=== PATIENT | female | born 1955 | race Caucasian/White ===

== ENCOUNTER 2020-04-20 10:29 | Outpatient (REF) | payer BC, SELFPAY ==
[2020-04-20 11:36] LABS: Hematocrit 26.1 % (37-47); Hemoglobin 7.9 g/dl (12.0-16.0); Mean Corpuscular HGB Conc 30.3 g/dl (31.0-35.0); Mean Corpuscular Hemoglobin 28.2 pg (27.0-33.0); Mean Corpuscular Volume 93.2 fL (80-98); Mean Platelet Volume 9.8 fL (9.4-12.3); Platelet Count 723 X10*3/uL (160-400); Red Cell Distribution Width 14.8 % (11.0-16.0); White Blood Count 6.9 X10*3/uL (4.8-10.8)
== END 2020-04-20 10:30 | disposition home or self-care (01) ==
LOC: HO.WFDLDS 10:29
PROVIDERS: Visit Provider Hospitalist
DX: Z71.1 Person with feared health complaint in whom no diagnosis is made (principal)
CPT/HCPCS: 36415; 85027

== ENCOUNTER 2020-04-28 07:31 | Outpatient (REF) | payer BC, SELFPAY ==
[2020-04-28 10:56] LABS: Hematocrit 28.2 % (37-47); Hemoglobin 8.5 g/dl (12.0-16.0); Mean Corpuscular HGB Conc 30.1 g/dl (31.0-35.0); Mean Corpuscular Hemoglobin 27.4 pg (27.0-33.0); Mean Platelet Volume 9.8 fL (9.4-12.3); Platelet Count 573 X10*3/uL (160-400); Red Cell Distribution Width 15.7 % (11.0-16.0); White Blood Count 7.9 X10*3/uL (4.8-10.8)
[2020-04-28 11:25] LABS: Iron 25 mcg/dL (30-160); Percent Iron Saturation 6 % (15-50); Total Iron Binding Capacity 389 mcg/dL (228-428); Unsaturated Iron Binding 364 ug/dL
== END 2020-04-28 07:32 | disposition home or self-care (01) ==
LOC: HO.WFDLDS 07:31
PROVIDERS: Visit Provider Hospitalist
DX: D64.9 Anemia, unspecified (principal)
CPT/HCPCS: 36415; 83540; 85027

== ENCOUNTER 2020-06-18 06:58 | Outpatient (REF) | payer BC, SELFPAY ==
[2020-06-18 07:50] LABS: MANUAL DIFF FLAG NO
[2020-06-18 07:55] LABS: Basophils Absolute Auto 0.1 X10*3/uL (0.0-0.2); Eosinophils Absolute Auto 0.5 X10*3/uL (0.0-0.4); Eosinophils Percent Auto 6.1 % (0-4); Hematocrit 32.3 % (37-47); Hemoglobin 9.5 g/dl (12.0-16.0); Imm Gran Abs Auto 0.04 X10*3/uL (0.00-0.03); Imm Gran Pct Auto 0.5 % (0.0-0.4); Lymphocytes Absolute Auto 2.2 X10*3/uL (1.2-4.9); Lymphocytes Percent Auto 26.2 % (20-40); Mean Corpuscular HGB Conc 29.4 g/dl (31.0-35.0); Mean Corpuscular Hemoglobin 23.5 pg (27.0-33.0); Mean Platelet Volume 9.6 fL (9.4-12.3); Monocytes Absolute Auto 0.6 X10*3/uL (0.1-1.2); Monocytes Percent Auto 6.7 % (2-11); Neutrophils Percent Auto 59.5 % (45-73); Platelet Count 441 X10*3/uL (160-400); Red Blood Count 4.04 X10*6/uL (4.20-5.50); Red Cell Distribution Width 18.3 % (11.0-16.0); White Blood Count 8.4 X10*3/uL (4.8-10.8)
[2020-06-18 08:19] LABS: Iron 23 mcg/dL (30-160); Percent Iron Saturation 5 % (15-50); Total Iron Binding Capacity 435 mcg/dL (228-428); Unsaturated Iron Binding 412 ug/dL
== END 2020-06-18 06:59 | disposition home or self-care (01) ==
LOC: HO.LAB 06:58
PROVIDERS: Visit Provider Family Medicine
DX: D64.9 Anemia, unspecified (principal)
CPT/HCPCS: 36415; 83540; 85025

== ENCOUNTER 2020-08-13 07:55 | Outpatient (REF) | payer BC, SELFPAY ==
[2020-08-13 08:18] LABS: MANUAL DIFF FLAG NO
[2020-08-13 08:24] LABS: Basophils Absolute Auto 0.1 X10*3/uL (0.0-0.2); Basophils Percent Auto 0.9 % (0-2); Eosinophils Absolute Auto 0.2 X10*3/uL (0.0-0.4); Eosinophils Percent Auto 4.2 % (0-4); Hematocrit 39.9 % (37-47); Hemoglobin 12.6 g/dl (12.0-16.0); Imm Gran Abs Auto 0.02 X10*3/uL (0.00-0.03); Imm Gran Pct Auto 0.4 % (0.0-0.4); Lymphocytes Absolute Auto 1.5 X10*3/uL (1.2-4.9); Lymphocytes Percent Auto 25.6 % (20-40); Mean Corpuscular HGB Conc 31.6 g/dl (31.0-35.0); Mean Corpuscular Hemoglobin 28.4 pg (27.0-33.0); Mean Corpuscular Volume 89.9 fL (80-98); Mean Platelet Volume 9.2 fL (9.4-12.3); Monocytes Absolute Auto 0.4 X10*3/uL (0.1-1.2); Monocytes Percent Auto 7.8 % (2-11); Neutrophils Absolute Auto 3.5 X10*3/uL (2.0-8.3); Neutrophils Percent Auto 61.1 % (45-73); Platelet Count 283 X10*3/uL (160-400); Red Blood Count 4.44 X10*6/uL (4.20-5.50); Red Cell Distribution Width 23.2 % (11.0-16.0); White Blood Count 5.7 X10*3/uL (4.8-10.8)
[2020-08-13 09:02] LABS: Iron 345 mcg/dL (30-160); Total Iron Binding Capacity < 362 mcg/dL (228-428); Unsaturated Iron Binding < 17 ug/dL
== END 2020-08-13 07:56 | disposition home or self-care (01) ==
LOC: HO.LAB 07:55
PROVIDERS: PCP Hospitalist; Visit Provider Family Medicine
DX: D64.9 Anemia, unspecified (principal); E61.1 Iron deficiency
CPT/HCPCS: 36415; 83540; 85025

== ENCOUNTER 2021-03-09 08:26 | Outpatient (REF) | payer BC, SELFPAY ==
[2021-03-09 10:33] LABS: Hematocrit 39.7 % (37.0-47.0); Mean Corpuscular HGB Conc 32.7 g/dl (31.0-35.0); Mean Corpuscular Hemoglobin 34.9 pg (27.0-33.0); Mean Corpuscular Volume 106.7 fL (80.0-98.0); Mean Platelet Volume 10.4 fL (9.4-12.3); Platelet Count 262 X10*3/uL (160-400); Red Blood Count 3.72 X10*6/uL (4.20-5.50); Red Cell Distribution Width 12.4 % (11.0-16.0); White Blood Count 6.3 X10*3/uL (4.8-10.8)
[2021-03-09 11:23] LABS: Alanine Aminotransferase 24 U/L (0-31); Albumin Level 3.6 g/dL (3.5-5.0); Alkaline Phosphatase 82 U/L (39-117); Anion Gap 14 (12-20); Aspartate Amino Transferase 30 U/L (5-31); Bilirubin Total 0.7 mg/dL (0.0-1.0); Blood Urea Nitrogen 9 mg/dL (9-16); Calcium 9.4 mg/dL (8.4-10.2); Carbon Dioxide 25 mmol/L (22-29); Chloride 108 mmol/L (96-108); Cholesterol 189 mg/dL; Estimated Glomerular Filt Rate > 60; Glucose Fasting 117 mg/dL (60-99); HDL Cholesterol 68 mg/dL; LDL Cholesterol Calculated 103 mg/dl; Potassium 4.1 mmol/L (3.3-5.1); Sodium 143 mmol/L (135-145); Triglycerides 94 mg/dL
== END 2021-03-09 08:27 | disposition home or self-care (01) ==
LOC: HO.WFDLDS 08:26
PROVIDERS: Visit Provider Hospitalist
DX: Z00.01 Encounter for general adult medical examination with abnormal findings (principal); E61.1 Iron deficiency; F10.20 Alcohol dependence, uncomplicated; R56.9 Unspecified convulsions; F17.200 Nicotine dependence, unspecified, uncomplicated
CPT/HCPCS: 36415; 80053; 80061; 84443; 85027

== ENCOUNTER 2021-10-02 07:56 | Outpatient (REF) | payer MEDICARE, SELFPAY ==
[2021-10-02 08:19] LABS: MANUAL DIFF FLAG NO
[2021-10-02 08:41] LABS: Basophils Percent Auto 0.5 % (0-2); Eosinophils Absolute Auto 0.3 X10*3/uL (0.0-0.4); Eosinophils Percent Auto 5.5 % (0-4); Hematocrit 39.4 % (37.0-47.0); Hemoglobin 13.4 g/dl (12.0-16.0); Imm Gran Abs Auto 0.02 X10*3/uL (0.00-0.03); Imm Gran Pct Auto 0.4 % (0.0-0.4); Lymphocytes Absolute Auto 1.3 X10*3/uL (1.2-4.9); Lymphocytes Percent Auto 23.2 % (20-40); Mean Corpuscular Hemoglobin 35.7 pg (27.0-33.0); Mean Corpuscular Volume 105.1 fL (80.0-98.0); Mean Platelet Volume 9.9 fL (9.4-12.3); Monocytes Absolute Auto 0.5 X10*3/uL (0.1-1.2); Monocytes Percent Auto 8.6 % (2-11); Neutrophils Absolute Auto 3.5 x10*3/uL (2.0-8.3); Neutrophils Percent Auto 61.8 % (45-73); Platelet Count 240 X10*3/uL (160-400); Red Blood Count 3.75 X10*6/uL (4.20-5.50); Red Cell Distribution Width 13.2 % (11.0-16.0); White Blood Count 5.7 X10*3/uL (4.8-10.8)
[2021-10-02 09:14] LABS: Alanine Aminotransferase 41 U/L (0-31); Albumin Level 4.1 g/dL (3.5-5.0); Alkaline Phosphatase 117 U/L (39-117); Anion Gap 15 (12-20); Aspartate Amino Transferase 63 U/L (5-31); Bilirubin Total 0.7 mg/dL (0.0-1.0); Blood Urea Nitrogen 6 mg/dL (9-16); Calcium 9.4 mg/dL (8.4-10.2); Carbon Dioxide 26 mmol/L (22-29); Chloride 105 mmol/L (96-108); Estimated Glomerular Filt Rate > 60; Glucose Fasting 117 mg/dL (60-99); Lipase 38 U/L (8-78); Potassium 4.2 mmol/L (3.3-5.1); Sodium 142 mmol/L (135-145); Total Protein 6.5 g/dL (6.5-8.0)
[2021-10-02 09:26] LABS: TSH reflex Free T4 4.64 uIU/mL (0.32-4.0)
[2021-10-02 09:49] LABS: Appearance Urine CLEAR; Color Urine YELLOW; Glucose Urine UA NEG (NEG); Leukocyte Esterase Urine 1+ (NEG); Nitrite Urine NEG (NEG); Urine Blood NEG (NEG); Urine Ketones 5 MG/DL (NEG); Urine Protein TRACE MG/DL (NEG-TRACE)
[2021-10-02 10:06] LABS: Free T4 (Free Thyroxine) 0.83 ng/dL (0.71-1.85)
[2021-10-02 10:12] LABS: Amorphous Sediment Urine 3+ /LPF
[2021-10-02 10:13] LABS: Bacteria Urine 1+ /LPF; Squamous Epithelial Cell Urine 2+ /LPF; WBC Urine 0-2 /HPF (0-4)
[2021-10-02 10:14] LABS: RBC Urine 0 /HPF (0)
== END 2021-10-02 07:57 | disposition home or self-care (01) ==
LOC: HO.LAB 07:56
PROVIDERS: PCP Family Medicine; Visit Provider Family Medicine
DX: Z00.00 Encounter for general adult medical examination without abnormal findings (principal); R63.6 Underweight
CPT/HCPCS: 36415; 80053; 81001; 83690; 84439; 84443; 85025

== ENCOUNTER 2022-05-11 08:18 | Outpatient (REF) | payer MEDICARE, SELFPAY ==
[2022-05-11 12:05] LABS: Cholesterol 236 mg/dL; HDL Cholesterol 67 mg/dL; LDL Cholesterol Calculated 152 mg/dl; Triglycerides 88 mg/dL
== END 2022-05-11 08:19 | disposition home or self-care (01) ==
LOC: HO.WFDLDS 08:18
PROVIDERS: Visit Provider Hospitalist
DX: Z13.220 Encounter for screening for lipoid disorders (principal); Z79.899 Other long term (current) drug therapy
CPT/HCPCS: 36415; 80061

== ENCOUNTER 2022-06-20 09:38 | Outpatient (REF) | payer MEDICARE, SELFPAY ==
--- NOTE | ~2022-06-20 | MM_ITS ---
EXAMINATION: MM SCREENING DIGITAL BREAST TOMOSYNTHESIS, BILATERAL CLINICAL INFORMATION: Screening. Asymptomatic. Family history breast cancer, sister. The lifetime risk of breast cancer based on the Tyrer-Cuzick Model is 7%. COMPARISON: Outside mammography: 07/26/2011, 06/23/2009, 01/13/2008 ([facility]). TECHNIQUE: Digital breast tomosynthesis is performed in both the craniocaudal and mediolateral oblique views along with computer-aided detection (CAD). Synthesized 2D images are generated from the tomosynthesis. FINDINGS: There are scattered areas of fibroglandular density (ACR BI-RADS breast composition Category b). There are no significant masses, abnormal calcifications, or other abnormalities. Parenchymal pattern is similar to prior outside exams. There is no developing density or architectural abnormality. The axilla and skin contours are unremarkable. No significant changes. MM/MM tomosynthesis screening BI IMPRESSION: No mammographic evidence of malignancy. ASSESSMENT: BI-RADS 1: Negative RECOMMENDATION: Routine annual mammography screening. This patient's information was entered into a reminder system with a target due date for their next mammogram.
== END 2022-06-20 09:39 | disposition home or self-care (01) ==
LOC: HO.MAMMO 09:38
PROVIDERS: PCP Hospitalist; Visit Provider Hospitalist
DX: Z12.31 Encounter for screening mammogram for malignant neoplasm of breast (principal)
CPT/HCPCS: 77063; 77067

== ENCOUNTER 2023-01-07 12:33 | Outpatient (AMB) | payer MEDICARE, SELFPAY ==
--- NOTE | 2023-01-07 12:37 | A.OFFPC_ITS ---
Vital Signs 01/07/23 12:39 01/07/23 13:41 Height 5 ft 6 in Weight 145 lb 4 oz BMI 23.4 BP 152/92 H 150/90 H Blood Pressure Location Lt brachial Rt brachial Position Sitting Sitting Respiration 13 Pulse 100 Pulse Source Pulse Oximeter Pulse Oximetry (%) 96 Oxygen Delivery Method Room Air Intake Visit Reasons: Extended exam Intake Note: Patient is here for a physical. Patient is accompanied by her spouse- Kurt. Patient reports she feels like her ears need to be cleaned due to narrow ear canals causing hearing decrease. Acid Splicer Required: No Accompanied by: Spouse Allergies No Known Allergies Allergy (Verified 01/07/23 12:54) Medication List - Last Reconciled 01/07/23 by Jimmy Tinsley CNP acetaminophen 500 mg PO Q6H PRN atorvastatin 20 mg PO BEDTIME duloxetine 120 mg PO QAM food supplemt, lactose-reduced (Ensure oral liquid) 1 ea PO DAILY 30 days ibuprofen 800 mg PO Q8H PRN levetiracetam 1,000 mg PO BID lorazepam 1 mg PO TID PRN ondansetron 8 mg PO Q8H PRN 14 days pantoprazole 20 mg PO DAILY 30 days sucralfate 1 g PO BID 14 days Tobacco use date assessed: 01/07/23 Fall risk assessment: No Falls in past year Last assessed Fall Risk: 01/07/23 Dental Screening Dental Screen Date: 01/07/23 Did you have a dental visit in the last 12 months?: Yes Did you have a dental problem in the last 6 months where you did not have access to dental care?: No Was dental information given to patient?: Patient has dentist HPI HPI Comments History of Present Illness Details 67-year-old female, accompanied by her s teja, presents for a complete physical exam. Her former PCP is PER, who is no longer with our practice. She has past medical history significant for seizure, arthritis of both hips, tobacco dependence, alcohol dependence, fatty liver, hypercholesterolemia, anxiety, and depression. She admits to taking her medications as prescribed. She is followed by psychiatry who manages her psychotropic medications. She has not had routine blood work done in over a year. Her last mammogram was in July 2022: Normal Her notes that her [place] [facility] [place]: normal She notes that her last pap smear test was 4 years ago: normal She does not recall if she has had a bone scan She states that she had lung cancer screening several years ago: normal She notes that she had the PNA vaccines a year ago She states that she had the shingrix vaccines several years ago She smokes 3-4 cigarettes daily. She has been smoking for the past 40 years. She smoked 10 cigarettes daily until 2 years ago when she cuts done to 3-4 cigarettes daily. She notes she drinks 2-3 beers every other day. She denies recreational drug use. [facility] Surgical History History of tonsillectomy History of tubal ligation Family History Father Alzheimers disease Mother Heart disease COPD (chronic obstructive pulmonary disease) CHF (congestive heart failure) Sister Brain tumor Social History (Updated 01/07/23 @ 12:47 by Anya Weller CMA) Household Members: Spouse Housing: House Alcohol intake: current Alcohol intake frequency: a few times a week Alcohol type: beer Patient Tobacco Use Status: Current everyday Tobacco user Tobacco use type: Cigarette Cigarettes Per Day: 3 Years Smoked: 45 e-Cigarette/Vaping Use: Never Used Second Hand Smoke Exposure: No service: No Current occupational status: retired Current occupational exposures/hazards: No Sexual orientation: Unable to collect Gender identity: Unable to collect Cognitive needs: No Hearing needs: No Vision needs: No Questionnaire PHQ-9 Over the last 2 weeks, how often have you been bothered by any of the following problems? 1. Little interest or pleasure in doing things: not at all 2. Feeling down, depressed, or hopeless: several days 3. Trouble falling or staying asleep, or sleeping too much: several days 4. Feeling tired or having little energy: several days 5. Poor appetite or overeating: several days 6. Feeling bad about yourself - or that you are a failure or have let yourself or your family down: not at all 7. Trouble concentrating on things, such as reading the newspaper or watching television: not at all 8. Moving or speaking so slowly that other people could have noticed. Or the opposite - being so fidgety or restless that you have been moving around a lot more than usual: not at all 9. Thoughts that you would be better off or of hurting yourself in some way: not at all Total score: 4 Depression Screening Interpretation: Negative Depression Screening Done: Yes 59125 - PHQ-9 Billing: Yes Source: Developed by Drs. Ronal Webb, Elizabeth Davis, Ryan Calvillo and colleagues, with an educational jomar from [employer]. Thrive Questionnaire Date Thrive assessed: 01/07/23 I am a: Patient What is your living situation today?: I have a steady place to live Within the past 12 months, did the food you bought not last and you didn't have the money to get more?: Never true Within the past 12 months, did you worry whether your food would run out before you got money to buy more?: Never true Do you have trouble paying for medicines?: No Do you have trouble getting transportation to medical appointments?: No Do you have trouble paying your heating and electricity bill?: No Do you have trouble taking care of your child, family member or friend?: No Do you have trouble with day-to-day activities such as bathing, preparing meals, shopping, managing finances, etc.?: No Are you currently unemployed and looking for a job?: No Are you interested in more education?: No Please select the resources that you would like help with: None Currently or been in a relationship where the following occur: no concerns repor kathryn AUDIT C Alcohol Use Questionnaire (AUDIT-C) 1. How often do you have a drink containing alcohol?: 2-3 times a week 2. How many drinks containing alcohol do you have on a typical day when you are drinking?: 1 or 2 3. How often do you have six or more drinks on one occasion?: Never Total Score: 3 ABDIAS-7 AMB Questionnaire ABDIAS-7 Date ABDIAS - 7 assessed: 01/07/23 Feeling nervous, anxious, or on edge: 2 = More than half the days Not being able to stop or control worryin = Several days Worrying too much about different things: 1 = Several days Trouble relaxin = More than half the days Being so restless that it is hard to sit still: 0 = Not at all Becoming easily annoyed or irritable: 1 = Several days Feeling afraid as if something awful might happen: 0 = Not at all Total ABDIAS-7 score (0-4 normal; 5-9 mild; 10-14 moderate; 15-21 severe): 7 Source: Developed by Drs. Ronal Webb, Elizabeth Davis, Ryan Calvillo and colleagues, with an educational jomar from [employer]. ABDIAS-7 Assessment Billing ABDIAS-7 Assessment Tool: ABDIAS-7 Assessment 97639 Review of Systems Const Details: Denies chills, Denies fatigue, Denies fever(s), Denies headache(s) and Denies weakness HEENT Denies change in vision, Denies dizziness, Denies headache(s), Denies hearing loss, Denies nasal congestion, Denies sinus pain, Denies sinus pressure and Denies sore throat Card Denies chest pain, Denies lightheadedness, Denies dyspnea and Denies other (palpitations) Resp Denies cough, Denies dyspnea and Denies wheezing GI Denies abdominal pain, Denies melena, Denies hematochezia, Denies change in bowel habits, Denies dyspepsia and Denies nausea Denies hematuria and Denies dysuria Musc Denies abnormal gait, Denies myalgias, Denies arthralgias, Denies numbness and Denies tingling Skin/Breast Denies rash, Denies unusual bruising and Denies wounds Neuro Denies abnormal gait, Denies dizziness, Denies headache(s), Denies memory loss, Denies numbness, Denies Sensory deficit (Neuro), Denies tingling and Denies weakness Psych Denies anxiety, Denies depression and Denies memory loss Endo Denies cold intolerance, Denies fatigue, Denies heat intolerance, Denies polydipsia and Denies polyuria Andrade/Lymph Denies easy bleeding and Denies easy bruising Aller/Immun Denies wheezing Physical exam (Primary Care) Vital Signs: Last Vital Signs Pulse 100 01/07/23 12:39 Resp 13 01/07/23 12:39 BP 150/90 H 01/07/23 13:41 Pulse Ox 96 01/07/23 12:39 Oxygen Delivery Method Room Air 01/07/23 12:39 BMI result Body Mass Index 23.4 Tobacco/Smoking Status: Tobacco use Status Tobacco use date assessed 01/07/23 01/07/23 12:48 Patient Tobacco Use Status Current everyday Tobacco 01/07/23 12:48 Tobacco use type Cigarette 01/07/23 12:48 e-Cigarette/Vaping Use Never Used 01/07/23 12:48 PHQ-9: PHQ-9 Score PHQ-9: Total score 4 01/07/23 15:25 Depression Screening Interpretation: Negative Thrive Assessment: Date of Thrive Assessment Date Thrive assessed 01/07/23 01/07/23 12:54 Currently or been in a relationship where the following occur: no concerns reported Const Other: General: no acute distress, well developed, alert and awake Nutritional Appearance: well nourished Orientation/consciousness: patient oriented x3 HENMT Head: Yes normocephalic and Yes atraumatic Ears: hearing grossly normal bilaterally and TM's normal bilaterally. Significant cerumen in the left ear canal General nose exam: Normal external nose present and Normal nares present Mouth: Normal oral and palatal mucosa present and moist mucous membranes Teeth and gingiva: dentition normal Throat: Yes oropharynx normal Eyes Pupils: Equal, round and reactive pupils present and Pupil accommodation reflex normal EOM: EOMs intact bilaterally Neck Neck: Yes normal visual inspection, Yes no lymphadenopathy and Yes trachea midline Thyroid: Thyroid normal Carotids: no bruits Lymphatic: no lymphadenopathy noted Chest Chest palpation & inspection: normal inspection of the chest Resp Effort & Inspection: normal respiratory effort Auscultation: clear to auscultation bilaterally Cardio Rate: regular rate Rhythm: regular rhythm Heart sounds: S1 normal heart sound present, S2 normal heart sound present, no gallops, no murmurs and no rubs Bruits: no abdominal aortic bruits and no carotid bruits GI Palpation (GI): No Abdominal aortic bruit present, Soft to palpation, nontender, No hepatosplenomegaly present and No Rebound tenderness present Auscultation: normal bowel sounds General: Yes no CVA tenderness Back/Spine/Pelvis Back: no CVA tenderness Cervical Spine: cervical ROM normal and No Cervical spine tenderness Thoracic/Lumbar Spine: thoraco-lumbar ROM normal, No pain with thoraco-lumbar ROM, No thoracic spinal tenderness and No lumbar spinal tenderness Skin General: warm and dry. Normal skin color. Normal skin turgor Lesions: no lesions Rashes: no rashes Trauma: no lacerations or abrasions Wounds: no wounds Nails: normal Neuro General: patient oriented x3, gait normal and CN's II-XI intact bilaterally Cranial nerves: Yes Equal, round and reactive pupils present Cognition (Neuro): normal cognition Gait exam (Neuro): Normal gait present Motor exam (neuro): 5/5 motor strength present throughout Sensory Exam: No Sensory deficit (Neuro) Deep tendon reflexes (DTR's): Right patellar reflex intensity grade: 2+ and Left patellar reflex intensity grade: 2+ Extrem General: Yes normal to inspection, No edema and No calf tenderness Psych Appearance: grossly normal Affect: normal affect Attitude: cooperative Thought process: Normal thought process present Assessment and Plan Assessment & Plan (1) Normal physical examination, routine: Code(s): Z00.00 - Encounter for general adult medical examination without abnormal findings Plan: No significant physical restrictions or limitations noted Encouraged to get routine fasting blood work done in follow-up in 1 month for lab reviews and chronic disease management Could not retrieve colonoscopy record. The [place] inform to request old medical records for review Return sooner with symptoms or concerns Verbalized understanding and agreed with the plan. (2) Anxiety and depression: Code(s): F41.9 - Anxiety disorder, unspecified; F32.A - Depression, unspecified Plan: PHQ-9 is normal. ABDIAS-7 score reveals mild anxiety Continue with current treatment regimen Routine exercise encouraged Continue follow-up with psychiatrist as planned Verbalized understanding and agreed with the treatment plan. (3) Hypercholesterolemia: Code(s): E78.00 - Pure hypercholesterolemia, unspecified Plan: Recent lipid labs was in April 2022. Triglyceride 88, total cholesterol 236, LDL 152, and HDL 67 Will recheck lipid panel Continue to take atorvastatin as prescribed Advised to limit foods high in saturated fat and avoid foods high trans fat Routine exercise encouraged Verbalized understanding and agreed with the treatment plan. (4) Impacted cerumen, left ear: Code(s): H61.22 - Impacted cerumen, left ear Plan: Significant cerumen in the left ear canal; TM is normal Debrox ordered. Use as prescribed May follow-up for ear irrigation Verbalized understanding and agreed with the treatment plan. (5) Tobacco dependence: Code(s): F17.200 - Nicotine dependence, unspecified, uncomplicated Plan: She smokes 3-4 cigarettes daily. She has been smoking for the past 40 years. She smoked 10 cigarettes daily until 2 years ago when she cut done to 3-4 cigarettes daily. She states that she had lung cancer screening several years ago: normal Instructed on the health risks and complications of cigarette smoking Smoking cessation encouraged Declines medication treatment for smoking cessation LDCT ordered for lung cancer screening (6) Screening for lung cancer: Code(s): Z12.2 - Encounter for screening for malignant neoplasm of respiratory organs Plan: As above (7) Alcohol dependence in controlled environment: Code(s): F10.20 - Alcohol dependence, uncomplicated Plan: She notes she drinks 2-3 beers every other day Instructed on the health risks and complications of excessive alcohol intake Advised to limit or avoid alcohol intake Declines referral to addiction medicine (8) Age-related osteoporosis without current pathological fracture: Code(s): M81.0 - Age-related osteoporosis without current pathological fracture Plan: She does not recall if she has had a bone scan DEXA scan ordered (9) Elevated blood pressure reading in office without diagnosis of hypertension: Code(s): R03.0 - Elevated blood-pressure reading, without diagnosis of hypertension Plan: Resting blood pressure is 150/90, above goal of less than 140/90 She reports history of low blood pressure readings She admits to consuming significant amount of salt at times Denies family history of hypertension Low-sodium diet encouraged Advised to continue to monitor blood pressure at home daily and to report readings persistently above 140/90 with or without symptoms Follow-up for nurse visit for blood pressure check in 2 weeks Return sooner with symptoms or concerns Verbalized understanding and agreed with treatment plan. Orders: Orders XR DEXA axial skeleton Today M81.0 - Age-related osteoporosis without current pathological fracture Medications: New carbamide peroxide 6.5% (Debrox) 5 drps otic (ear) left DAILY 4 days 15 mL 0RF Coding Level of Care Code Est Pt Prev Care >65y(83800) Diagnoses Normal physical examination, routine Z00.00 Anxiety and depression F41.9; F32.A Hypercholesterolemia E78.00 Impacted cerumen, left ear H61.22 Tobacco dependence F17.200 Screening for lung cancer Z12.2 Alcohol dependence in controlled environment F10.20 Age-related osteoporosis without current pathological fracture M81.0 Elevated blood pressure reading in office without diagnosis of hypertension R03.0 Additional Codes ABDIAS-7 Assessment Billing - ABDIAS-7 Assessment Tool: ABDIAS-7 Assessment 98165 ([id number])
[2023-01-07 12:39] VITALS: BP 152/92; PULSE 100; RESP 13; O2SAT 96; BMI 23.4
[2023-01-07 13:41] VITALS: BP 150/90
== END 2023-01-07 13:42 | disposition home or self-care (01) ==
PROVIDERS: PCP Nurse Practitioner Family; Visit Provider Nurse Practitioner Family
DX: Z00.00 Encounter for general adult medical examination without abnormal findings (principal); F41.9 Anxiety disorder, unspecified; F32.A Depression, unspecified; F10.20 Alcohol dependence, uncomplicated; E78.00 Pure hypercholesterolemia, unspecified; H61.22 Impacted cerumen, left ear; F17.210 Nicotine dependence, cigarettes, uncomplicated; Z12.2 Encounter for screening for malignant neoplasm of respiratory organs; M81.0 Age-related osteoporosis without current pathological fracture; R03.0 Elevated blood-pressure reading, without diagnosis of hypertension
CPT/HCPCS: 99397

== ENCOUNTER 2023-02-08 08:24 | Outpatient (REF) | payer MEDICARE, SELFPAY ==
[2023-02-08 11:30] LABS: Hematocrit 46.6 % (37.0-47.0); Hemoglobin 15.4 g/dl (12.0-16.0); Mean Corpuscular Hemoglobin 33.9 pg (27.0-33.0); Mean Corpuscular Volume 102.6 fL (80.0-98.0); Mean Platelet Volume 9.8 fL (9.4-12.3); Platelet Count 277 X10*3/uL (160-400); Red Blood Count 4.54 X10*6/uL (4.20-5.50); Red Cell Distribution Width 12.9 % (11.0-16.0); White Blood Count 8.8 X10*3/uL (4.8-10.8)
[2023-02-08 12:02] LABS: Alanine Aminotransferase 14 U/L (0-31); Albumin Level 4.3 g/dL (3.5-5.0); Alkaline Phosphatase 89 U/L (39-117); Anion Gap 17 (12-20); Aspartate Amino Transferase 25 U/L (5-31); Bilirubin Total 0.7 mg/dL (0.0-1.0); Blood Urea Nitrogen 13 mg/dL (9-16); Calcium 9.4 mg/dL (8.4-10.2); Carbon Dioxide 27 mmol/L (22-29); Chloride 104 mmol/L (96-108); Cholesterol 238 mg/dL (<200); Estimated Glomerular Filt Rate > 60; Glucose Fasting 94 mg/dL (60-99); HDL Cholesterol 83 mg/dL (>40); LDL Cholesterol Calculated 133 mg/dL (<100); Potassium 4.2 mmol/L (3.3-5.1); Sodium 144 mmol/L (135-145); Total Protein 7.2 g/dL (6.5-8.0); Triglycerides 112 mg/dL (<150)
[2023-02-08 12:23] LABS: TSH reflex Free T4 1.31 uIU/mL (0.32-4.0)
== END 2023-02-08 08:25 | disposition home or self-care (01) ==
LOC: HO.WFDLDS 08:24
PROVIDERS: Visit Provider Nurse Practitioner Family
DX: Z00.00 Encounter for general adult medical examination without abnormal findings (principal); E78.00 Pure hypercholesterolemia, unspecified
CPT/HCPCS: 36415; 80053; 80061; 84443; 85027

== ENCOUNTER 2023-02-12 07:56 | Outpatient (REF) | payer MEDICARE, SELFPAY ==
--- NOTE | ~2023-02-12 | MM_ITS ---
EXAMINATION: BONE DENSITOMETRY CLINICAL INDICATION: Age-related osteoporosis without current pathological fracture. COMPARISON: This is the patient's baseline examination. TECHNIQUE: Using a [employer] DXA System (software version: 13.1) manufactured by [employer], dual-energy x-ray absorptiometry was performed of the lumbar spine and left forearm radius 33%. Patient had bilateral hip replacements. The images are of good technical quality. Summary results are attached. FINDINGS: AP SPINE L1-L4: BMD 0.940 g/cm2, Z-score -0.3, T-score -2.0, osteopenia. LEFT FOREARM RADIUS 33%: BMD 0.770 g/cm2, Z-score 0.4, T-score -1.2, osteopenia. IDENTIFIED RISK FACTORS: Menopause, current smoker. HISTORY OF FRACTURE: None listed. MEDICATIONS: Calcium supplements or multivitamin, vitamin D. MM/XR DEXA axial skeleton IMPRESSION: 1. DIAGNOSIS: Osteopenia based on the lowest T-score value of -2.0 in the lumbar spine applying World Health Organization criteria. 2. 10-YEAR FRACTURE RISK PREDICTION, FRAX: Not performed in this patient without a femoral neck BMD measurement. 3. Treatment Recommendations: NOF guidelines recommend consideration for treatment in postmenopausal women and men age 50 and older presenting with the following: -A hip or vertebral (clinical or morphometric) fracture. -T-score less than or equal to -2.5 at the femoral neck or spine after appropriate evaluation to exclude secondary causes. -Low bone mass at the hip or spine and a 10-year fracture probability by FRAX of greater than or equal to 3% for hip fracture or greater than or equal to 20% for major osteoporotic fracture based on the [place] adapted WHO algorithm. 4. Other Recommendations: All treatment decisions require clinical judgment and consideration of individual patient factors, including patient preferences, comorbidities, previous drug use, risk factors not captured in the FRAX model (e.g. frailty, falls, vitamin D deficiency, increased bone turnover, interval significant decline in bone density) and possible under or overestimation of fracture risk by FRAX. Additional medical evaluation for secondary cause of low bone mineral density may be appropriate. FUTURE SCAN RECOMMENDATION: People with diagnosed cases of osteoporosis or at high risk for fracture should have regular bone mineral density tests. For patients eligible for Medicare, routine testing is allowed once every 2 years. The testing frequency can be increased to one year for patients who have rapidly progressing disease, those who are receiving or discontinuing medical therapy to restore bone mass, or have additional risk factors.
== END 2023-02-12 07:57 | disposition home or self-care (01) ==
LOC: HO.MAMMO 07:56
PROVIDERS: PCP Nurse Practitioner Family; Visit Provider Nurse Practitioner Family
DX: Z13.820 Encounter for screening for osteoporosis (principal); Z78.0 Asymptomatic menopausal state; M81.0 Age-related osteoporosis without current pathological fracture
CPT/HCPCS: 77080

== ENCOUNTER 2023-02-14 12:34 | Outpatient (AMB) | payer MEDICARE, SELFPAY ==
[2023-02-14 12:36] VITALS: BP 132/76; PULSE 103; RESP 13; TEMP 36.4; O2SAT 99; BMI 23.2
--- NOTE | 2023-02-14 12:36 | MHC.PC.OV ---
Vital Signs 02/14/23 12:36 Height 5 ft 6 in Weight 144 lb BMI 23.2 BP 132/76 Blood Pressure Location Rt brachial Position Sitting Respiration 13 Pulse 103 H Pulse Source Pulse Oximeter Temp 97.5 F Temp Source Temporal Artery Scan Pulse Oximetry (%) 99 Oxygen Delivery Method Room Air Intake Visit Reasons: abs review, chronic disease management Intake Note: Patient would like refill on ibuprofen. 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 Accompanied by: Spouse Allergies No Known Allergies Allergy (Verified 02/14/23 12:50) Medication List - Last Reconciled 02/14/23 by Jimmy Tinsley CNP atorvastatin 20 mg PO BEDTIME duloxetine 120 mg PO QAM food supplemt, lactose-reduced (Ensure oral liquid) 1 ea PO DAILY 30 days ibuprofen 800 mg PO Q8H PRN levetiracetam 1,000 mg PO BID lorazepam 1 mg PO TID PRN Tobacco use date assessed: 01/07/23 Fall risk assessment: No Falls in past year Last assessed Fall Risk: 02/14/23 Dental Screening Dental Screen Date: 02/14/23 Did you have a dental visit in the last 12 months?: Yes Did you have a dental problem in the last 6 months where you did not have access to dental care?: No Was dental information given to patient?: Patient has dentist HPI HPI Comments History of Present Illness Details 67-year-old female, accompanied by her , presents for chronic disease management follow-up and review of recent blood work She brought a BP log for the past 7 days. Her BP readings average between 117-143/62-81 She notes that she has never taking atorvastatin that was initially prescribed in April 2022. She notes that she was never informed the medication was prescribed and never picked it up from the pharmacy She reports diminished hearing of the left ear which she attributes to possible cerumen impaction. She reports history of cerumen impaction She denies acute symptoms at this time [facility] Medical History (Updated 02/14/23 @ 12:57 by Jimmy Tinsley CNP) No pertinent past medical history Surgical History History of tonsillectomy History of tubal ligation Family History Father Alzheimers disease Mother Heart disease COPD (chronic obstructive pulmonary disease) CHF (congestive heart failure) Sister Brain tumor Social History Household Members: Spouse Housing: House Alcohol intake: current Alcohol intake frequency: a few times a week Alcohol type: beer Patient Tobacco Use Status: Current everyday Tobacco user Tobacco use type: Cigarette Cigarettes Per Day: 3 Years Smoked: 45 e-Cigarette/Vaping Use: Never Used Second Hand Smoke Exposure: No service: No Current occupational status: retired Current occupational exposures/hazards: No Sexual orientation: Unable to collect Gender identity: Unable to collect Cognitive needs: No Hearing needs: Yes Vision needs: No Questionnaire Thrive Questionnaire Date Thrive assessed: 01/07/23 ABDIAS-7 AMB Questionnaire ABDIAS-7 Date ABDIAS - 7 assessed: 01/07/23 Source: Developed by Drs. Ronal Webb, Elizabeth Davis, Ryan Calvillo and colleagues, with an educational jomar from [employer]. Review of Systems Const Details: Const Denies chills, Denies fatigue, Denies fever(s), Denies headache(s) and Denies weakness ENT Denies dizziness and Denies headache(s) Card Denies chest pain, Denies lightheadedness, Denies dyspnea and Denies other (Palpitations) Resp Denies cough, Denies dyspnea, Denies wheezing and Denies other ( shortness of breath) GI Denies abdominal pain, Denies melena, Denies hematochezia, Denies change in bowel habits, Denies dyspepsia and Denies nausea Denies hematuria and Denies dysuria Musc Denies abnormal gait, Denies myalgias, Denies arthralgias, Denies numbness and Denies tingling Skin/Breast Denies rash, Denies unusual bruising and Denies wounds Neuro Denies abnormal gait, Denies dizziness, Denies headache(s), Denies memory loss, Denies numbness, Denies Sensory deficit (Neuro), Denies tingling and Denies weakness Psych Denies anxiety, Denies depression, Denies memory loss Endo Denies cold intolerance, Denies fatigue, Denies heat intolerance, Denies polydipsia and Denies polyuria Aller/Immun Denies wheezing Physical exam (Primary Care) Vital Signs: Last Vital Signs Temp 97.5 F 02/14/23 12:36 Pulse 103 H 02/14/23 12:36 Resp 13 02/14/23 12:36 BP 132/76 02/14/23 12:36 Pulse Ox 99 02/14/23 12:36 Oxygen Delivery Method Room Air 02/14/23 12:36 BMI result Body Mass Index 23.2 Tobacco/Smoking Status: Tobacco use Status Tobacco use date assessed 01/07/23 02/14/23 12:49 Patient Tobacco Use Status Current everyday Tobacco 02/14/23 12:49 Tobacco use type Cigarette 02/14/23 12:49 e-Cigarette/Vaping Use Never Used 02/14/23 12:49 Thrive Assessment: Date of Thrive Assessment Date Thrive assessed 01/07/23 02/14/23 12:49 Const Other: General: no acute distress and well developed Nutritional Appearance: well nourished Orientation/consciousness: patient oriented x3 HENMT Head is normocephalic Cerumen impaction in the left ear occluding the TM. No overt infection. Right ear canal and TM is normal Nasal turbinates and oropharynx are pink and moist Sinuses are nontender with palpation No auricular or cervical lymphadenopathy Eyes General: appearance normal, both eyes and all related structures Pupils: Equal, round and reactive pupils present EOM: EOMs intact bilaterally Resp Effort & Inspection: normal respiratory effort Auscultation: clear to auscultation bilaterally Cardio Rate: regular rate Rhythm: regular rhythm Heart sounds: S1 normal heart sound present, S2 normal heart sound present, no gallops, no murmurs and no rubs GI Palpation (GI): No Abdominal aortic bruit present, Soft to palpation, nontender, No hepatosplenomegaly present and No Rebound tenderness present Auscultation: normal bowel sounds General: Yes no CVA tenderness Back/Spine/Pelvis Back: no CVA tenderness Cervical Spine: cervical ROM normal and No Cervical spine tenderness Thoracic/Lumbar Spine: thoraco-lumbar ROM normal, No pain with thoraco-lumbar ROM, No thoracic spinal tenderness and No lumbar spinal tenderness Extrem General: Yes normal to inspection, No edema and No calf tenderness Skin General: warm and dry. Normal skin color. Normal skin turgor Neuro General: patient oriented x3, gait normal and no focal neuro deficit Cranial nerves: Yes Equal, round and reactive pupils present Cognition (Neuro): normal cognition Gait exam (Neuro): Normal gait present Sensory Exam: No Sensory deficit (Neuro) Psych Appearance: grossly normal Affect: normal affect Attitude: cooperative Thought process: Normal thought process present Assessment and Plan Assessment & Plan (1) Anxiety and depression: Code(s): F41.9 - Anxiety disorder, unspecified; F32.A - Depression, unspecified Plan: No acute symptoms Continue current treatment regimen Continue follow Psychiatry as planned Return with symptoms or concerns Verbalized understanding and agreed with the treatment plan (2) Hypercholesterolemia: Code(s): E78.00 - Pure hypercholesterolemia, unspecified Plan: Recent lab results reviewed with the patient. Unremarkable lab results except for elevated cholesterol and LDL, 238 and 133 respectively She has not taken atorvastatin since prescribed in April Atorvastatin 10 mg ordered. Take as prescribed Advised to limit foods high in saturated fat and avoid foods high trans fat Routine exercise encouraged Will recheck lipid panel in 6 weeks. Advised to fast for 10-12 hours, may drink water only, and get blood work done before her next visit Follow-up in 6 weeks Verbalized understanding and agreed with treatment plan (3) Osteopenia: Code(s): M85.80 - Other specified disorders of bone density and structure, unspecified site Plan: Recent DEXA scan revealed Osteopenia based on the lowest T-score value of -2.0 in the lumbar spine Vitamin D3 ordered. Take as prescribed Will repeat DEXA scan in 2 years Verbalized understanding and agreed with the treatment plan (4) Impacted cerumen, left ear: Code(s): H61.22 - Impacted cerumen, left ear Plan: Reports diminished hearing in the left ear which she attributes to possible cerumen impaction Cerumen impaction in the left ear occluding the TM. No overt infection. Right ear canal and TM is normal Debrox ordered. Use as prescribed Follow-up in 6 weeks for irrigation Return sooner with worsening or new symptoms Verbalized understanding and agreed with treatment plan Orders: Orders Lipid Panel 6 Weeks E78.00 - Pure hypercholesterolemia, unspecified Medications: New atorvastatin 10 mg PO BEDTIME 30 tabs 3RF 30 days carbamide peroxide 6.5% (Debrox) 5 drps otic (ear) left DAILY 15 mL 0RF 4 days cholecalciferol (vitamin D3) 50 mcg PO DAILY 90 tabs 3RF 90 days Refilled ibuprofen 800 mg PO Q8H PRN 30 tabs 2RF pain M16.0 - Bilateral primary osteoarthritis of hip Coding Level of Care Code Est Pt Level 3 (81733) Diagnoses Anxiety and depression F41.9; F32.A Hypercholesterolemia E78.00 Osteopenia M85.80 Impacted cerumen, left ear H61.22
== END 2023-02-14 13:16 | disposition home or self-care (01) ==
PROVIDERS: PCP Nurse Practitioner Family; Visit Provider Nurse Practitioner Family
DX: E78.00 Pure hypercholesterolemia, unspecified (principal); F41.9 Anxiety disorder, unspecified; F32.A Depression, unspecified; M85.80 Other specified disorders of bone density and structure, unspecified site; H61.22 Impacted cerumen, left ear
CPT/HCPCS: 99213

== ENCOUNTER 2023-03-21 09:11 | Outpatient (REF) | payer MEDICARE, SELFPAY ==
[2023-03-21 12:20] LABS: Cholesterol 181 mg/dL (<200); HDL Cholesterol 57 mg/dL (>40); LDL Cholesterol Calculated 108 mg/dL (<100); Triglycerides 83 mg/dL (<150)
== END 2023-03-21 09:12 | disposition home or self-care (01) ==
LOC: HO.WFDLDS 09:11
PROVIDERS: Visit Provider Nurse Practitioner Family
DX: E78.00 Pure hypercholesterolemia, unspecified (principal)
CPT/HCPCS: 36415; 80061

== ENCOUNTER 2023-03-25 11:30 | Outpatient (AMB) | payer MEDICARE, SELFPAY ==
--- NOTE | 2023-03-25 11:32 | MHC.PC.OV ---
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 Accompanied by: Spouse Allergies No Known Allergies Allergy (Verified 03/25/23 11:49) Medication List - Last Reconciled 03/25/23 by Jimmy Tinsley CNP atorvastatin 10 mg PO BEDTIME 30 days carbamide peroxide 6.5% (Debrox) 5 drps otic (ear) left DAILY 4 days cholecalciferol (vitamin D3) 50 mcg PO DAILY 90 days duloxetine 120 mg PO QAM food supplemt, lactose-reduced (Ensure oral liquid) 1 ea PO DAILY 30 days ibuprofen 800 mg PO Q8H PRN levetiracetam 1,000 mg PO BID lorazepam 1 mg PO TID PRN Tobacco use date assessed: 01/07/23 Fall risk assessment: No Falls in past year Last assessed Fall Risk: 03/25/23 Dental Screening Dental Screen Date: 03/25/23 Did you have a dental visit in the last 12 months?: Yes Did you have a dental problem in the last 6 months where you did not have access to dental care?: No Was dental information given to patient?: Patient has dentist HPI HPI Comments History of Present Illness Details 67-year-old female, accompanied by her , presents for hypercholesterolemia and left ear irrigation follow-up She admits to taking her medications as prescribed without adverse reactions She reports chronic bilat hip pain especially with movements and ambulation. She describes the pain as achy and sore, and 7/10 on the pain scale. The pain occasionally radiates to her right thigh. No tingling or numbness. She had both hip replaced by [facility] about 3 years ago. She is not currently on any pain regimen. She was instructed by GI to stop taking Ibuprofen due to GI issues [facility] Medical History No pertinent past medical history Surgical History History of tonsillectomy History of tubal ligation Family History Father Alzheimers disease Mother Heart disease COPD (chronic obstructive pulmonary disease) CHF (congestive heart failure) Sister Brain tumor Social History Household Members: Spouse Housing: House Alcohol intake: current Alcohol intake frequency: a few times a week Alcohol type: beer Patient Tobacco Use Status: Current everyday Tobacco user Tobacco use type: Cigarette Cigarettes Per Day: 3 Years Smoked: 45 e-Cigarette/Vaping Use: Never Used Second Hand Smoke Exposure: No service: No Current occupational status: retired Current occupational exposures/hazards: No Sexual orientation: Unable to collect Gender identity: Unable to collect Cognitive needs: No Hearing needs: No Vision needs: No Questionnaire Thrive Questionnaire Date Thrive assessed: 01/07/23 ABDIAS-7 AMB Questionnaire ABDIAS-7 Date ABDIAS - 7 assessed: 01/07/23 Source: Developed by Drs. Ronal Webb, Elizabeth Davis, Ryan Calvillo and colleagues, with an educational jomar from [employer]. Review of Systems Const Details: Const Denies chills, Denies fatigue, Denies fever(s), Denies headache(s) and Denies weakness ENT Denies dizziness and Denies headache(s) Card Denies chest pain, Denies lightheadedness, Denies dyspnea and Denies other (Palpitations) Resp Denies cough, Denies dyspnea, Denies wheezing and Denies other ( shortness of breath) GI Denies abdominal pain, Denies melena, Denies hematochezia, Denies change in bowel habits, Denies dyspepsia and Denies nausea Denies hematuria and Denies dysuria Musc Reports as per HPI Skin/Breast Denies rash, Denies unusual bruising and Denies wounds Neuro Denies abnormal gait, Denies dizziness, Denies headache(s), Denies memory loss, Denies numbness, Denies Sensory deficit (Neuro), Denies tingling and Denies weakness Psych Denies anxiety, Denies depression, Denies memory loss Endo Denies cold intolerance, Denies fatigue, Denies heat intolerance, Denies polydipsia and Denies polyuria Aller/Immun Denies wheezing Physical exam (Primary Care) Vital Signs: Last Vital Signs Temp 97.7 F 03/25/23 11:33 Pulse 87 03/25/23 11:33 Resp 13 03/25/23 11:33 BP 112/66 03/25/23 11:33 Pulse Ox 99 03/25/23 11:33 Oxygen Delivery Method Room Air 03/25/23 11:33 BMI result Body Mass Index 23.6 Tobacco/Smoking Status: Tobacco use Status Tobacco use date assessed 01/07/23 03/25/23 11:41 Patient Tobacco Use Status Current everyday Tobacco 03/25/23 11:41 Tobacco use type Cigarette 03/25/23 11:41 e-Cigarette/Vaping Use Never Used 03/25/23 11:41 Thrive Assessment: Date of Thrive Assessment Date Thrive assessed 01/07/23 03/25/23 11:41 Const Other: General: no acute distress and well developed Nutritional Appearance: well nourished Orientation/consciousness: patient oriented x3 HENMT Head: Yes normocephalic and Yes atraumatic Impacted cerumen of the left ear occluding the TM Eyes General: appearance normal, both eyes and all related structures Pupils: Equal, round and reactive pupils present EOM: EOMs intact bilaterally Resp Effort & Inspection: normal respiratory effort Auscultation: clear to auscultation bilaterally Cardio Rate: regular rate Rhythm: regular rhythm Heart sounds: S1 normal heart sound present, S2 normal heart sound present, no gallops, no murmurs and no rubs GI Palpation (GI): No Abdominal aortic bruit present, Soft to palpation, nontender, No hepatosplenomegaly present and No Rebound tenderness present Auscultation: normal bowel sounds General: Yes no CVA tenderness Back/Spine/Pelvis Back: no CVA tenderness Cervical Spine: cervical ROM normal and No Cervical spine tenderness Thoracic/Lumbar Spine: thoraco-lumbar ROM normal, No pain with thoraco-lumbar ROM, No thoracic spinal tenderness and No lumbar spinal tenderness Extrem General: Yes normal to inspection, No edema and No calf tenderness Negative straight leg raise bilaterally. No overt trauma or injury Skin General: warm and dry. Normal skin color. Normal skin turgor Neuro General: patient oriented x3, gait normal and no focal neuro deficit Cranial nerves: Yes Equal, round and reactive pupils present Cognition (Neuro): normal cognition Gait exam (Neuro): Normal gait present Sensory Exam: No Sensory deficit (Neuro) Psych Appearance: grossly normal Affect: normal affect Attitude: cooperative Thought process: Normal thought process present Assessment and Plan Assessment & Plan (1) Hypercholesterolemia: Code(s): E78.00 - Pure hypercholesterolemia, unspecified Plan: Recent lab results reviewed with the patient Total cholesterol and LDL are normal, 181 and 108 respectively Continue to take atorvastatin as prescribed Advised to limit foods high in saturated fat and avoid foods high in trans fat Routine exercise encouraged Will recheck lipid panel levels in 3 months. Advised to fast for 12 hours, may drink water only, and get blood work done before her next visit Follow-up in 3 months Verbalized understanding and agreed with treatment plan (2) Impacted cerumen, left ear: Code(s): H61.22 - Impacted cerumen, left ear Plan: Reports diminished left ear in She admits to using Debrox as prescribed Impacted cerumen of the left ear occluding the TM Some amount of cerumen removed with irrigation; significant amount remained and TM is still occluding She notes no left hearing improvement Will referred to ENT Follow-up with worsening or new symptoms Verbalized understanding and agreed with treatment plan (3) Chronic bilateral 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: Code(s): M25.551 - Pain in right hip; M25.552 - Pain in left hip; G89.28 - Other chronic postprocedural pain; Z96.643 - Presence of artificial hip joint, bilateral Plan: Chronic bilateral hip pain mostly with movement and ambulation for the past 1 year Tylenol and Voltaren gel as prescribed Warm/cold compresses encouraged Follow-up with [facility] or return with worsening or new symptoms Verbalized understanding and agreed with treatment plan Orders: Orders Lipid Panel 3 Months E78.00 - Pure hypercholesterolemia, unspecified Referrals Ear/Nose/Throat Referral H61.22 - Impacted cerumen, left ear Medications: New acetaminophen ER (Tylenol 8 Hour) 650 mg PO Q8H PRN 60 tabs 3RF pain diclofenac sodium 1% (Voltaren Arthritis Pain) apply to bilat hip 2 grams topical QID 100 grams 0RF 30 days G89.28 - Other chronic postprocedural pain, M25.551 - Pain in right hip, M25.552 - Pain in left hip, Z96.643 - Presence of artificial hip joint, bilateral Discontinued ibuprofen Discontinued Reason: Doctor's Order 800 mg PO Q8H PRN 30 tabs 2RF pain M16.0 - Bilateral primary osteoarthritis of hip Coding Level of Care Code Est Pt Level 4 (21433) Diagnoses Hypercholesterolemia E78.00 Impacted cerumen, left ear H61.22 Chronic bilateral 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
[2023-03-25 11:33] VITALS: BP 112/66; PULSE 87; RESP 13; TEMP 36.5; O2SAT 99; BMI 23.6
== END 2023-03-25 12:36 | disposition home or self-care (01) ==
LOC: HO.HMGFM 11:30
PROVIDERS: PCP Nurse Practitioner Family; Visit Provider Nurse Practitioner Family
DX: E78.00 Pure hypercholesterolemia, unspecified (principal); H61.22 Impacted cerumen, left ear; M25.551 Pain in right hip; M25.552 Pain in left hip; G89.28 Other chronic postprocedural pain; Z96.643 Presence of artificial hip joint, bilateral
CPT/HCPCS: 99214

== ENCOUNTER 2023-03-29 | Outpatient (REF) | payer MEDICARE, SELFPAY | END 2023-03-29 00:01 | disposition home or self-care (01) | LOC: CF | PROVIDERS: PCP Nurse Practitioner Family; Visit Provider Nurse Practitioner Family | DX: F17.210 Nicotine dependence, cigarettes, uncomplicated (principal) | CPT/HCPCS: G0296 ==

== ENCOUNTER 2023-03-29 09:09 | Outpatient (AMB) | payer MEDICARE, SELFPAY ==
--- NOTE | 2023-03-29 09:18 | A.OFFVIS_ITS ---
Intake Intake Visit Reasons: LDCT SD Allergies No Known Allergies Allergy (Verified 03/25/23 11:49) HPI HPI Comments History of Present Illness Details Anne Marie is a pleasant 67 year old female, current minimal smoker 3/day (for the past year) with a 25 PYH. Patient has been smoking since age 16 for 51 years at 1/2 ppd. Denies marijuana use. Denies exposure to chemicals or substances like asbestos. Denies second hand smoke exposure. Denies known family history of lung cancer. Denies personal history of cancers. Denies chest CT in last year. Denies recent travel outside the [place]. Denies testing positive for COVID. Admits receiving COVID Vaccine. Denies fever, chills, chest pain, new cough, hemoptysis or unintentional weight loss. Lung Cancer Screening Questionnaire reviewed with patient by provider. Shared Decision Making Completed. Discussed in detail with patient, the risk versus benefit of LDCT screening. Patient in agreement of proceeding with scan. [facility] Medical History No pertinent past medical history Surgical History History of tonsillectomy History of tubal ligation Family History Father Alzheimers disease Mother Heart disease COPD (chronic obstructive pulmonary disease) CHF (congestive heart failure) Sister Brain tumor Social History Household Members: Spouse Housing: House Alcohol intake: current Alcohol intake frequency: a few times a week Alcohol type: beer Patient Tobacco Use Status: Current everyday Tobacco user Tobacco use type: Cigarette Cigarettes Per Day: 3 Years Smoked: 45 e-Cigarette/Vaping Use: Never Used Second Hand Smoke Exposure: No service: No Current occupational status: retired Current occupational exposures/hazards: No Sexual orientation: Unable to collect Gender identity: Unable to collect Cognitive needs: No Hearing needs: No Vision needs: No Assessment & Plan Assessment & Plan (1) Nicotine dependence, cigarettes, uncomplicated: Code(s): F17.210 - Nicotine dependence, cigarettes, uncomplicated Plan Shared decision-making visit completed today in office. This patient meets criteria for LDCT for lung cancer screening purposes and is asymptomatic. Offered smoking cessation. Patient has been scheduled for a low dose chest CT for screening purposes at [facility]. We discussed how the results will be obtained depending on CT findings. RADS 1 and RADS 2 will receive a letter with results and will follow up for annual LDCT. Patient informed they will be contacted at later date to schedule upcoming LDCT scan. RADS 3 and RADS 4 will receive a telephone call, or an office visit after reviewing case at our Lung Cancer Conference to determine when the next LDCT will be scheduled or further interventions that may be needed. Discussed importance of screening program and compliance with yearly LDCT scan as scheduled. Risks, benefits, and alternatives were discussed in detail and patient agrees to proceed. Risks discussed include but are not limited to: radiation exposure and possibility of additional intervention for benign disease. Benefits include detection of lung cancer at an early stage. A copy of today's visit and LDCT results will be sent to patient's PCP. Incidental findings on LDCT are PCP's responsibility. If there are incidental findings, our office will ensure that PCP office is aware of these findings. All questions were answered and patient is in agreement of plan. Coding Level of Care Code Lung Cancer Screening G0296 Diagnoses Nicotine dependence, cigarettes, uncomplicated F17.210
== END 2023-03-29 10:42 | disposition home or self-care (01) ==
PROVIDERS: PCP Nurse Practitioner Family; Visit Provider Nurse Practitioner Family
DX: F17.210 Nicotine dependence, cigarettes, uncomplicated (principal)
CPT/HCPCS: G0296

== ENCOUNTER 2023-03-29 09:30 | Outpatient (REF) | payer MEDICARE, SELFPAY ==
--- NOTE | ~2023-03-29 | CT_ITS ---
EXAMINATION: CT CHEST SCREENING CLINICAL INFORMATION: Current smoker with 50 pack year history. COMPARISON: 08/01/2018 and 02/03/2016 TECHNIQUE: Multidetector volumetric CT imaging of the chest is performed without contrast using low dose technique. Additional 2D coronal and sagittal reformatted images and axial 3D maximum intensity projection (MIP) images are generated on the CT workstation. This CT examination was performed using dose optimization techniques as appropriate, variously including the following: *Automated exposure control *Adjustment of mA and/or kV according to patient size (this includes techniques or standardized protocols for targeted exams where dose is matched to indication/reason for exam; i.e. extremities or head) *Use of iterative reconstruction technique DLP: 48 mGy-cm FINDINGS: DIRECTOR PAYMENT: Hyperinflation with flattening of the hemidiaphragms. LUNGS: Minimal biapical pleural-parenchymal thickening. Trachea and bronchi are patent. Lungs are hyper aerated with mild centrilobular emphysema. Bilateral lower lobe atelectasis. MEDIASTINUM: Unremarkable thyroid. Nonspecific mediastinal lymph nodes. No pathologic lymphadenopathy. Nonenlarged heart. No pericardial effusion. Unchanged 4.1 cm maximum diameter ascending aorta with mild atherosclerotic calcifications. Nonenlarged pulmonary arteries. CORONARY ARTERY CALCIFICATION: Mild. PLEURA: There is no pleural effusion. No pleural mass or thickening. AXILLA: No lymphadenopathy. UPPER ABDOMEN: On final CT acquisition, potential ill-defined hypodensity in the pancreatic tail questioned, 3:68, incomplete visualization of potential lesion not excluded. OSSEOUS STRUCTURES: Multilevel mild compression deformities and degenerative changes. No suspicious osseous lesions. CT/CT lung screening IMPRESSION: No suspicious pulmonary nodules. Partial visualization pancreatic tail hypodensity, possibly artifactual, lesion not excluded. Pancreatic protocol CT recommended. ASSESSMENT: Lung-RADS category 1S: Negative RECOMMENDATION: Routine annual low-dose CT screening in [address] recommended for pancreatic tail hypodensity.
== END 2023-03-29 09:31 | disposition home or self-care (01) ==
LOC: HO.CT 09:30
PROVIDERS: PCP Nurse Practitioner Family; Visit Provider Nurse Practitioner Family
DX: F17.210 Nicotine dependence, cigarettes, uncomplicated (principal)
CPT/HCPCS: 71271

== ENCOUNTER 2023-05-27 08:24 | Outpatient (REF) | payer MEDICARE, SELFPAY ==
--- NOTE | ~2023-05-27 | CT_ITS ---
EXAMINATION: CT ABDOMEN AND PELVIS WITHOUT AND WITH CONTRAST CLINICAL INFORMATION: Disease of the pancreas. COMPARISON: CT abdomen and pelvis 05/21/2018. TECHNIQUE: Multidetector volumetric imaging was performed of the abdomen and pelvis before and after the IV administration of 85 mL of Omnipaque 350 intravenous contrast. Sagittal and coronal reformatted images were obtained on the technologist's workstation. This CT examination was performed using dose optimization techniques as appropriate, variously including the following: *Automated exposure control *Adjustment of mA and/or kV according to patient size (this includes techniques or standardized protocols for targeted exams where dose is matched to indication/reason for exam; i.e. extremities or head) *Use of iterative reconstruction technique DLP: 793 mGy-cm. FINDINGS: LUNG BASES: The visualized lung bases are unremarkable. Right basilar scarring is present. LIVER, GALLBLADDER, AND BILIARY TREE: The liver is normal in size, shape, and attenuation. A few scattered benign hepatic cysts are unchanged. No focal hepatic lesion or biliary ductal dilatation is present. The gallbladder has some layering subtle high density, which could represent gallstones. Ultrasound would be more sensitive for detection. The gallbladder is otherwise unremarkable with no evidence of calcified gallstones, gallbladder wall thickening, or obvious pericholecystic inflammatory changes. PANCREAS: Unremarkable. No pancreatic masses, calcifications or ductal dilatation is seen. SPLEEN: Unremarkable. ADRENAL GLANDS: Unremarkable. KIDNEYS AND URETERS: The kidneys are normal in size, shape, and attenuation. No hydronephrosis, hydroureter, or calculi seen. No perinephric stranding. BLADDER: Unremarkable. GASTROINTESTINAL TRACT: There are extensive sigmoid diverticula without evidence of diverticulitis. The small and large bowel are otherwise unremarkable. The appendix is unremarkable. ABDOMINAL WALL: No significant hernia is appreciated. There is a tiny periumbilical hernia seen containing only fat. LYMPH NODES: No retroperitoneal lymphadenopathy. VASCULAR: Calcific atherosclerotic changes are present in the aorta and iliofemoral vessels. There is no evidence of an abdominal aortic aneurysm. 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 There is a new area of dilatation of the proximal celiac measuring 1.3 cm, which could be secondary to dissection or possibly poststenotic dilatation. These findings are not well demonstrated as the exam is not a CT angiogram. PELVIC VISCERA: The uterus is tilted to the right and there is a large area of popcorn calcification consistent with exophytic subserosal fibroid, unchanged from 05/21/2018. OSSEOUS STRUCTURES: New bilateral hip prostheses are present since the prior study. Mild degenerative changes are present throughout the spine, most marked at L5-S1. Mild compression superior endplate of L4 is unchanged. CT/CT abdomen pelvis wo/w IV con IMPRESSION: 1. The pancreas is unremarkable. 2. 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 3. New area of dilatation of the proximal celiac measuring 1.3 cm, which could be secondary to dissection or possibly poststenotic dilatation. If clinically indicated, a CT angiogram would be better for further evaluation. 4. Other incidental findings as described above. Fleischner guidelines were followed.
[2023-05-27] MEDS: iohexoL 350 MG/ML 100 ML INFUS..BTL 85 ML IV (11:03)
[2023-05-27] MEDS: Barium Sulfate Oral (Berry) 450 ML ORAL.SUSP 900 ML PO (11:20)
[2023-05-28 06:36] LABS: Creatinine POC 0.7 mg/dL (0.5-1.4); GFR POC > 60
== END 2023-05-27 08:25 | disposition home or self-care (01) ==
LOC: HO.CT 08:24
PROVIDERS: PCP Nurse Practitioner Family; Visit Provider Nurse Practitioner Family
DX: K86.9 Disease of pancreas, unspecified (principal)
CPT/HCPCS: 74178; 82565; Q9967

== ENCOUNTER 2023-06-18 08:38 | Outpatient (REF) | payer MEDICARE, SELFPAY ==
[2023-06-18 12:45] LABS: Cholesterol 177 mg/dL (<200); HDL Cholesterol 78 mg/dL (>40); LDL Cholesterol Calculated 83 mg/dL (<100); Triglycerides 81 mg/dL (<150)
== END 2023-06-18 08:39 | disposition home or self-care (01) ==
LOC: HO.WFDLDS 08:38
PROVIDERS: Visit Provider Nurse Practitioner Family
DX: E78.00 Pure hypercholesterolemia, unspecified (principal)
CPT/HCPCS: 36415; 80061

== ENCOUNTER 2023-06-24 09:59 | Outpatient (AMB) | payer MEDICARE, SELFPAY ==
--- NOTE | 2023-06-24 10:00 | MHC.PC.OV ---
Vital Signs 06/24/23 10:01 06/24/23 10:33 Height 5 ft 6 in Weight 147 lb 8 oz BMI 23.8 BP 140/80 H 120/84 Blood Pressure Location Lt brachial Lt brachial Position Sitting Standing Respiration 14 Pulse 82 Pulse Source Pulse Oximeter Temp 97.6 F Temp Source Temporal Artery Scan Pulse Oximetry (%) 99 Oxygen Delivery Method Room Air Intake Visit Reasons: f/u hyperlipidemia and left ear irrigation Reports Developer Required: No Accompanied by: Spouse Allergies No Known Allergies Allergy (Verified 06/24/23 10:07) Tobacco use date assessed: 06/24/23 Fall risk assessment: No Falls in past year Last assessed Fall Risk: 06/24/23 Dental Screening Dental Screen Date: 03/25/23 HPI HPI Comments History of Present Illness Details 68-year-old female, accompanied by her spouse, presents for hypercholesterolemia follow-up She admits to taking her medications as prescribed without adverse reactions Reports controlled anxiety and depression symptoms She offers no complaints and denies acute symptoms at this time She notes that she was evaluated by ENT about 3 weeks, cerumen removed, and referred to audiology who deemed she did not need hearing aids [facility] Medical History No pertinent past medical history Surgical History History of tonsillectomy History of tubal ligation Family History Father Alzheimers disease Mother Heart disease COPD (chronic obstructive pulmonary disease) CHF (congestive heart failure) Sister Brain tumor Social History Household Members: Spouse Housing: House Alcohol intake: current Alcohol intake frequency: a few times a week Alcohol type: beer Patient Tobacco Use Status: Current everyday Tobacco user Tobacco use type: Cigarette Cigarettes Per Day: 3 Years Smoked: 45 e-Cigarette/Vaping Use: Never Used Second Hand Smoke Exposure: No service: No Current occupational status: retired Current occupational exposures/hazards: No Sexual orientation: Unable to collect Gender identity: Unable to collect Cognitive needs: No Hearing needs: No Vision needs: No Questionnaire Thrive Questionnaire Date Thrive assessed: 11/13/23 ABDIAS-7 AMB Questionnaire ABDIAS-7 Date ABDIAS - 7 assessed: 01/07/23 Source: Developed by Drs. Ronal Webb, Elizabeth Davis, Ryan Calvillo and colleagues, with an educational jomar from [employer]. Review of Systems Const Details: Const Denies chills, Denies fatigue, Denies fever(s), Denies headache(s) and Denies weakness ENT Denies dizziness and Denies headache(s) Card Denies chest pain, Denies lightheadedness, Denies dyspnea and Denies other (Palpitations) Resp Denies cough, Denies dyspnea, Denies wheezing and Denies other ( shortness of breath) GI Denies abdominal pain, Denies melena, Denies hematochezia, Denies change in bowel habits, Denies dyspepsia and Denies nausea Denies hematuria and Denies dysuria Musc Denies abnormal gait, Denies myalgias, Denies arthralgias, Denies numbness and Denies tingling Skin/Breast Denies rash, Denies unusual bruising and Denies wounds Neuro Denies abnormal gait, Denies dizziness, Denies headache(s), Denies memory loss, Denies numbness, Denies Sensory deficit (Neuro), Denies tingling and Denies weakness Psych Denies anxiety, Denies depression, Denies memory loss Endo Denies cold intolerance, Denies fatigue, Denies heat intolerance, Denies polydipsia and Denies polyuria Aller/Immun Denies wheezing Physical exam (Primary Care) Vital Signs: Last Vital Signs Temp 97.6 F 06/24/23 10:01 Pulse 82 06/24/23 10:01 Resp 14 06/24/23 10:01 BP 140/80 H 06/24/23 10:01 Pulse Ox 99 06/24/23 10:01 Oxygen Delivery Method Room Air 06/24/23 10:01 BMI result Body Mass Index 23.8 Tobacco/Smoking Status: Tobacco use Status Tobacco use date assessed 06/24/23 06/24/23 10:09 Patient Tobacco Use Status Current everyday Tobacco 06/24/23 10:06 Tobacco use type Cigarette 06/24/23 10:06 e-Cigarette/Vaping Use Never Used 06/24/23 10:06 Thrive Assessment: Date of Thrive Assessment Date Thrive assessed 01/07/23 06/24/23 10:06 Const Other: General: no acute distress and well developed Nutritional Appearance: well nourished Orientation/consciousness: patient oriented x3 HENMT Head is normocephalic Bilateral ear canal and TM are normal Nasal turbinates and oropharynx are pink and moist Sinuses are nontender with palpation No auricular or cervical lymphadenopathy Eyes General: appearance normal, both eyes and all related structures Pupils: Equal, round and reactive pupils present EOM: EOMs intact bilaterally Resp Effort & Inspection: normal respiratory effort Auscultation: clear to auscultation bilaterally Cardio Rate: regular rate Rhythm: regular rhythm Heart sounds: S1 normal heart sound present, S2 normal heart sound present, no gallops, no murmurs and no rubs GI Palpation (GI): No Abdominal aortic bruit present, Soft to palpation, nontender, No hepatosplenomegaly present and No Rebound tenderness present Auscultation: normal bowel sounds General: Yes no CVA tenderness Back/Spine/Pelvis Back: no CVA tenderness Cervical Spine: cervical ROM normal and No Cervical spine tenderness Thoracic/Lumbar Spine: thoraco-lumbar ROM normal, No pain with thoraco-lumbar ROM, No thoracic spinal tenderness and No lumbar spinal tenderness Extrem General: Yes normal to inspection, No edema and No calf tenderness Skin General: warm and dry. Normal skin color. Normal skin turgor Neuro General: patient oriented x3, gait normal and no focal neuro deficit Cranial nerves: Yes Equal, round and reactive pupils present Cognition (Neuro): normal cognition Gait exam (Neuro): Normal gait present Sensory Exam: No Sensory deficit (Neuro) Psych Appearance: grossly normal Affect: normal affect Attitude: cooperative Thought process: Normal thought process present Assessment and Plan Assessment & Plan (1) Hypercholesterolemia: Code(s): E78.00 - Pure hypercholesterolemia, unspecified Plan: Recent triglyceride, total cholesterol, LDL, and HDL levels are normal, 81, 177, 83, and 78 respectively Continue to take atorvastatin 10 mg daily Healthy diet and routine exercise encouraged Advised to fast for 10-12 hours, may drink water only, and get blood work done before her next visit Follow-up in 6 months Return sooner with symptoms or concerns Verbalized understanding and agreed with the plan Recent abdominal CT scan results reviewed with the patient (2) Anxiety and depression: Code(s): F41.9 - Anxiety disorder, unspecified; F32.A - Depression, unspecified Plan: Reports controlled anxiety and depression symptoms Advised to continue current treatment regimen Continue follow-up psychiatrist as planned Routine exercise encouraged Return with symptoms or concerns Verbalized understanding and agreed with treatment plan Orders: Orders Lipid Panel 6 Months E78.00 - Pure hypercholesterolemia, unspecified Coding Level of Care Code Est Pt Level 4 (33088) Complex EM visit Add On G2211 Diagnoses Hypercholesterolemia E78.00 Anxiety and depression F41.9; F32.A
[2023-06-24 10:01] VITALS: BP 140/80; PULSE 82; RESP 14; TEMP 36.4; O2SAT 99; BMI 23.8
[2023-06-24 10:33] VITALS: BP 120/84
== END 2023-06-24 10:44 | disposition home or self-care (01) ==
PROVIDERS: PCP Nurse Practitioner Family; Visit Provider Nurse Practitioner Family
DX: E78.00 Pure hypercholesterolemia, unspecified (principal); F41.9 Anxiety disorder, unspecified; F32.A Depression, unspecified
CPT/HCPCS: 99214; G2211

== ENCOUNTER 2023-11-06 09:05 | Day surgery (SDC) | payer MEDICARE, SELFPAY ==
[2023-11-04 14:03] VITALS: BMI 21.9
[2023-11-06 09:21] VITALS: BMI 21.9
[2023-11-06 09:33] VITALS: BP 140/86; PULSE 90; RESP 16; TEMP 36.7; O2SAT 98
[2023-11-06] MEDS: Lactated Ringers 1,000 ML 80 ML IVCONT (09:35)
--- NOTE | 2023-11-06 09:45 | P.CONAN_ITS ---
PMF Active Problems Active Problems: All Active Problems Pancreatic lesion (Acute) Nicotine dependence, cigarettes, uncomplicated (Acute) Chronic bilateral 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 (Acute) Osteopenia (Acute) Elevated blood pressure reading in office without diagnosis of hypertension (Acute) Screening for lung cancer (Acute) Age-related osteoporosis without current pathological fracture (Acute) Normal physical examination, routine (Acute) Laboratory tests ordered as part of a complete physical exam (CPE) (Acute) Hypercholesterolemia (Acute) Anxiety and depression (Acute) Screening mammogram for breast cancer (Acute) Screening for cholesterol level (Acute) Impacted cerumen, left ear (Acute) Abnormal laboratory test (Acute) Impacted cerumen of both ears (Acute) Bilateral otitis media (Acute) Chronic pancreatitis due to chronic alcoholism (Acute) Transaminitis (Acute) Fatty liver (Acute) Gall bladder inflammation (Acute) Nausea (Acute) Abdominal pain (Acute) Weight loss of more than 10% body weight (Acute) Underweight due to inadequate caloric intake (Acute) Abnormal physical evaluation (Acute) Tobacco dependence (Acute)- last cigarette this morning Alcohol dependence in controlled environment (Acute) Low iron (Acute) Anemia (Acute) Concerned about anemia without diagnosis (Acute) Seizure (Acute) Arthritis of both hips (Acute) Past Medical History Medical History Hx of fracture of wrist Subdural hematoma Alcohol abuse Mesenteric artery thrombosis Elevated liver enzymes Hx of fracture of rib GERD (gastroesophageal reflux disease) Diabetes Arthritis Depression Anxiety Family History Family History Father Alzheimers disease Mother Heart disease COPD (chronic obstructive pulmonary disease) CHF (congestive heart failure) Sister Brain tumor Family history of problems with anesthesia: No Surgical History Surgical History Hx of bilateral hip replacements History of esophagogastroduodenoscopy (EGD) H/O colonoscopy History of tonsillectomy History of tubal ligation History of Problems with Anesthesia: No Social History Social History Household Members: Spouse Housing: House Alcohol intake: current Alcohol intake frequency: a few times a week Alcohol type: beer Patient Tobacco Use Status: Current everyday Tobacco user Tobacco use type: Cigarette Cigarettes Per Day: 4 Years Smoked: 45 e-Cigarette/Vaping Use: Never Used Second Hand Smoke Exposure: No Use of substances other than those prescribed or required for medical reasons: No Have you been hit, kicked, punched, or otherwise hurt by someone within the past year? If so, by whom?: No Are you DNR?: No Advance Directives: No Advance Directives Information Provided: Yes Recently lost weight without trying: No Nutrition Risks: No Nutritional Risk service: No Current occupational status: retired Current occupational exposures/hazards: No Sexual orientation: Unable to collect Gender identity: Unable to collect Cognitive needs: No Hearing needs: No Vision needs: No Meds Allergies Allergy/AdvReac Type Severity Reaction Status Date / Time No Known Allergies Allergy Verified 11/06/23 09:32 Active Medications: Current Medications Lactated Ringer's (Lr) 1,000 mls @ 80 mls/hr IVCONT .[id number] ALAYNA Last Admin: 11/06/23 09:35 Dose: 80 mls/hr Sodium Biphosphate/Sodium Phosphate (Sodium Phosphate,Crosby-Dibasic 133 Ml Enema) 133 ml SC ONCE PRN PRN Reason: Poor Colonoscopy Prep Results Home Medications ?Medication ?Instructions ?Recorded ?Confirmed ?Last Taken ?Type duloxetine 60 mg capsule,delayed 120 mg PO QAM 01/12/20 11/04/23 Unknown History release lorazepam 1 mg tablet 1 mg PO TID PRN Anxiety 01/12/20 11/04/23 Unknown History budesonide 3 mg 3 mg PO DAILY PRN Abdominal 11/04/23 Unknown History capsule,delayed,extended release Discomfort Exam Height,Weight and Vital Signs: Height 5 ft 9 in Weight 67.132 kg Last Vital Signs Temp 98.0 F 11/06/23 09:33 Pulse 90 11/06/23 09:33 Resp 16 11/06/23 09:33 BP 140/86 H 11/06/23 09:33 Pulse Ox 98 11/06/23 09:33 O2 Del Method Room Air 11/06/23 09:33 Airway Mallampati Class: III (Overbite) TM Dist: >3cm Neck ROM: Full Loose/Missing/Broken Teeth: Yes (Caps front. Missing teeth back) Heart: RRR Lungs: CTAB Assessment and Plan Assessment Anesthesia Assessment: Anesthesia Plan Discussed and Chart Reviewed Final Anesthetic Review Family History of Problems with Anesthesia: No History of Problems with Anesthesia: No NPO: Yes ASA Class: III Final Preanesthetic Review: No Changes in Pt Med Stat, Meds/Allgs Chart Reviewed, Consent Obtained/Reviewed and Anes Risks/Benef Reviewed Patient Risk: Intermediate Procedure Risk: Low Assessment/Block/Sedation in SS: Assess/Block/Sedation-SS Anesthetic Plan Anesthetic Plan: TIVA Disposition: Standard PACU
--- NOTE | 2023-11-06 10:37 | PM.OP ---
Brief Operative Note Date of Service: 11/06/23 Pre-op diagnosis: Screening, history of polyps Post-op diagnosis: other (Diverticulosis) Procedure: Colonoscopy to the cecum Surgeon: Ronal Abraham MD Anesthesia: MAC Was an Beauty Operator used for this Procedure?: No Estimated blood loss (mL): 0 Pathology: none sent Condition: stable Disposition: PACU
[2023-11-06 10:41] VITALS: BP 87/53; PULSE 79; RESP 16; TEMP 36.1; O2SAT 97
--- NOTE | 2023-11-06 10:48 | OP_ITS ---
DATE OF SERVICE: 11/06/2023 SURGEON: Ronal Abraham MD INDICATIONS: The patient presents for followup of personal history of tubular adenoma of the colon and colorectal cancer screening. Full consent has been obtained from her for this, including risks of bleeding and perforation. PREOPERATIVE DIAGNOSIS: POSTOPERATIVE DIAGNOSIS: PROCEDURE PERFORMED: Colonoscopy to the cecum. ESTIMATED BLOOD LOSS: COMPLICATIONS: ANESTHESIA: Monitored anesthesia care. ASSISTANTS: SPECIMENS: PREOPERATIVE DIAGNOSES: Colorectal cancer screening and personal history of tubular adenoma of the colon. POSTOPERATIVE DIAGNOSES: Colorectal cancer screening, personal history of tubular adenoma of the colon, diverticulosis, and internal hemorrhoids. DESCRIPTION OF PROCEDURE: The patient was placed in left lateral decubitus position. The digital rectal exam revealed no abnormalities. The Olympus video pediatric colonoscope was then entered into the rectum and advanced easily to the cecum. Once in the cecum, I did identify normal-appearing cecal pouch with appendiceal orifice and a normal-appearing ileocecal valve. The entire cecum was well visualized and appeared normal other than a single diverticulum. There was transillumination of light deep in the right lower quadrant. The scope was slowly withdrawn assessing all mucosal surfaces carefully. Preparation was excellent. I did not visualize any sign of polyps, colitis, nor angiodysplasias. There was a mild amount of diverticulosis in the ascending colon. There was a moderate amount of diverticulosis in the descending and sigmoid colon. In the rectum, scope was retroflexed, visualizing internal hemorrhoids, but no other pathology. The rectal mucosa appeared normal. The scope was straightened and withdrawn from the patient. She tolerated the procedure well and was returned to the recovery area in stable condition. IMPRESSION: 1. Diverticulosis. 2. Internal hemorrhoids. PLAN: I would recommend a repeat colonoscopy in 5 years for further screening given her previous history of tubular adenomas. She will, otherwise, see me on a p.r.n. basis. That has been discussed with her . MD JENNIFER Reyes/PENNY / [id number]
[2023-11-06 10:58] VITALS: BP 108/54; PULSE 80; RESP 17; TEMP 36.2; O2SAT 99
== END 2023-11-06 11:30 | disposition home or self-care (01) ==
PROVIDERS: PCP Nurse Practitioner Family; Visit Provider Internal Medicine
PROC: 0DJD8ZZ Inspection of Lower Intestinal Tract, Via Natural or Artificial Opening Endoscopic (ICD-10-PCS; CPT 45378; principal; 2023-11-06 09:30)
DX: Z12.11 Encounter for screening for malignant neoplasm of colon (principal); Z86.010 Personal history of colon polyps; K57.30 Diverticulosis of large intestine without perforation or abscess without bleeding; K64.8 Other hemorrhoids; K21.9 Gastro-esophageal reflux disease without esophagitis; E11.9 Type 2 diabetes mellitus without complications; M16.12 Unilateral primary osteoarthritis, left hip; F10.188 Alcohol abuse with other alcohol-induced disorder; F32.A Depression, unspecified; F41.1 Generalized anxiety disorder; Z79.899 Other long term (current) drug therapy; Z56.0 Unemployment, unspecified
CPT/HCPCS: G0105; J1596; J2250; J2704

== ENCOUNTER 2023-12-02 10:01 | Outpatient (AMB) | payer MEDICARE, SELFPAY ==
--- NOTE | 2023-12-02 10:04 | A.OFFPC_ITS ---
Vital Signs 12/02/23 10:11 Height 5 ft 9 in Weight 146 lb 6 oz BMI 21.6 BP 124/78 Blood Pressure Location Lt brachial Position Sitting Respiration 16 Pulse 88 Pulse Source Pulse Oximeter Temp 97.8 F Temp Source Oral Pulse Oximetry (%) 97 Oxygen Delivery Method Room Air Intake Visit Reasons: HLD Intake Note: patient here for Dj First Sampler Required: No Is last menstrual period known: No Post menopausal: No Patient : No Allergies No Known Allergies Allergy (Verified 12/02/23 10:30) Medication List - Last Reconciled 12/02/23 by Jimmy Tinsley CNP budesonide DR-ER 3 mg PO DAILY PRN duloxetine 120 mg PO QAM lorazepam 1 mg PO TID PRN Tobacco use date assessed: 12/02/23 Fall risk assessment: No Falls in past year Last assessed Fall Risk: 12/02/23 Dental Screening Dental Screen Date: 12/02/23 Did you have a dental visit in the last 12 months?: Yes Did you have a dental problem in the last 6 months where you did not have access to dental care?: No Was dental information given to patient?: Patient has dentist HPI HPI Comments History of Present Illness Details 68-year-old female, accompanied by her h band, presents for hyperlipidemia follow-up She admits to taking her medications as prescribed without adverse reactions. She was on atorvastatin 10 mg at bedtime; she stopped taking the medication a few months ago She offers no complaints and denies acute symptoms at this time She forgot to get lipid panel blood work done for this visit as planned [facility] Medical History Hx of fracture of wrist Subdural hematoma Alcohol abuse Mesenteric artery thrombosis Elevated liver enzymes Hx of fracture of rib GERD (gastroesophageal reflux disease) Diabetes Arthritis Depression Anxiety Surgical History Hx of bilateral hip replacements History of esophagogastroduodenoscopy (EGD) H/O colonoscopy History of tonsillectomy History of tubal ligation Family History Father Alzheimers disease Mother Heart disease COPD (chronic obstructive pulmonary disease) CHF (congestive heart failure) Sister Brain tumor Social History Household Members: Spouse Housing: House Alcohol intake: current Alcohol intake frequency: a few times a week Alcohol type: beer Patient Tobacco Use Status: Current everyday Tobacco user Tobacco use type: Cigarette Cigarettes Per Day: 4 Years Smoked: 45 e-Cigarette/Vaping Use: Never Used Second Hand Smoke Exposure: No service: No Current occupational status: retired Current occupational exposures/hazards: No Sexual orientation: Unable to collect Gender identity: Unable to collect Cognitive needs: No Hearing needs: No Vision needs: No Questionnaire Thrive Questionnaire Date Thrive assessed: 01/07/23 AUDIT C Alcohol Use Questionnaire (AUDIT-C) 1. How often do you have a drink containing alcohol?: 4 or more times a week 2. How many drinks containing alcohol do you have on a typical day when you are drinking?: 1 or 2 3. How often do you have six or more drinks on one occasion?: Never Total Score: 4 ABDIAS-7 AMB Questionnaire ABDIAS-7 Date ABDIAS - 7 assessed: 01/07/23 Source: Developed by Drs. Ronal Webb, Elizabeth Davis, Ryan Calvillo and colleagues, with an educational jomar from [employer] by [employer]. Review of Systems Const Details: Const Denies chills, Denies fatigue, Denies fever(s), Denies headache(s) and Denies weakness ENT Denies dizziness and Denies headache(s) Card Denies chest pain, Denies lightheadedness, Denies dyspnea and Denies other (Palpitations) Resp Denies cough, Denies dyspnea, Denies wheezing and Denies other ( shortness of breath) GI Denies abdominal pain, Denies melena, Denies hematochezia, Denies change in bowel habits, Denies dyspepsia and Denies nausea Denies hematuria and Denies dysuria Musc Denies abnormal gait, Denies myalgias, Denies arthralgias, Denies numbness and Denies tingling Skin/Breast Denies rash, Denies unusual bruising and Denies wounds Psych Denies anxiety, Denies depression Neuro Denies abnormal gait, Denies dizziness, Denies headache(s), Denies memory loss, Denies numbness, Denies Sensory deficit (Neuro), Denies tingling and Denies weakness Endo Denies cold intolerance, Denies fatigue, Denies heat intolerance, Denies polydipsia and Denies polyuria Aller/Immun Denies wheezing Physical exam (Primary Care) Vital Signs: Last Vital Signs Temp 97.8 F 12/02/23 10:11 Pulse 88 12/02/23 10:11 Resp 16 12/02/23 10:11 BP 124/78 12/02/23 10:11 Pulse Ox 97 12/02/23 10:11 Oxygen Delivery Method Room Air 12/02/23 10:11 BMI result Body Mass Index 21.6 Tobacco/Smoking Status: Tobacco use Status Tobacco use date assessed 12/02/23 12/02/23 10:15 Patient Tobacco Use Status Current everyday Tobacco 12/02/23 10:06 Tobacco use type Cigarette 12/02/23 10:06 e-Cigarette/Vaping Use Never Used 12/02/23 10:06 Thrive Assessment: Date of Thrive Assessment Date Thrive assessed 01/07/23 12/02/23 10:06 Const Other: General: no acute distress and well developed Nutritional Appearance: well nourished Orientation/consciousness: patient oriented x3 HENMT Head: Yes normocephalic and Yes atraumatic Eyes General: appearance normal, both eyes and all related structures Pupils: Equal, round and reactive pupils present EOM: EOMs intact bilaterally Resp Effort & Inspection: normal respiratory effort Auscultation: clear to auscultation bilaterally Cardio Rate: regular rate Rhythm: regular rhythm Heart sounds: S1 normal heart sound present, S2 normal heart sound present, no gallops, no murmurs and no rubs GI Palpation (GI): No Abdominal aortic bruit present, Soft to palpation, nontender, No hepatosplenomegaly present and No Rebound tenderness present Auscultation: normal bowel sounds General: Yes no CVA tenderness Back/Spine/Pelvis Back: no CVA tenderness Extrem General: Yes normal to inspection, No edema and No calf tenderness Skin General: warm and dry. Normal skin color. Normal skin turgor Neuro General: patient oriented x3, gait normal and no focal neuro deficit Cranial nerves: Yes Equal, round and reactive pupils present Cognition (Neuro): normal cognition Gait exam (Neuro): Normal gait present Sensory Exam: No Sensory deficit (Neuro) Psych Appearance: grossly normal Affect: normal affect Attitude: cooperative Thought process: Normal thought process present Coding Level of Care Code Est Pt Level 3 (26076) Diagnoses Hypercholesterolemia E78.00 Laboratory tests ordered as part of a complete physical exam (CPE) Z00.00 Assessment & Plan Assessment & Plan (1) Hypercholesterolemia: Code(s): E78.00 - Pure hypercholesterolemia, unspecified Category: Medical Plan: She forgot to get lipid panel blood work done She has not been taking atorvastatin for few months Will reorder atorvastatin 10 mg every night. Advised to take as prescribed Advised to limit foods high in saturated fat and avoid foods high in trans fat Routine exercise encouraged Encouraged to get lipid panel blood work done a few days before her next visit Follow-up in 2 months for an extended physical exam or sooner with symptoms or concerns Verbalized understanding and agreed with the plan (2) Laboratory tests ordered as part of a complete physical exam (CPE): Code(s): Z00.00 - Encounter for general adult medical examination without abnormal findings Category: Medical Plan: Fasting labs ordered in preparation of a complete physical exam. Advised to fast for at least 10 hours before getting labs drawn. May drink water Verbalized understanding and agreed with treatment plan. Orders: Orders Comprehensive [place]. Panel Fast Today Z00.00 - Encounter for general adult medical examination without abnormal findings Complete Blood Count Auto Diff Today Z00.00 - Encounter for general adult medical examination without abnormal findings TSH reflex Free T4 Today Z00.00 - Encounter for general adult medical examination without abnormal findings UA CC w/rflx Micro + Cult Today Z00.00 - Encounter for general adult medical examination without abnormal findings Microalbumin, Random (w Creat) Today Z00.00 - Encounter for general adult medical examination without abnormal findings Medications: Refilled atorvastatin 10 mg PO BEDTIME 30 days 30 tabs 3RF
[2023-12-02 10:11] VITALS: BP 124/78; PULSE 88; RESP 16; TEMP 36.6; O2SAT 97; BMI 21.6
== END 2023-12-02 10:45 | disposition home or self-care (01) ==
PROVIDERS: PCP Nurse Practitioner Family; Visit Provider Nurse Practitioner Family
DX: E78.00 Pure hypercholesterolemia, unspecified (principal); Z00.00 Encounter for general adult medical examination without abnormal findings

== ENCOUNTER → 2023-12-02 10:01 | Outpatient (BNVA) | payer MEDICARE, SELFPAY | PROVIDERS: PCP Nurse Practitioner Family; Visit Provider Nurse Practitioner Family | DX: E78.00 Pure hypercholesterolemia, unspecified (principal) | CPT/HCPCS: 99212 ==

== ENCOUNTER 2024-01-29 09:01 | Outpatient (REF) | payer MEDICARE, SELFPAY ==
[2024-01-29 11:17] LABS: Appearance Urine Clear; Color Urine Yellow; Glucose Urine UA Negative (Negative); Leukocyte Esterase Urine Negative (Negative); Nitrite Urine Negative (Negative); PH 7.5 (5.0-9.0); Specific Gravity - Urine 1.015 (1.005-1.025); Urine Blood Negative (Negative); Urine Ketones Negative (Negative); Urine Protein Negative (Neg-Trace)
[2024-01-29 11:17] LABS: MANUAL DIFF FLAG NO
[2024-01-29 11:24] LABS: Basophils Absolute Auto 0.1 X10*3/uL (0.0-0.2); Basophils Percent Auto 1.1 % (0-2); Eosinophils Absolute Auto 0.3 X10*3/uL (0.0-0.4); Eosinophils Percent Auto 4.5 % (0-4); Hematocrit 45.3 % (37.0-47.0); Hemoglobin 15.2 g/dl (12.0-16.0); Imm Gran Abs Auto 0.02 X10*3/uL (0.00-0.03); Imm Gran Pct Auto 0.3 % (0.0-0.4); Lymphocytes Absolute Auto 1.9 X10*3/uL (1.2-4.9); Lymphocytes Percent Auto 28.4 % (20-40); Mean Corpuscular HGB Conc 33.6 g/dl (31.0-35.0); Mean Corpuscular Hemoglobin 34.4 pg (27.0-33.0); Mean Corpuscular Volume 102.5 fL (80.0-98.0); Mean Platelet Volume 9.5 fL (9.4-12.3); Monocytes Absolute Auto 0.5 X10*3/uL (0.1-1.2); Monocytes Percent Auto 6.9 % (2-11); Neutrophils Absolute Auto 3.9 x10*3/uL (2.0-8.3); Neutrophils Percent Auto 58.8 % (45-73); Platelet Count 270 X10*3/uL (160-400); Red Blood Count 4.42 X10*6/uL (4.20-5.50); Red Cell Distribution Width 12.7 % (11.0-16.0); White Blood Count 6.6 X10*3/uL (4.8-10.8)
[2024-01-29 12:03] LABS: Creatinine Urine 106.09 mg/dL; Microalbum/Creatinine Ratio Ur 21.6 ug/mg cr (<30)
[2024-01-29 12:20] LABS: Alanine Aminotransferase 16 U/L (0-31); Alkaline Phosphatase 87 U/L (39-117); Anion Gap 11 (12-20); Aspartate Amino Transferase 29 U/L (5-31); Bilirubin Total 0.6 mg/dL (0.0-1.0); Blood Urea Nitrogen 8 mg/dL (9-16); Calcium 9.6 mg/dL (8.4-10.2); Carbon Dioxide 30 mmol/L (22-29); Chloride 108 mmol/L (96-108); Cholesterol 180 mg/dL (<200); Estimated Glomerular Filt Rate > 60; Glucose Fasting 96 mg/dL (60-99); HDL Cholesterol 80 mg/dL (>40); LDL Cholesterol Calculated 88 mg/dL (<100); Potassium 4.5 mmol/L (3.3-5.1); Sodium 144 mmol/L (135-145); Total Protein 6.8 g/dL (6.5-8.0); Triglycerides 62 mg/dL (<150)
[2024-01-29 12:21] LABS: TSH reflex Free T4 1.19 uIU/mL (0.32-4.0)
== END 2024-01-29 09:02 | disposition home or self-care (01) ==
LOC: HO.WFDLDS 09:01
PROVIDERS: Visit Provider Nurse Practitioner Family
DX: Z00.00 Encounter for general adult medical examination without abnormal findings (principal); E78.00 Pure hypercholesterolemia, unspecified
CPT/HCPCS: 36415; 80053; 80061; 81003; 82043; 82570; 84443; 85025

== ENCOUNTER 2024-02-04 10:15 | Outpatient (AMB) | payer MEDICARE, SELFPAY ==
--- NOTE | 2024-02-04 10:25 | A.OFFPC_ITS ---
Vital Signs 02/04/24 10:34 02/04/24 12:05 Height 5 ft 9 in Weight 150 lb 6 oz BMI 22.2 BP 157/75 H 130/90 H Blood Pressure Location Rt brachial Lt brachial Position Sitting Sitting Respiration 16 Pulse 88 Pulse Source Pulse Oximeter Temp 97.5 F Temp Source Temporal Artery Scan Pulse Oximetry (%) 96 Oxygen Delivery Method Room Air Intake Visit Reasons: CPE Intake Note: patient here for CPE Supervisor Finishing Required: No Is last menstrual period known: No Post menopausal: No Patient : No Allergies No Known Allergies Allergy (Verified 02/04/24 10:44) Medication List - Last Reconciled 02/04/24 by Jimmy Tinsley CNP atorvastatin 10 mg PO BEDTIME [address]-ER 3 mg PO DAILY PRN duloxetine 120 mg PO QAM lorazepam 1 mg PO TID PRN Tobacco use date assessed: 02/04/24 Fall risk assessment: No Falls in past year Last assessed Fall Risk: 02/04/24 Dental Screening Dental Screen Date: 02/04/24 Did you have a dental visit in the last 12 months?: Yes Did you have a dental problem in the last 6 months where you did not have access to dental care?: No Was dental information given to patient?: Patient has dentist HPI HPI Comments History of Present Illness Details 68-year-old female, accompanied by her s pouse, presents for an extended physical exam. She has past medical history significant for seizure, arthritis of both hips, tobacco dependence, alcohol dependence, fatty liver, hypercholesterolemia, anxiety, and depression. She admits to taking her medications as prescribed without adverse reactions. Health Maintenance - Last eye exam was 2 years ago with [facility]. Encouraged to schedule an appointment to update her exam - Last mammogram was in May 2022: Jose Maria richter Will order a new mammogram - Last colonoscopy was done at [facility] on 12/2023: Diverticulosis, internal hemorrhoids. Repeat colonoscopy due 5 years from last - Last pap smear test was 5 years ago: [facility] peterson. She no longer performs Pap smear test - Last dexa scan was on 02/12/23: osteop enia. Will order vitamin D3 2000 units daily - Last LDCT was on 03/29/2023 - She is up-to-date on the pneumonia and shingles vaccines - Last tetanus vaccine was on 05/06/17 - She has not been vaccinated for flu but plans to get the vaccine at her pharmacy. - She smokes 4 cigarettes daily and has been smoking for several years. She drinks three shots of whiskey Saturday through Saturday and 1 beer and a shot of whiskey on Saturdays or Sundays. She denies recreational drug use Specialists - She is followed by psychiatry every 2- 3 months. Her psychiatrist manages her psychotropic medications. [facility] Medical History Hx of fracture of wrist Subdural hematoma Alcohol abuse Mesenteric artery thrombosis Elevated liver enzymes Hx of fracture of rib GERD (gastroesophageal reflux disease) Diabetes Arthritis Depression Anxiety Surgical History Hx of bilateral hip replacements History of esophagogastroduodenoscopy (EGD) H/O colonoscopy History of tonsillectomy History of tubal ligation Family History Father Alzheimers disease Mother Heart disease COPD (chronic obstructive pulmonary disease) CHF (congestive heart failure) Sister Brain tumor Social History Household Members: Spouse Housing: House Alcohol intake: current Alcohol intake frequency: a few times a week Alcohol type: beer Patient Tobacco Use Status: Current everyday Tobacco user Tobacco use type: Cigarette Cigarettes Per Day: 4 Years Smoked: 45 e-Cigarette/Vaping Use: Never Used Second Hand Smoke Exposure: No service: No Current occupational status: retired Current occupational exposures/hazards: No Sexual orientation: Unable to collect Gender identity: Unable to collect Cognitive needs: No Hearing needs: No Vision needs: No Questionnaire PHQ-9 Over the last 2 weeks, how often have you been bothered by any of the following problems? 1. Little interest or pleasure in doing things: several days 2. Feeling down, depressed, or hopeless: more than half the days 3. Trouble falling or staying asleep, or sleeping too much: nearly every day 4. Feeling tired or having little energy: more than half the days 5. Poor appetite or overeating: several days 6. Feeling bad about yourself - or that you are a failure or have let yourself or your family down: several days 7. Trouble concentrating on things, such as reading the newspaper or watching television: several days 8. Moving or speaking so slowly that other people could have noticed. Or the opposite - being so fidgety or restless that you have been moving around a lot more than usual: several days 9. Thoughts that you would be better off or of hurting yourself in some way: not at all Total score: 12 Depression Screening Interpretation: Positive Depression Screening Follow-up: Existing condition and In treatment Depression Screening Done: Yes 05679 - PHQ-9 Billing: Yes Source: Developed by Drs. Ronal Webb, Elizabeth Davis, Ryan Calvillo and colleagues, with an educational jomar from [employer] Thrive Questionnaire Date Thrive assessed: 02/04/24 I am a: Patient What is your living situation today?: I have a steady place to live Within the past 12 months, did the food you bought not last and you didn't have the money to get more?: Never true Within the past 12 months, did you worry whether your food would run out before you got money to buy more?: Never true Do you have trouble paying for medicines?: No Do you have trouble getting transportation to medical appointments?: No Do you have trouble paying your heating and electricity bill?: No Do you have trouble taking care of your child, family member or friend?: No Do you have trouble with day-to-day activities such as bathing, preparing meals, shopping, managing finances, etc.?: No Are you currently unemployed and looking for a job?: No Are you interested in more education?: No Please select the resources that you would like help with: None Currently or been in a relationship where the following occur: No concerns reported THRIVE Score: 0 AUDIT C Alcohol Use Questionnaire (AUDIT-C) 1. How often do you have a drink containing alcohol?: 4 or more times a week 2. How many drinks containing alcohol do you have on a typical day when you are drinking?: 3 or 4 3. How often do you have six or more drinks on one occasion?: Never Total Score: 5 Score Reviewed/Action Taken: Yes ABDIAS-7 AMB Questionnaire ABDIAS-7 Date ABDIAS - 7 assessed: 02/04/24 Feeling nervous, anxious, or on edge: 3 = Nearly every day Not being able to stop or control worryin = More than half the days Worrying too much about different things: 2 = More than half the days Trouble relaxin = More than half the days Being so restless that it is hard to sit still: 2 = More than half the days Becoming easily annoyed or irritable: 2 = More than half the days Feeling afraid as if something awful might happen: 1 = Several days Total ABDIAS-7 score (0-4 normal; 5-9 mild; 10-14 moderate; 15-21 severe): 14 Source: Developed by Drs. Ronal Webb, Elizabeth Davis, Ryan Calvillo and colleagues, with an educational jomar from [employer] ABDIAS-7 Assessment Billing ABDIAS-7 Assessment Tool: ABDIAS-7 Assessment 65618 Review of Systems Const Details: Denies chills, Denies fatigue, Denies fever(s), Denies headache(s) and Denies weakness HEENT Denies change in vision, Denies dizziness, Denies headache(s), Denies hearing loss, Denies nasal congestion, Denies sinus pain, Denies sinus pressure and Denies sore throat Card Denies chest pain, Denies lightheadedness, Denies dyspnea and Denies other (palpitations) Resp Denies cough, Denies dyspnea and Denies wheezing GI Denies abdominal pain, Denies melena, Denies hematochezia, Denies change in bowel habits, Denies dyspepsia and Denies nausea Denies hematuria and Denies dysuria Musc Denies abnormal gait, Denies myalgias, Denies arthralgias, Denies numbness and Denies tingling Skin/Breast Denies rash, Denies unusual bruising and Denies wounds Neuro Denies abnormal gait, Denies dizziness, Denies headache(s), Denies memory loss, Denies numbness, Denies Sensory deficit (Neuro), Denies tingling and Denies weakness Psych Denies anxiety, Denies depression and Denies memory loss Endo Denies cold intolerance, Denies fatigue, Denies heat intolerance, Denies polydipsia and Denies polyuria Andrade/Lymph Denies easy bleeding and Denies easy bruising Aller/Immun Denies wheezing Physical exam (Primary Care) Vital Signs: Last Vital Signs Temp 97.5 F 02/04/24 10:34 Pulse 88 02/04/24 10:34 Resp 16 02/04/24 10:34 BP 130/90 H 02/04/24 12:05 Pulse Ox 96 02/04/24 10:34 Oxygen Delivery Method Room Air 02/04/24 10:34 BMI result Body Mass Index 22.2 Tobacco/Smoking Status: Tobacco use Status Tobacco use date assessed 02/04/24 02/04/24 10:35 Patient Tobacco Use Status Current everyday Tobacco 02/04/24 10:27 Tobacco use type Cigarette 02/04/24 10:27 e-Cigarette/Vaping Use Never Used 02/04/24 10:27 PHQ-9: PHQ-9 Score PHQ-9: Total score 12 02/04/24 12:19 Depression Screening Interpretation: Positive Depression Screening Follow-up: Existing condition and In treatment Thrive Assessment: Date of Thrive Assessment Date Thrive assessed 02/04/24 02/04/24 10:39 Currently or been in a relationship where the following occur: No concerns reported Const Other: General: no acute distress, well developed, alert and awake Nutritional Appearance: well nourished Orientation/consciousness: patient oriented x3 HENMT Head: Yes normocephalic and Yes atraumatic Ears: hearing grossly normal bilaterally and TM's normal bilaterally General nose exam: Normal external nose present and Normal nares present Mouth: Normal oral and palatal mucosa present and moist mucous membranes Teeth and gingiva: dentition normal Throat: Yes oropharynx normal Eyes Pupils: Equal, round and reactive pupils present and Pupil accommodation reflex normal EOM: EOMs intact bilaterally Neck Neck: Yes normal visual inspection, Yes no lymphadenopathy and Yes trachea midline Thyroid: Thyroid normal Carotids: no bruits Lymphatic: no lymphadenopathy noted Chest Chest palpation & inspection: normal inspection of the chest Resp Effort & Inspection: normal respiratory effort Auscultation: clear to auscultation bilaterally Cardio Rate: regular rate Rhythm: regular rhythm Heart sounds: S1 normal heart sound present, S2 normal heart sound present, no gallops, no murmurs and no rubs Bruits: no abdominal aortic bruits and no carotid bruits GI Palpation (GI): No Abdominal aortic bruit present, Soft to palpation, nontender, No hepatosplenomegaly present and No Rebound tenderness present Auscultation: normal bowel sounds General: Yes no CVA tenderness Back/Spine/Pelvis Back: no CVA tenderness Cervical Spine: cervical ROM normal and No Cervical spine tenderness Thoracic/Lumbar Spine: thoraco-lumbar ROM normal, No pain with thoraco-lumbar ROM, No thoracic spinal tenderness and No lumbar spinal tenderness Skin General: warm and dry. Normal skin color. Normal skin turgor Lesions: no lesions Rashes: no rashes Trauma: no lacerations or abrasions Wounds: no wounds Nails: normal Neuro General: patient oriented x3, gait normal and CN's II-XI intact bilaterally Cranial nerves: Yes Equal, round and reactive pupils present Cognition (Neuro): normal cognition Gait exam (Neuro): Normal gait present Motor exam (neuro): 5/5 motor strength present throughout Sensory Exam: No Sensory deficit (Neuro) Deep tendon reflexes (DTR's): Right patellar reflex intensity grade: 2+ and Left patellar reflex intensity grade: 2+ Extrem General: Yes normal to inspection, No edema and No calf tenderness Psych Appearance: grossly normal Affect: normal affect Attitude: cooperative Thought process: Normal thought process present Coding Level of Care Code Est Pt Level 3 (49934) Est Pt Prev Care >65y(03260) Diagnoses Normal physical examination, routine Z00.00 Hypercholesterolemia E78.00 Anxiety and depression F41.9; F32.A Osteopenia M85.80 Nicotine dependence, cigarettes, uncomplicated F17.210 Alcohol dependence F10.20 Screening mammogram for breast cancer Z12.31 Additional Codes ABDIAS-7 Assessment Billing - ABDIAS-7 Assessment Tool: ABDIAS-7 Assessment 26843 ([id number]) PHQ-9 - 99384 - PHQ-9 Billing: Yes ([id number]) Assessment & Plan Assessment & Plan (1) Normal physical examination, routine: Code(s): Z00.00 - Encounter for general adult medical examination without abnormal findings Category: Medical Plan: No significant physical limitations noted. (2) Hypercholesterolemia: Code(s): E78.00 - Pure hypercholesterolemia, unspecified Category: Medical Plan: Continue current treatment regimen. ADA diet and routine exercise encouraged. Advised to fast for 10-12 hours, may drink water only, and get lipid panel blood work done 2-3 days before her next visit. Follow-up in 4 months for hypercholesterolemia or sooner with symptoms or concerns. Verbalized understanding and agreed with the plan. (3) Anxiety and depression: Code(s): F41.9 - Anxiety disorder, unspecified; F32.A - Depression, unspecified Category: Medical Plan: Continue current treatment regimen. Follow-up with psychiatrist as planned. (4) Osteopenia: Code(s): M85.80 - Other specified disorders of bone density and structure, unspecified site Category: Medical Plan: Vitamin D3 3000 units daily ordered. Advised to take as prescribed. Instructed on the risks, benefits, and potential adverse reactions of the medication. Verbalized understanding and agreed with plan. (5) Nicotine dependence, cigarettes, uncomplicated: Code(s): F17.210 - Nicotine dependence, cigarettes, uncomplicated Category: Medical Plan: Instructed on the health risks and complications of cigarette smoking and cessation encouraged. She is not ready to stop smoking and does not want medication treatment for smoking cessation at this time. Encouraged to contact her PCP if she changes her mind on medication regimen for smoking cessation. Verbalized understanding and agreed with the plan. (6) Alcohol dependence: Code(s): F10.20 - Alcohol dependence, uncomplicated Category: Medical Plan: Instructed on the health risks and complications of excessive alcohol consumption and encouraged to limit or stop drinking alcohol. She admits that she needs to limit her alcohol intake. She does not want to be referred to addiction medicine at this time. Encouraged to contact her PCP if she changes her mind on referral to addiction medicine. Verbalized understanding and agreed with the plan. (7) Screening mammogram for breast cancer: Code(s): Z12.31 - Encounter for screening mammogram for malignant neoplasm of breast Category: Medical Plan: Mammogram ordered. Orders: Orders MM screening mammo BI 02/04/24 Z12.31 - Encounter for screening mammogram for malignant neoplasm of breast Lipid Panel 4 Months E78.00 - Pure hypercholesterolemia, unspecified Medications: New cholecalciferol (vitamin D3) 75 mcg PO DAILY 90 days 90 tabs 3RF
[2024-02-04 10:34] VITALS: BP 157/75; PULSE 88; RESP 16; TEMP 36.4; O2SAT 96; BMI 22.2
[2024-02-04 12:05] VITALS: BP 130/90
== END 2024-02-04 11:12 | disposition home or self-care (01) ==
PROVIDERS: PCP Nurse Practitioner Family; Visit Provider Nurse Practitioner Family
DX: Z00.00 Encounter for general adult medical examination without abnormal findings (principal); M85.80 Other specified disorders of bone density and structure, unspecified site; F10.20 Alcohol dependence, uncomplicated; E78.00 Pure hypercholesterolemia, unspecified; F41.9 Anxiety disorder, unspecified; F32.A Depression, unspecified; F17.210 Nicotine dependence, cigarettes, uncomplicated; Z12.31 Encounter for screening mammogram for malignant neoplasm of breast

== ENCOUNTER → 2024-02-04 10:15 | Outpatient (BNVA) | payer MEDICARE, SELFPAY | PROVIDERS: PCP Nurse Practitioner Family; Visit Provider Nurse Practitioner Family | DX: Z00.00 Encounter for general adult medical examination without abnormal findings (principal); E78.00 Pure hypercholesterolemia, unspecified; F41.9 Anxiety disorder, unspecified; F32.A Depression, unspecified; M85.80 Other specified disorders of bone density and structure, unspecified site; F10.20 Alcohol dependence, uncomplicated; F17.210 Nicotine dependence, cigarettes, uncomplicated; Z71.6 Tobacco abuse counseling | CPT/HCPCS: 96127; 99212; 99397 ==

== ENCOUNTER 2024-04-23 10:32 | Outpatient (REF) | payer MEDICARE, SELFPAY ==
--- NOTE | ~2024-04-23 | CT_ITS ---
CLINICAL HISTORY: F17.210 - Nicotine dependence, cigarettes, uncomplicated CT lung cancer screening (LDCT) Comparison: 03/29/2023 Technique: Axial CT images of the chest using low-dose technique. Referring provider counseled the patient on shared decision-making for LDCT screening. Additional counseling was provided on smoking cessation. Effective radiation dose total: DLP 32.3 mGycm, CTDIvol 0.9 mGy. Findings: Lung: There are no new solid or semi solid lesions. There are chronic changes in the right lower lobe. Coronary artery calcifications: Mild Limited upper abdomen: Unremarkable Other: None Impression: Category 2: Benign appearance or behavior, continue annual screening Category 1: Normal; continue annual screening Category 2: Benign appearance or behavior, continue annual screening Category 3: Probably benign, [address] recommended Category 4A: Suspicious, [address] recommended; may consider PET/CT Category 4B: Suspicious, Additional diagnostics and/or tissue sampling recommended Category 4X: Suspicious, Additional diagnostics and/or tissue sampling recommended Category 0: Recalls (incomplete screen due to Incomplete coverage, Noise, Respiratory motion, Expiration, Obscured by acute abnormality) This document has been electronically signed by: Jonnie Macedo MD on 04/23/2024 18:21:55
--- OUTSIDE RECORDS SUMMARY | 2024-04-23 12:20 | XMS_ITS | Patient Health Record ---
Author Organization [facility] Address [address] [place] [address] Care Team Providers Care Aerodynamics Engineer Name Role Phone Jimmy Tinsley N.P. Primary Care Provider Ronal Durant [phone] ALLERGIES No Known Allergies REASON FOR REFERRAL No Information MEDICATIONS Medication SIG (Take, Route, Frequency, Duration) Notes Start Date End Date Status Entocort EC 3 MG 3 pills QD for 2mont hs, then 2 pills QD Orally QD 05/02/2018 Not-Ta soraida DULoxetine HCl 60 MG 2 capsule Orally Once a day Active LORazepam 1 MG 1 tablet Orally 3 ti mes a day/prn Active IMMUNIZATIONS Vaccine Route Administration Date Status Comme nts Influenza Unknown 11/25/2017 Administered Influenza Unknown 11/05/2018 Administered Influenza Unknown 11/25/2021 Administered SOCIAL HISTORY Tobacco Use: Social History Observation Description Date Details (start date - stop date) Current Smoker NA - NA Sex Assigned At : Social History Observation Description Sex Assigned At Unknown Tobacco Use/Smoking Question Answer Notes Patient is a current smoker How often do you smoke cigarettes? every day How many cigarettes a day do you smoke? 5 or les s How soon after you wake up d o you smoke your first cigarette? 31-60 minutes Are you interested in quitting? Thinking about q uitting Alcohol Screen Question Answer Notes Did you have a drink contain ing alcohol in the past year? Yes How often did you have a dri nk containing alcohol in the past year? 2 to 3 times a week (3 points) How many drinks did you have on a typical day when you were drinking in the past year? 1 or 2 drinks (0 point) How often did you have 6 or more drinks on one occasion in the past year? Never (0 point) Points 3 Interpretation Positive PROBLEMS Problem Type ICD Code Onset Dates Problem Status W/U Status Risk SNOMED Code Notes Problem Colon cancer screening (Z12.11) Active confirmed Colon can cer screening (914934821) Problem History of adenomatous polyp of colon (Z86.010) Active confirmed History o f adenomatous polyp of colon (209806727) Problem Personal history of colonic polyps (Z86.010) Active confirmed History of polyp of colon (situation) (769136443) Problem Encounter for other preprocedural examination (Z01.818) Active confirmed Pre-procedure evaluation check (500992035) Problem Weight loss (R63.4) Active confirmed 89 858525 Problem 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) Active confirmed Disorder due to alcohol abuse (66992500520613 7) Problem Diverticulosis of large intestine without perforation or abscess without bleeding (K57.30) Active confirmed Diverticul ar disease of colon (059402635) Problem Nausea (R11.0) Active confirmed 2599886 07 Problem Gastroesophageal reflux disease without esophagitis (K21.9) Active confirmed 492123807 Problem Elevated liver enzymes (R74.8) Active confirmed 576519322 Problem Alcoholic liver disease (K70.9) Active confirmed 18281484 Problem Diarrhea, unspecified type (R19.7) Active confirmed 33069198 Problem Collagenous colitis (K52.831) Active confirmed 35577597 Problem Abdominal pain, acute, generalized (R10.84) Active confirmed Generalized abdominal pain (991469311) Problem Alcoholism (F10.20) Active confirmed 72 14251 VITAL SIGNS Blood pressure diastolic 00 mm Hg 08/06/2023 Height 69 in 08/06/2023 Blood pressure systolic 00 mm Hg 08/06/2023 Weight 148 lbs 08/06/2023 BMI 21.85 kg/m2 08/06/2023 Encounters Encounter Location Date Provider Diagnosis [facility] [address] [place] [id number] 11/06/2023 Ronal Abraham Colon cancer screeni ng Z12.11 ; Personal history of colonic polyps Z86.010 ; Diverticulosis of large intestine without perforation or abscess without bleeding K57.30 and Other hemorrhoids K64.8 [facility] [address] [place] [address] 08/06/2023 Ronal Abraham History of adenomato us polyp of colon Z86.010 ; Alcohol abuse with other alcohol-induced disorder F10.188 ; Colon cancer screening Z12.11 ; Encounter for other preprocedural examination Z01.818 and Abdominal pain, acute, generalized R10.84 ASSESSMENTS Encounter Date Diagnosis Assessment Notes Treatment Notes Treatment Clinical Notes 11/06/2023 Colon cancer screening (ICD-10 - Z12.11) 11/06/2023 Personal history of colonic polyps (ICD-10 - Z86.010) 08/06/2023 History of adenomatous polyp of colon (ICD-10 - Z86.010) 08/06/2023 Alcohol abuse with other alcohol-induced disorder (ICD-10 - F10.188) 11/06/2023 Diverticulosis of large intestine without perforation or abscess without bleeding (ICD-10 - K57.30) 08/06/2023 Colon cancer screening (ICD-10 - Z12.11) 11/06/2023 Other hemorrhoids (ICD-10 - K64.8) 08/06/2023 Encounter for other preprocedural examination (ICD-10 - Z01.818) 08/06/2023 Abdominal pain, acute, generalized (ICD-10 - R10.84) PLAN OF TREATMENT Pending Test Test Name Order Date LIVER PROFILE 05/01/2018 IRON + IBC (FE) 05/01/2018 FERRITIN 05/01/2018 VITAMIN B12 AND FOLATE 05/01/2018 HEPATITIS B, C PROFILE 05/01/2018 [id number] (A1A) 05/01/2018 MITOCHONDRIAL AB 05/01/2018 SMOOTH MUSCLE ANTIBODIES 05/01/2018 GIARDIA AG, STOOL EIA 2018 OVA & PARASITES (O&P) 2018 CT ABD & PELVIS WITH CONTRAST 2018 FLUOR. ANTINUCLEAR AB SCREEN (ELOINA) 08/2018 HEPATITIS A ANTIBODY-IGG 05/01/2018 Future Test Test Name Order Date COLONOSCOPY 11/27/2012 UPPER GI ENDOSCOPY 2018 COLONOSCOPY 2018 COLONOSCOPY 08/06/2023 Insurance Providers Payer Name Payer Address Payer Phone Subscriber Number Group Number Insured Name Patient Relationship to Insured Coverage Start Date Coverage End Date MEDICARE OF [place] [address] [place] [address] [phone] [id number] JOANNE HADDAD Self - patient is the insured [facility] SUPPLEMENTAL PLAN [address] [place] [address] [phone] [id number] JOANNE HADDAD Self - patient is the insured MEDICAL (GENERAL) HISTORY Medical History History ICD Code Anxiety Depression Denies [place],DM,CVA,Lung disease,renal dise ase Colonoscopy in 03/2006 with r emoval of 3 small tubular adenomas; colonoscopy in 01/2013 neg except for a hyperplastic polyp Arthritis-farzad. left hip NIDDM-diet controlled EGD 04/2018-gastritis with bi opsies negative for H. pylori, normal duodenal biopsies, and endoscopic changes of GERD. 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 Cabello from vascular surgery who did not think any further treatment nor workup was needed given what appeared to be asymptomatic and chronic changes Alcohol abuse Subdural hematoma in relation to a fall in 2019 as below Fractured hand/wrist in relation to a fa ll in 2018 Surgical History Surgery Date(Month/Year) Tubal ligation Tonsillectomy Subdural hematoma after a fall in summer 2018--in ICU and then rehab Bilateral hip replacements
--- OUTSIDE RECORDS SUMMARY | 2024-04-23 12:20 | XMS_ITS ---
Author Organization [facility] Address [address] [place] [address] Care Team Providers Care Executive Sales Manager Name Role Phone Jimmy Tinsley N.P. Primary Care Provider Ronal Durant [phone] ALLERGIES No Known Allergies REASON FOR VISIT Patient presents today for a screening colonoscopy MEDICATIONS Medication SIG (Take, Route, Frequency, Duration) Notes Start Date End Date Status Entocort EC 3 MG 3 pills QD for 2mont hs, then 2 pills QD Orally QD 05/02/2018 Not-Ta soraida DULoxetine HCl 60 MG 2 capsule Orally Once a day Active LORazepam 1 MG 1 tablet Orally 3 ti mes a day/prn Active SOCIAL HISTORY Tobacco Use: Social History Observation [...] W/U Status Risk SNOMED Code Notes Problem History of adenomatous polyp of colon (Z86.010) Active confirmed History of adenomatous polyp of colon (471859226) Problem Colon cancer screening (Z12.11) Active confirmed Colon cancer screening (825410909) Problem Encounter for other preprocedural examination (Z01.818) Active confirmed Pre-procedure evaluation check (392554523) Problem 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) Active confirmed Disorder due to alcohol abuse (74628992409084 7) Problem Abdominal pain, acute, generalized (R10.84) Active confirmed Generalized abdominal pain (702312598) VITAL SIGNS Blood pressure systolic 00 mm Hg 08/06/19 24 Blood pressure diastolic 00 mm Hg 024 Height 69 in 08/06/2023 Weight 148 lbs 08/06/2023 BMI 21.85 kg/m2 08/06/2023 Encounters Encounter Location Date Provider Diagnosis [facility] [address] [place] [address] 08/06/2023 Ronal Abraham History of adenomato us polyp of colon Z86.010 ; Alcohol abuse with other alcohol-induced disorder F10.188 ; Colon cancer screening Z12.11 ; Encounter for other preprocedural examination Z01.818 and Abdominal pain, acute, generalized R10.84 ASSESSMENTS Encounter Date Diagnosis Assessment Notes Treatment Notes Treatment Clinical Notes 08/06/2023 History of adenomatous polyp of colon (ICD-10 - Z86.010) 08/06/2023 Alcohol abuse with other alcohol-induced disorder (ICD-10 - F10.188) 08/06/2023 Colon cancer screening (ICD-10 - Z12.11) 08/06/2023 Encounter for other preprocedural examination (ICD-10 - Z01.818) 08/06/2023 Abdominal pain, acute, generalized (ICD-10 - R10.84) PLAN OF TREATMENT Future Test Test Name Order Date COLONOSCOPY 08/06/2023 Next Appt Details Follow Up: prn, Reason: Progress Notes * Examination Category Sub-Category Detail Notes General Examination GENERAL APPEARANCE: pleasant , alert female in NAD EYES: sclera non-icteric NECK/THYROID: no cervical lymphade nopathy, neck supple HEART: S1, S2 normal LUNGS: clear to auscultatio n bilaterally ABDOMEN: normal bowel sounds, no guarding or rigidity, no hepatosplenomegaly, no masses palpable, soft, nontender, nondistended. NEUROLOGIC: alert and oriented SKIN: nonjaundiced, no spi nisreen angiomata. ORAL CAVITY: mucosa moist
--- OUTSIDE RECORDS SUMMARY | 2024-04-23 12:20 | XMS_ITS ---
Author Organization [facility] Address [address] [place] [address] Care Team Providers Care Anchorman Name Role Phone Jimmy Tinsley N.P. Primary Care Provider Ronal Durant [phone] REASON FOR VISIT screening,hx polyps PROBLEMS Problem Type ICD Code Onset Dates Problem Status W/U Status Risk SNOMED Code Notes Problem Personal history of colonic polyps (Z86.010) Active confirmed History of polyp of colon (situation) (693408299) Problem Diverticulosis of large intestine without perforation or abscess without bleeding (K57.30) Active confirmed Diverticul ar disease of colon (757837075) Encounters Encounter Location Date Provider Diagnosis [facility] [address] [place], [place] [id number] 11/06/2023 Ronal Abraham Colon cancer scree rhina Z12.11 ; Personal history of colonic polyps Z86.010 ; Diverticulosis of large intestine without perforation or abscess without bleeding K57.30 and Other hemorrhoids K64.8 ASSESSMENTS Encounter Date Diagnosis Assessment Notes Treatment Notes Treatment Clinical Notes 11/06/2023 Colon cancer screening (ICD-10 - Z12.11) 11/06/2023 Personal history of colonic polyps (ICD-10 - Z86.010) 11/06/2023 Diverticulosis of large intestine without perforation or abscess without bleeding (ICD-10 - K57.30) 11/06/2023 Other hemorrhoids (ICD-10 - K64.8) PLAN OF TREATMENT No Information
== END 2024-04-23 10:33 | disposition home or self-care (01) ==
LOC: HO.CT 10:32
PROVIDERS: PCP Nurse Practitioner Family; Visit Provider Physician Assistant Medical
DX: Z12.2 Encounter for screening for malignant neoplasm of respiratory organs (principal); F17.210 Nicotine dependence, cigarettes, uncomplicated
CPT/HCPCS: 71271

== ENCOUNTER → 2024-04-23 10:33 | Outpatient (BNV) | payer MEDICARE, SELFPAY | PROVIDERS: PCP Nurse Practitioner Family; Visit Provider Specialist | DX: F17.210 Nicotine dependence, cigarettes, uncomplicated (principal) | CPT/HCPCS: 71271 ==

== ENCOUNTER 2024-04-29 09:22 | Outpatient (REF) | payer MEDICARE, SELFPAY ==
--- OUTSIDE RECORDS SUMMARY | 2024-04-29 10:27 | XMS_ITS | Patient Health Record ---
Author Organization [facility] Address [address] [place] [address] Care Team Providers Care Looping Machine Operator Name Role Phone Jimmy Tinsley N.P. Primary Care Provider Ronal Durant [phone] Allergies No Known Allergies Reason For Referral No Information Medications Medication SIG (Take, Route, Frequency, Duration) Notes Start Date End Date Status Entocort EC 3 MG 3 pills QD for 2mont hs, then 2 pills QD Orally QD 05/02/2018 Not-Ta soraida DULoxetine HCl 60 MG 2 capsule Orally Once a day Active LORazepam 1 MG 1 tablet Orally 3 ti mes a day/prn Active Immunizations Vaccine Route Administration Date Status Comme nts Influenza Unknown 11/25/2017 Administered Influenza Unknown 11/05/2018 Administered Influenza Unknown 11/25/2021 Administered Social History Tobacco Use: Social History Observation Description Date Details (start date - stop date) Current Smoker NA - NA Tobacco Use/Smoking Question Answer Notes Patient is [...] Never (0 point) Points 3 Interpretation Positive Section Notes: Smoker; 2 drinks about 3 anabel es/week Smoker; At least 2 drinks da eugenia, and sometimes more during the weekends Smoker; At least 2 drinks da eugenia, and sometimes more during the weekends Smoker; Alcohol abuse Smoker; Alcohol abuse Smoker; Alcohol abuse in the past but having three drinks or nips per day as of the 07/2023 OV Problems Problem Type SNOMED Code ICD Code Onset Dates Problem Status W/U Status Risk Notes Problem Colon cancer screening (920828112) Colon cancer screening (Z12.11) Active confirmed Problem History of adenomatous polyp of colon (790907530) History of adenomatous polyp of colon (Z86.010) Active confirmed Problem History of polyp of colon (situation) (676713034) Personal history of colonic polyps (Z86.010) Active confirmed Problem Pre-procedure evaluation check (225324690) Encounter for other preprocedural examination (Z01.818) Active confirmed Problem 52426989 Weight loss (R63.4) Active confirmed Problem Disorder due to alcohol abuse (64366662814987 7) 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) Active confirmed Problem Diverticular disease of colon (814208081) Diverticulosis of large intestine without perforation or abscess without bleeding (K57.30) Active confirmed Problem 639165100 Nausea (R11.0) Active confirmed Problem 095098458 Gastroesophageal reflux disease without esophagitis (K21.9) Active confirmed Problem 447253533 Elevated liver enzymes (R74.8) Active confirmed Problem 56588940 Alcoholic liver disease (K70.9) Active confirmed Problem 69566845 Diarrhea, unspecified type (R19.7) Active confirmed Problem 09367222 Collagenous coli tis (K52.831) Active confirmed Problem Generalized abdominal pain (236552618) Abdominal pain, acute, generalized (R10.84) Active confirmed Problem 9137000 Alcoholism (F10.20) Active confirmed Vital Signs Blood pressure diastolic 00 mm Hg 08/06/2023 Height 69 in 08/06/2023 Blood pressure systolic 00 mm Hg 08/06/2023 Weight 148 lbs 08/06/2023 BMI 21.85 kg/m2 08/06/2023 Encounters Encounter Location Date Provider Diagnosis [facility] [address] [place] [address], [place] [id number] 11/06/2023 Ronal Abraham Colon cancer screeni ng Z12.11 ; Personal history of colonic polyps Z86.010 ; Diverticulosis of large intestine without perforation or abscess without bleeding K57.30 and Other hemorrhoids K64.8 [facility] [address] [place] [address] 08/06/2023 Ronal Abraham History of adenomato us polyp of colon Z86.010 ; Alcohol abuse with other alcohol-induced disorder F10.188 ; Colon cancer screening Z12.11 ; Encounter for other preprocedural examination Z01.818 and Abdominal pain, acute, generalized R10.84 Assessments Encounter Date Diagnosis (ICD Code) Assessment Notes Treatment Notes Treatment Clinical Notes Section Notes 11/06/2023 Colon cancer screening (ICD-10 - Z12.11) 11/06/2023 Personal history of colonic polyps (ICD-10 - Z86.010) 08/06/2023 History of adenomatous polyp of colon (ICD-10 - Z86.010) Overall, Joanne appears remarkably well considering her long-standing history of alcohol abuse and her current continued use of some alcohol and tobacco. We did have a discussion today regarding her need to abstain completely from alcohol although she does not want to nor does she think she is able to do that. Despite that she is not having any active nor worrisome GI complaints at the present time. I did recommend a followup colonoscopy for further screening given her prior history of tubular adenomas and last colonoscopy being over 5 years ago. We did review the rationale for that in regard to colon cancer prevention. Full consent was obtained for this, including risks of bleeding and perforation. The procedure will be done with monitored anesthesia care. Joanne and her were comfortable with this plan. Thank you again for allowing me to participate in Joanne's care. I shall continue to keep you advised of her progress. 08/06/2023 Alcohol abuse with other alcohol-induced disorder (ICD-10 - F10.188) Overall, Joanne appears remarkably well considering her long-standing history of alcohol abuse and her current continued use of some alcohol and tobacco. We did have a discussion today regarding her need to abstain completely from alcohol although she does not want to nor does she think she is able to do that. Despite that she is not having any active nor worrisome GI complaints at the present time. I did recommend a followup colonoscopy for further screening given her prior history of tubular adenomas and last colonoscopy being over 5 years ago. We did review the rationale for that in regard to colon cancer prevention. Full consent was obtained for this, including risks of bleeding and perforation. The procedure will be done with monitored anesthesia care. Joanne and her were comfortable with this plan. Thank you again for allowing me to participate in Joanne's care. I shall continue to keep you advised of her progress. 11/06/2023 Diverticulosis of large intestine without perforation or abscess without bleeding (ICD-10 - K57.30) 08/06/2023 Colon cancer screening (ICD-10 - Z12.11) Overall, Joanne appears remarkably well considering her long-standing history of alcohol abuse and her current continued use of some alcohol and tobacco. We did have a discussion today regarding her need to abstain completely from alcohol although she does not want to nor does she think she is able to do that. Despite that she is not having any active nor worrisome GI complaints at the present time. I did recommend a followup colonoscopy for further screening given her prior history of tubular adenomas and last colonoscopy being over 5 years ago. We did review the rationale for that in regard to colon cancer prevention. Full consent was obtained for this, including risks of bleeding and perforation. The procedure will be done with monitored anesthesia care. Joanne and her were comfortable with this plan. Thank you again for allowing me to participate in Joanne's care. I shall continue to keep you advised of her progress. 11/06/2023 Other hemorrhoids (ICD-10 - K64.8) 08/06/2023 Encounter for other preprocedural examination (ICD-10 - Z01.818) Overall, Joanne appears remarkably well considering her long-standing history of alcohol abuse and her current continued use of some alcohol and tobacco. We did have a discussion today regarding her need to abstain completely from alcohol although she does not want to nor does she think she is able to do that. Despite that she is not having any active nor worrisome GI complaints at the present time. I did recommend a followup colonoscopy for further screening given her prior history of tubular adenomas and last colonoscopy being over 5 years ago. We did review the rationale for that in regard to colon cancer prevention. Full consent was obtained for this, including risks of bleeding and perforation. The procedure will be done with monitored anesthesia care. Joanne and her were comfortable with this plan. Thank you again for allowing me to participate in Joanne's care. I shall continue to keep you advised of her progress. 08/06/2023 Abdominal pain, acute, generalized (ICD-10 - R10.84) Overall, Joanne appears remarkably well considering her long-standing history of alcohol abuse and her current continued use of some alcohol and tobacco. We did have a discussion today regarding her need to abstain completely from alcohol although she does not want to nor does she think she is able to do that. Despite that she is not having any active nor worrisome GI complaints at the present time. I did recommend a followup colonoscopy for further screening given her prior history of tubular adenomas and last colonoscopy being over 5 years ago. We did review the rationale for that in regard to colon cancer prevention. Full consent was obtained for this, including risks of bleeding and perforation. The procedure will be done with monitored anesthesia care. Joanne and her were comfortable with this plan. Thank you again for allowing me to participate in Joanne's care. I shall continue to keep you advised of her progress. Plan Of Treatment Pending Test Test Name Order Date LIVER PROFILE 05/01/2018 IRON + IBC (FE) 05/01/2018 FERRITIN 05/01/2018 VITAMIN B12 AND FOLATE 05/01/2018 HEPATITIS B, C PROFILE 05/01/2018 [id number] (A1A) 05/01/2018 MITOCHONDRIAL AB 05/01/2018 SMOOTH MUSCLE [...] Start Date Coverage End Date MEDICARE OF [facility] [address] [id number] ZIJOANNE RIVERO Self - patient is the insured [facility] SUPPLEMENTAL PLAN [address] [place] [id number] JOANNE HADDAD Self - patient is the insured Medical (General) History Medical History History ICD Code Anxiety Depression Denies [place],DM,CVA,Lung disease,renal dise ase Colonoscopy in 03/2006 with r emoval of 3 small tubular adenomas; colonoscopy in 01/2013 neg except for a hyperplastic polyp Arthritis-farzad. left hip NIDDM-diet controlled EGD 04/2018-gastritis with bi opsies negative for H. pylori, normal duodenal biopsies, and endoscopic changes of GERD. Collagenous colitis-colonoscopy in --no polyps Fx ribs in 06/2018 from a [...] in relation to a fa ll in 2019 Surgical History Surgery Date(Month/Year) Tubal ligation Tonsillectomy Subdural hematoma after a fall in summer 2018--in ICU and then rehab Bilateral hip replacements
--- OUTSIDE RECORDS SUMMARY | 2024-04-29 10:27 | XMS_ITS ---
Author Organization [facility] Address [address] [place] [address] Care Team Providers Care Material Handling Equipment Stevedore Name Role Phone Jimmy Tinsley N.P. Primary Care Provider Ronal Durant [phone] REASON FOR VISIT screening,hx polyps Problems Problem Type SNOMED Code ICD Code Onset Dates Problem Status W/U Status Risk Notes Problem History of polyp of colon (situation) (751709518) Personal history of colonic polyps (Z86.010) Active confirmed Problem Diverticular disease of colon (552019710) Diverticulosis of large intestine without perforation or abscess without bleeding (K57.30) Active confirmed Encounters Encounter Location Date Provider Diagnosis [facility] Outpatient [address] [place] [address] [phone] 11/06/2023 Ronal Abraham Colon cancer scree rhina [...] Notes * DEVI HADDADOB:1955 (69 yo F)Acc No.[id number]:11/06/2023 COLON WITH MAC Patient:JOANNE RUSHING Provider:?Ronal Abraham MD :1955???Age:68 Y???Sex:Female D ate:11/06/2023 Address:[address] [place], [place] [id number] Pcp:Jimmy Tinsley NAlmaz. Subjective: * Chief Complaints: * ???1. Screening,hx polyps. * Medical History:? Objective: * Vitals:? Assessment: * Assessment: 1.?Colon cancer screening - Z12.11 (Primary)???2.?Personal history of colonic polyps - Z86.010???3.?Diverticulosis of large intestine without perforation or abscess without bleeding - K57.30???4.?Other hemorrhoids - K64.8??? Plan: * Treatment: * Procedure Codes:?G0105 COLOR EC CANCR SCR; COLNSCPY HI RISK, 0529F INTRVL 3+YRS PTS CLNSCP DOCD, 0528F RCMND FLW-UP 10 YRS DOCD, Modifiers: 1P * * The named appointment provid er may or may not be the originator of this progress note, and it is not deemed complete until electronically signed by the appointment provider. Sign off status: Pending * Provider:?Ronal Abraham MD Date:? 024 Generated for Armaan brown/Radha/eThaleysmitting on:?2024 10:27 AM EST
--- OUTSIDE RECORDS SUMMARY | 2024-04-29 10:27 | XMS_ITS ---
Author Organization [facility] Address [address] [place] [address] Care Team Providers Care Syruper Name Role Phone Jimmy Tinsley N.P. Primary Care Provider Ronal Durant [phone] Allergies No Known Allergies REASON FOR VISIT Patient presents today for a screening colonoscopy Medications Medication SIG (Take, Route, Frequency, Duration) Notes Start Date End Date Status Entocort EC 3 MG 3 pills QD for 2mont hs, then 2 pills QD Orally QD 05/02/2018 Not-Ta soraida DULoxetine HCl 60 MG 2 capsule Orally Once a day Active LORazepam 1 MG 1 tablet Orally 3 ti mes a day/prn Active Social History Tobacco Use: Social History Observation [...] Points 3 Interpretation Positive Section Notes: Smoker; Alcohol abuse in the past but having three drinks or nips per day as of the 07/2023 OV Problems Problem Type SNOMED Code ICD Code Onset Dates Problem Status W/U Status Risk Notes Problem History of adenomatous polyp of colon (446535164) History of adenomatous polyp of colon (Z86.010) Active confirmed Problem Colon cancer screening (606539943) Colon cancer screening (Z12.11) Active confirmed Problem Pre-procedure evaluation check (748738275) Encounter for other preprocedural examination (Z01.818) Active confirmed Problem Disorder due to alcohol abuse (75072079941739 7) 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) Active confirmed Problem Generalized abdominal pain (828782291) Abdominal pain, acute, generalized (R10.84) Active confirmed Vital Signs Blood pressure systolic 00 mm Hg 08/06/19 24 Blood pressure diastolic 00 mm Hg 024 Height 69 in 08/06/2023 Weight 148 lbs 08/06/2023 BMI 21.85 kg/m2 08/06/2023 Encounters Encounter Location Date Provider Diagnosis [facility] [address] [place] [id number] 08/06/2023 Ronal Abraham History of adenomato us polyp of colon Z86.010 ; Alcohol abuse with other alcohol-induced disorder F10.188 ; Colon cancer screening Z12.11 ; Encounter for other preprocedural examination Z01.818 and Abdominal pain, acute, generalized R10.84 Assessments Encounter Date Diagnosis (ICD Code) Assessment Notes Treatment Notes Treatment Clinical Notes Section Notes 08/06/2023 History of adenomatous polyp of [...] keep you advised of her progress. 08/06/2023 Colon cancer screening (ICD-10 - Z12.11) [...] keep you advised of her progress. 08/06/2023 Encounter for other preprocedural examination (ICD-10 [...] advised of her progress. Plan Of Treatment Future Test Test Name Order Date COLONOSCOPY 08/06/2023 Next Appt Details Follow Up: prn, Reason: Progress Notes * SIMON HADDADNEDOB:1955 (68 yo F)Acc No.[id number]:08/06/2023 Progress Notes Patient:?JOANNE HADDAD Provider:?Ronal Abraham MD :1955???Age:68 Y???Sex:Female D ate:08/06/2023 Address:[address] [place], [place] [id number] Pcp:Jimmy Tinsley N.Marybeth. Subjective: * Chief Complaints: * ???Patient presents today fo r a screening colonoscopy * HPI: ???incontinence:? I saw Joanne in followup today in regard to her personal history of tubular adenomas of the colon, need for colorectal cancer screening, and alcohol abuse with associated problems including pancreatitis. She was accompanied by her . ?I last saw Joanne in 2021 at which time we had reviewed her history of alcohol abuse and associated problems including abdominal pain, pancreatitis, and poor nutritional intake with associated weight loss. Her last colonoscopy in April of 2018 was negative for polyps although she does have a previous history of tubular adenomas removed on prior exams. She has unfortunately continued to use alcohol although now reports that she is only having about 3 nips per day. She apparently has cut down significantly since a January hospitalization at [facility] for abdominal pain. ?She reports that she is eating well and her weight has been stable. She has gained about 20 pounds since she was here in 2021. She currently denies any abdominal pain, signs of jaundice, nausea, vomiting, significant heartburn, nor dysphagia. She reports her bowel movements have been fairly regular and without any significant diarrhea, hematochezia, nor melena. ?Laboratories in January 2023 revealed a normal CBC except for MCV of 103. She also had a CT scan of her abdomen this past May which describes a normal appearing liver other than some cysts, normal pancreas, normal spleen, and no report of any ascites. * ROS:?General/Constitutional:?Change in appetite?Normal.?Chills?denies.?Fatigue?Admits.?Ophthalmologic:?Patient denies? Negative..?ENT:?Patient denies?Negative..?Respiratory:?Patient denies?No coughing/hemoptysis..?Cardiovascular:?Patient denies? No chest pain/orthopnea..?Gastrointestinal:?Comments?See HPI for details.?Genitourinary:?Patient denies? No dysuria/hematuria..?Musculoskeletal:?Patient complaining of? Arthritis in hips, lower back, and knees.?Skin:?Patient denies?No rash/pruritus..?Neurologic:?Patient denies? No headaches/seizures..?Psychiatric:?Comments? Per PMH.? * Medical History:? * Surgical History:?Tubal liga tion Tonsillectomy Subdural hematoma after a fall in summer 2018--in ICU and then rehab Bilateral hip replacements * Hospitalization/Major Diagno stic Procedure:?No Hospitalization History. * Family History:?Father: dece ased.?Mother: .? No colorectal cancer or liver disease. * Social History:?Tobacco Use:?Tobacco Use/Smoking?Patient is a?current smoker,?How often do you smoke cigarettes??every day,?How many cigarettes a day do you smoke??5 or less,?How soon after you wake up do you smoke your first cigarette??31-60 minutes,?Are you interested in quitting??Thinking about quitting.?Drugs/Alcohol:?Alcohol Screen?Did you have a drink containing alcohol in the past year??Yes,?How often did you have a drink containing alcohol in the past year??2 to 3 times a week (3 points),?How many drinks did you have on a typical day when you were drinking in the past year??1 or 2 drinks (0 point),?How often did you have 6 or more drinks on one occasion in the past year??Never (0 point),?Points?3,?Interpretation?Positive.?Miscellaneous:?Marital status: . Occupation: unemployed. ???Smoker; Alcohol abuse in the past but having three drinks or nips per day as of the 07/2023 OV. * Medications:?TakingLORazepam 1 MG Tablet 1 tablet Orally 3 times a day/prnDULoxetine HCl 60 MG Capsule Delayed Release Particles 2 capsule Orally Once a dayTaking LORazepam 1 MG Tablet 1 tablet Orally 3 times a day/prnTaking DULoxetine HCl 60 MG Capsule Delayed Release Particles 2 capsule Orally Once a dayNot- Taking/PRNEntocort EC 3 MG Capsule Delayed Release Particles 3 pills QD for 2months, then 2 pills QD Orally QDMedication List reviewed and reconciled with the patientNot-Taking/PRN Entocort EC 3 MG Capsule Delayed Release Particles 3 pills QD for 2months, then 2 pills QD Orally QDMedication List reviewed and reconciled with the patient * Allergies:?N.K.D.A.yes[Aller gies Verified] Objective: * Vitals:?Wt: 148 lbs, Ht: 69 in, BMI:21.85 Index, BP: 00/00 mm Hg. * Examination: ???General Examination: ?GENERAL APPEARANCE:?pleasant, alert female in NAD.?EYES:?sclera non-icteric.?ORAL CAVITY:?mucosa moist.?NECK/THYROID:?no cervical lymphadenopathy, neck supple.?SKIN:?nonjaundiced, no spider angiomata..?HEART:?S1, S2 normal.?LUNGS:?clear to auscultation bilaterally.?ABDOMEN:?normal bowel sounds, no guarding or rigidity, no hepatosplenomegaly, no masses palpable, soft, nontender, nondistended..?NEUROLOGIC:?alert and oriented.? Assessment: * Assessment: 1.?Alcohol abuse with other alcohol-induced disorder - F10.188 (Primary)?2.?History of adenomatous polyp of colon - Z86.010?3.?Colon cancer screening - Z12.11?4.?Encounter for other preprocedural examination - Z01.818?5.?Abdominal pain, acute, generalized - R10.84? Overall, Joanne appears remar kably well considering her long-standing history of alcohol [...] to keep you advised of her progress. Plan: * Treatment: 2.?Colon cancer screening?Procedure: COLONOSCOPY (Ordered for 08/06/2023)* with MACsched for 11/06/23 at 11:30 ammiralax * Procedure Codes:?3017F COLOR ECTAL CA SCREEN DOC [id number] Pt scrn tbco and id as [id number] DOC RSN FOR NOT SCREEN/REC F/U HBP * Preventive Medicine:? ??Urinary Incontinence:?Urinary Incontinence?Assessment:?Absent,?Plan of care documented:?No, reason not specified.? * Follow Up:?prn * * Sign off status: Completed true * Provider:?Ronal Abraham MD Date:? 024 Generated for Armaan brown/Radha/Vasquez on:?2024 10:27 AM EST History and Physical Notes * HPI (History of Present Illness) Category Sub-Category Detail Notes Category Not es incontinence I saw Joanne in followup today in regard to her personal history of tubular adenomas of the colon, need for colorectal cancer screening, and alcohol abuse with associated problems including pancreatitis. She was accompanied by her . I last saw Joanne in 2021 at which time we had reviewed her history of alcohol abuse and associated problems including abdominal pain, pancreatitis, and poor nutritional intake with associated weight loss. Her last colonoscopy in April of 2018 was negative for polyps although she does have a previous history of tubular adenomas removed on prior exams. She has unfortunately continued to use alcohol although now reports that she is only having about 3 nips per day. She apparently has cut down significantly since a January hospitalization at [facility] for abdominal pain. She reports that she is eating well and her weight has been stable. She has gained about 20 pounds since she was here in 2021. She currently denies any abdominal pain, signs of jaundice, nausea, vomiting, significant heartburn, nor dysphagia. She reports her bowel movements have been fairly regular and without any significant diarrhea, hematochezia, nor melena. Laboratories in January 2023 revealed a normal CBC except for MCV of 103. She also had a CT scan of her abdomen this past May which describes a normal appearing liver other than some cysts, normal pancreas, normal spleen, and no report of any ascites. Examination Category Sub-Category Detail Notes Category Not es General Examination GENERAL APPEARANCE: pleasant, aler t female in NAD EYES: sclera non-icteric NECK/THYROID: no cervical lymphade nopathy, neck supple HEART: S1, S2 normal LUNGS: clear to auscultatio n bilaterally ABDOMEN: normal bowel sounds, no guarding or rigidity, no hepatosplenomegaly, no masses palpable, soft, nontender, nondistended. NEUROLOGIC: alert and oriented SKIN: nonjaundiced, no spi nisreen angiomata. ORAL CAVITY: mucosa moist
== END 2024-04-29 09:23 | disposition home or self-care (01) ==
LOC: HO.MAMMO 09:22
PROVIDERS: PCP Nurse Practitioner Family; Visit Provider Nurse Practitioner Family
DX: Z12.31 Encounter for screening mammogram for malignant neoplasm of breast (principal)
CPT/HCPCS: 77063; 77067

== ENCOUNTER → 2024-04-29 09:45 | Outpatient (BNV) | payer MEDICARE, SELFPAY | PROVIDERS: PCP Nurse Practitioner Family; Visit Provider Internal Medicine | DX: Z12.31 Encounter for screening mammogram for malignant neoplasm of breast (principal) | CPT/HCPCS: 77063; 77067 ==

== ENCOUNTER 2024-06-05 09:13 | Outpatient (AMB) | payer MEDICARE, SELFPAY ==
--- NOTE | 2024-06-05 09:17 | A.OFFPC_ITS ---
Vital Signs 06/05/24 09:23 Height 5 ft 9 in Weight 152 lb BMI 22.4 BP 128/88 Blood Pressure Location Rt brachial Position Sitting Respiration 17 Pulse 85 Pulse Source Pulse Oximeter Temp 97.9 F Temp Source Temporal Artery Scan Pulse Oximetry (%) 97 Oxygen Delivery Method Room Air Intake Visit Reasons: HLD Intake Note: Anne Marie presents in the office today for a follow up. Allergies No Known Allergies Allergy (Verified 06/05/24 09:41) Medication List - Last Reconciled 06/05/24 by Jimmy Tinsley CNP atorvastatin 10 mg PO BEDTIME [address]-ER 3 mg PO DAILY PRN cholecalciferol (vitamin D3) 75 mcg PO DAILY 90 days duloxetine 120 mg PO QAM lorazepam 1 mg PO TID PRN Tobacco use date assessed: 06/05/24 Fall risk assessment: No Falls in past year Last assessed Fall Risk: 06/05/24 Dental Screening Dental Screen Date: 06/05/24 Did you have a dental visit in the last 12 months?: Yes Did you have a dental problem in the last 6 months where you did not have access to dental care?: No Was dental information given to patient?: Patient has dentist HPI HPI Comments History of Present Illness Details 69-year-old female, accompanied by her h usband, presents for hypercholesterolemia follow-up. She admits to making healthy dietary choices and exercising routinely. She notes that her anxiety and depressive symptoms are generally well controlled . She offers no complaints and denies acute symptoms at this time. She did not get lipid panel blood work done as planned for this visit. [facility] Medical History (Updated 06/05/24 @ 09:46 by Jimmy Tinsley CNP) Osteopenia Alcohol dependence Nicotine dependence, cigarettes, uncomplicated Hx of fracture of wrist Subdural hematoma Mesenteric artery thrombosis Elevated liver enzymes Hx of fracture of rib GERD (gastroesophageal reflux disease) Diabetes Arthritis Depression Anxiety Surgical History (Updated 02/24/24 @ 13:36 by Flores Tang PA-C) History of colonoscopy Hx of bilateral hip replacements History of esophagogastroduodenoscopy (EGD) History of tonsillectomy History of tubal ligation Family History Father Alzheimers disease Mother Heart disease COPD (chronic obstructive pulmonary disease) CHF (congestive heart failure) Sister Brain tumor Social History (Updated 06/05/24 @ 09:22 by Pat Farley MA) Household Members: Spouse Housing: House Alcohol intake: current Alcohol intake frequency: a few times a week Alcohol type: beer Patient Tobacco Use Status: Current everyday Tobacco user Tobacco use type: Cigarette Cigarettes Per Day: 4 Years Smoked: 45 Packs per year/per ci.00 e-Cigarette/Vaping Use: Never Used Second Hand Smoke Exposure: No Use of substances other than those prescribed or required for medical reasons: No service: No Current occupational status: retired Current occupational exposures/hazards: No Sexual orientation: Unable to collect Gender identity: Unable to collect Cognitive needs: No Hearing needs: No Vision needs: No Questionnaire PHQ-9 Over the last 2 weeks, how often have you been bothered by any of the following problems? 1. Little interest or pleasure in doing things: more than half the days 2. Feeling down, depressed, or hopeless: more than half the days 3. Trouble falling or staying asleep, or sleeping too much: more than half the days 4. Feeling tired or having little energy: more than half the days 5. Poor appetite or overeating: several days 6. Feeling bad about yourself - or that you are a failure or have let yourself or your family down: more than half the days 7. Trouble concentrating on things, such as reading the newspaper or watching television: not at all 8. Moving or speaking so slowly that other people could have noticed. Or the opposite - being so fidgety or restless that you have been moving around a lot more than usual: more than half the days 9. Thoughts that you would be better off or of hurting yourself in some way: not at all Total score: 13 Depression Screening Interpretation: Positive Depression Screening Follow-up: Existing condition and In treatment Depression Screening Done: Yes 32697 - PHQ-9 Billing: Patient declined-do not bill Source: Developed by Drs. Ronal Webb, Elizabeth Davis, Ryan Calvillo and colleagues, with an educational jomar from [employer]. Thrive Questionnaire Date Thrive assessed: 06/05/24 I am a: Patient What is your living situation today?: I have a steady place to live Within the past 12 months, did the food you bought not last and you didn't have the money to get more?: Never true Within the past 12 months, did you worry whether your food would run out before you got money to buy more?: Never true Do you have trouble paying for medicines?: No Do you have trouble getting transportation to medical appointments?: I choose not to answer this question Do you have trouble paying your heating and electricity bill?: No Do you have trouble taking care of your child, family member or friend?: No Do you have trouble with day-to-day activities such as bathing, preparing meals, shopping, managing finances, etc.?: No Are you currently unemployed and looking for a job?: No Are you interested in more education?: No Please select the resources that you would like help with: None Currently or been in a relationship where the following occur: No concerns reported THRIVE Score: 0 AUDIT C Alcohol Use Questionnaire (AUDIT-C) 1. How often do you have a drink containing alcohol?: 2-4 times a month 2. How many drinks containing alcohol do you have on a typical day when you are drinking?: 3 or 4 3. How often do you have six or more drinks on one occasion?: Monthly Total Score: 5 Score Reviewed/Action Taken: No ABDIAS-7 AMB Questionnaire ABDIAS-7 Date ABDIAS - 7 assessed: 06/05/24 Feeling nervous, anxious, or on edge: 2 = More than half the days Not being able to stop or control worryin = More than half the days Worrying too much about different things: 0 = Not at all Trouble relaxin = More than half the days Being so restless that it is hard to sit still: 2 = More than half the days Becoming easily annoyed or irritable: 1 = Several days Feeling afraid as if something awful might happen: 0 = Not at all Total ABDIAS-7 score (0-4 normal; 5-9 mild; 10-14 moderate; 15-21 severe): 9 Source: Developed by Drs. Ronal Webb, Elizabeth Davis, Ryan Calvillo and colleagues, with an educational jomar from [employer] ABDIAS-7 Assessment Billing ABDIAS-7 Assessment Tool: ABDIAS-7 Assessment 67092 ACT Questionnaire In the past 4 weeks, how much of the time did your asthma keep you from getting as much done at work, school or at home?: None of the time Score: 5 Review of Systems Const Details: Const Denies chills, Denies fatigue, Denies fever(s), Denies headache(s) and Denies weakness ENT Denies dizziness and Denies headache(s) Card Denies chest pain, Denies lightheadedness, Denies dyspnea and Denies other (Palpitations) Resp Denies cough, Denies dyspnea, Denies wheezing and Denies other ( shortness of breath) GI Denies abdominal pain, Denies melena, Denies hematochezia, Denies change in bowel habits, Denies dyspepsia and Denies nausea Denies hematuria and Denies dysuria Musc Denies abnormal gait, Denies myalgias, Denies arthralgias, Denies numbness and Denies tingling Skin/Breast Denies rash, Denies unusual bruising and Denies wounds Neuro Denies abnormal gait, Denies dizziness, Denies headache(s), Denies memory loss, Denies numbness, Denies Sensory deficit (Neuro), Denies tingling and Denies weakness Psych Denies anxiety, Denies depression, Denies memory loss Endo Denies cold intolerance, Denies fatigue, Denies heat intolerance, Denies polydipsia and Denies polyuria Aller/Immun Denies wheezing Physical exam (Primary Care) Vital Signs: Last Vital Signs Temp 97.9 F 06/05/24 09:23 Pulse 85 06/05/24 09:23 Resp 17 06/05/24 09:23 BP 128/88 06/05/24 09:23 Pulse Ox 97 06/05/24 09:23 Oxygen Delivery Method Room Air 06/05/24 09:23 BMI result Body Mass Index 22.4 Tobacco/Smoking Status: Tobacco use Status Tobacco use date assessed 06/05/24 06/05/24 09:27 Patient Tobacco Use Status Current everyday Tobacco 06/05/24 09:22 Tobacco use type Cigarette 06/05/24 09:22 e-Cigarette/Vaping Use Never Used 06/05/24 09:22 PHQ-9: PHQ-9 Score PHQ-9: Total score 13 06/05/24 09:27 Depression Screening Interpretation: Positive Depression Screening Follow-up: Existing condition and In treatment Thrive Assessment: Date of Thrive Assessment Date Thrive assessed 06/05/24 06/05/24 09:27 Currently or been in a relationship where the following occur: No concerns reported Const Other: General: no acute distress and well developed Nutritional Appearance: well nourished Orientation/consciousness: patient [facility]: Yes normocephalic and Yes atraumatic Eyes General: appearance normal, both eyes and all related structures Pupils: Equal, round and reactive pupils present EOM: EOMs intact bilaterally Resp Effort & Inspection: normal respiratory effort Auscultation: clear to auscultation bilaterally Cardio Rate: regular rate Rhythm: regular rhythm Heart sounds: S1 normal heart sound present, S2 normal heart sound present, no gallops, no murmurs and no rubs GI Palpation (GI): No Abdominal aortic bruit present, Soft to palpation, nontender, No hepatosplenomegaly present and No Rebound tenderness present Auscultation: normal bowel sounds General: Yes no CVA tenderness Back/Spine/Pelvis Back: no CVA tenderness Cervical Spine: cervical ROM normal and No Cervical spine tenderness Thoracic/Lumbar Spine: thoraco-lumbar ROM normal, No pain with thoraco-lumbar ROM, No thoracic spinal tenderness and No lumbar spinal tenderness Extrem General: Yes normal to inspection, No edema and No calf tenderness Skin General: warm and dry. Normal skin color. Normal skin turgor Neuro General: patient oriented x3, gait normal and no focal neuro deficit Cranial nerves: Yes Equal, round and reactive pupils present Cognition (Neuro): normal cognition Gait exam (Neuro): Normal gait present Sensory Exam: No Sensory deficit (Neuro) Psych Appearance: grossly normal Affect: normal affect Attitude: cooperative Thought process: Normal thought process present Coding Level of Care Code Est Pt Level 3 (43938) Diagnoses Hypercholesterolemia E78.00 Additional Codes ABDIAS-7 Assessment Billing - ABDIAS-7 Assessment Tool: ABDIAS-7 Assessment 82412 ([id number]) Assessment & Plan Assessment & Plan (1) Hypercholesterolemia: Code(s): E78.00 - Pure hypercholesterolemia, unspecified Category: Medical Plan: She is not fasting today and will get lipid panel blood work done next week. Will review results and make changes as needed. Continue current treatment regimen. Perform fasting lipid panel blood work 2-3 days before next visit. Follow-up in 4 months or sooner with symptoms or concerns. Verbalized understanding and agreed with the plan. Orders: Orders Lipid Panel 4 Months E78.5 - Hyperlipidemia, unspecified
[2024-06-05 09:23] VITALS: BP 128/88; PULSE 85; RESP 17; TEMP 36.6; O2SAT 97; BMI 22.4
--- OUTSIDE RECORDS SUMMARY | 2024-06-05 09:33 | XMS_ITS ---
Author Organization [facility] Address [address] [place] [address] Care Team Providers Care Groundskeeper Name Role Phone Jimmy Tinsley N.P. Primary Care Provider Ronal Durant [phone] REASON FOR VISIT screening,hx polyps Problems Problem Type SNOMED Code ICD Code Onset Dates Problem Status W/U Status Risk Notes Problem History of polyp of colon (situation) (599025524) Personal history of colonic polyps (Z86.010) Active confirmed Problem Diverticular disease of colon (376379867) Diverticulosis of large intestine without perforation or abscess without bleeding (K57.30) Active confirmed Encounters Encounter Location Date Provider [place] [facility] [place] [address] [place] [phone] 11/06/2023 Ronal Abraham Colon cancer scree rhina [...] Notes * DEVI HADDADOB:1955 (69 yo F)Acc No.[id number]:11/06/2023 COLON WITH MAC Patient:?JOANNE HADDAD Provider:?Ronal Abraham MD :1955???Age:68 Y???Sex:Female D ate:11/06/2023 Address:[address] [place], [place] [id number] Pcp:Jimmy Tinsley NAlmaz. Subjective: * Chief Complaints: [...] MD Date:? 024 Generated for Armaan brown/Radha/eThaleysmitting on:?06/05/2024 09:33 AM EDT
--- OUTSIDE RECORDS SUMMARY | 2024-06-05 09:33 | XMS_ITS ---
Author Organization [facility] Address [address] [place] [address] Care Team Providers Care Votator Machine Operator Name Role Phone Jimmy Tinsley N.P. Primary Care Provider Ronal Durant [phone] Allergies No Known Allergies REASON FOR VISIT [...] Problem History of adenomatous polyp of colon (738611217) History of adenomatous polyp of colon (Z86.010) Active confirmed Problem Colon cancer screening (324265151) Colon cancer screening (Z12.11) Active confirmed Problem Pre-procedure evaluation check (990470727) Encounter for other preprocedural examination (Z01.818) Active confirmed Problem 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) Active confirmed Problem Generalized abdominal pain (907083844) Abdominal pain, acute, generalized (R10.84) Active confirmed Vital Signs Blood pressure systolic 00 mm Hg 08/06/19 24 Blood pressure diastolic 00 mm Hg 024 Height 69 in 08/06/2023 Weight 148 lbs 08/06/2023 BMI 21.85 kg/m2 08/06/2023 Encounters Encounter Location Date Provider Diagnosis [facility] [address] [place] [address] 08/06/2023 Ronal Abraham History of adenomato us [...] Notes * SIMON HADDADNEDOB:1955 (68 yo F)Acc No.[id number]:08/06/2023 Progress Notes Patient:?JOANNE HADDAD Provider:?Ronal Abraham MD :1955???Age:68 Y???Sex:Female D ate:08/06/2023 Address:[address] [place], [place] [address] Pcp:Jimmy Tinsley N.P. Subjective: * Chief Complaints: * ???Patient presents [...] down significantly since a January hospitalization at [facility] for abdominal pain. ?She reports that [...] Procedure Codes:?3017F COLOR ECTAL CA SCREEN DOC [id number] Pt scrn tbco and id as [id number] DOC RSN FOR NOT SCREEN/REC F/U HBP * Preventive Medicine:? ??Urinary Incontinence:?Urinary Incontinence?Assessment:?Absent,?Plan of care documented:?No, reason not specified.? * Follow Up:?prn * * Sign off status: Completed true * Provider:?Ronal Abraham MD Date:? 024 Generated for Jaylini stephanie/Radha/eTransmitting on:?06/05/2024 09:33 AM EDT History and Physical Notes * HPI (History [...] down significantly since a January hospitalization at [facility] for abdominal pain. She reports that [...]
--- OUTSIDE RECORDS SUMMARY | 2024-06-05 09:33 | XMS_ITS | Patient Health Record ---
Author Organization [facility] Address [address] [place] [address] Care Team Providers Care Superintendent Meters Name Role Phone Jimmy Tinsley N.P. Primary Care Provider Ronal Durant [phone] Allergies No Known Allergies Reason For Referral [...] Status Risk Notes Problem Colon cancer screening (750757257) Colon cancer screening (Z12.11) Active confirmed Problem History of adenomatous polyp of colon (204829716) History of adenomatous polyp of colon (Z86.010) Active confirmed Problem History of polyp of colon (situation) (116938220) Personal history of colonic polyps (Z86.010) Active confirmed Problem Pre-procedure evaluation check (326672856) Encounter for other preprocedural examination (Z01.818) Active confirmed Problem 69478716 Weight loss (R63.4) Active confirmed Problem Alcohol abuse wi th other alcohol-induced disorder (F10.188) Active confirmed Problem Diverticular disease of colon (829800363) Diverticulosis of large intestine without perforation or abscess without bleeding (K57.30) Active confirmed Problem 786211603 Nausea (R11.0) Active confirmed Problem 158421663 Gastroesophageal reflux disease without esophagitis (K21.9) Active confirmed Problem 369314747 Elevated liver enzymes (R74.8) Active confirmed Problem 75491125 Alcoholic liver disease (K70.9) Active confirmed Problem 10444874 Diarrhea, unspecified type (R19.7) Active confirmed Problem 73879576 Collagenous coli tis (K52.831) Active confirmed Problem Generalized abdominal pain (004491275) Abdominal pain, acute, generalized (R10.84) Active confirmed Problem 0810065 Alcoholism (F10.20) Active confirmed Vital Signs Blood pressure diastolic 00 mm Hg 08/06/2023 Height 69 in 08/06/2023 Blood pressure systolic 00 mm Hg 08/06/2023 Weight 148 lbs 08/06/2023 BMI 21.85 kg/m2 08/06/2023 Encounters Encounter Location Date Provider Diagnosis [facility] [place] [address] [place] [phone] 11/06/2023 Ronal Abraham Colon cancer screeni ng Z12.11 ; Personal history of colonic polyps Z86.010 ; Diverticulosis of large intestine without perforation or abscess without bleeding K57.30 and Other hemorrhoids K64.8 [facility] [address] [place] [address] 08/06/2023 Ronal Abraham History of adenomato us [...] FOLATE 05/01/2018 HEPATITIS B, C PROFILE 05/01/2018 [id number] (A1A) 05/01/2018 MITOCHONDRIAL AB 05/01/2018 SMOOTH MUSCLE [...] MEDICARE OF [place] [address] [place] [address] [id number] JOANNE HADDAD Self - patient is the insured [employer] SUPPLEMENTAL PLAN [address] [place] [id number] JOANNE HADDAD Self - patient is the insured Medical (General) History Medical History History ICD Code Anxiety Depression Denies NM,DM,CVA,Lung disease,renal dise ase Colonoscopy in 03/2006 with [...]
== END 2024-06-05 09:46 | disposition home or self-care (01) ==
LOC: HO.HMCFM 09:14
PROVIDERS: PCP Nurse Practitioner Family; Visit Provider Nurse Practitioner Family
DX: E78.00 Pure hypercholesterolemia, unspecified (principal)

== ENCOUNTER → 2024-06-05 09:13 | Outpatient (BNVA) | payer MEDICARE, SELFPAY | PROVIDERS: PCP Nurse Practitioner Family; Visit Provider Nurse Practitioner Family | DX: E78.00 Pure hypercholesterolemia, unspecified (principal); F17.210 Nicotine dependence, cigarettes, uncomplicated | CPT/HCPCS: 96127; 99212 ==

== ENCOUNTER 2024-06-09 09:05 | Outpatient (REF) | payer MEDICARE, SELFPAY ==
--- OUTSIDE RECORDS SUMMARY | 2024-06-09 09:40 | XMS_ITS ---
Author Organization [facility] Address [address] [place] [address] Care Team Providers Care Tank Pumper Name Role Phone Jimmy Tinsley N.P. 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) Active confirmed Problem Generalized abdominal pain (567365936) Abdominal pain, acute, generalized (R10.84) Active confirmed Vital Signs Blood pressure systolic 00 mm Hg 08/06/19 24 Blood pressure diastolic 00 mm Hg 024 Height 69 in 08/06/2023 Weight 148 lbs 08/06/2023 BMI 21.85 kg/m2 08/06/2023 Encounters Encounter Location Date Provider Diagnosis [facility] [address] [place] [address] 08/06/2023 Ronal Abraham History of adenomato us [...] Notes * SIMON HADDADNEDOB:1955 (68 yo F)Acc No.[id number]:08/06/2023 Progress Notes Patient:?JOANNE HADDAD Provider:?Ronal Abraham MD :1955???Age:68 Y???Sex:Female D ate:08/06/2023 Address:[address] [place], [place] [address] Pcp:Jimmy Tinsley N.P. Subjective: * Chief Complaints: [...] down significantly since a January hospitalization at [facility] for abdominal pain. ?She reports that she [...] Procedure Codes:?3017F COLOR ECTAL CA SCREEN DOC [id number] Pt scrn tbco and id as [id number] DOC RSN FOR NOT SCREEN/REC F/U HBP * Preventive Medicine:? ??Urinary Incontinence:?Urinary Incontinence?Assessment:?Absent,?Plan of care documented:?No, reason not specified.? * Follow Up:?prn * * Sign off status: Completed true * Provider:?Ronal Abraham MD Date:? 024 Generated for Jaylini stephanie/Radha/eTransmitting on:?06/09/2024 09:40 AM EDT History and Physical Notes * [...] down significantly since a January hospitalization at [facility] for abdominal pain. She reports that she [...]
--- OUTSIDE RECORDS SUMMARY | 2024-06-09 09:40 | XMS_ITS | Patient Health Record ---
Author Organization [facility] Address [address] [place] [address] Care Team Providers Care Director Facilities Maintenance Name Role Phone Jimym Tinsley N.P. Primary Care Provider Ronal Durant [phone] Allergies No Known Allergies Reason For Referral [...] Status Risk Notes Problem Colon cancer screening (466675328) Colon cancer screening (Z12.11) Active confirmed Problem History of adenomatous polyp of colon (680677245) History of adenomatous polyp of colon (Z86.010) Active confirmed Problem History of polyp of colon (situation) (530871649) Personal history of colonic polyps (Z86.010) Active confirmed Problem Pre-procedure evaluation check (776588756) Encounter for other preprocedural examination (Z01.818) Active confirmed Problem 96744598 Weight loss (R63.4) Active confirmed Problem Alcohol abuse wi th other alcohol-induced disorder (F10.188) Active confirmed Problem Diverticular disease of colon (477127487) Diverticulosis of large intestine without perforation or abscess without bleeding (K57.30) Active confirmed Problem 692999963 Nausea (R11.0) Active confirmed Problem 297853243 Gastroesophageal reflux disease without esophagitis (K21.9) Active confirmed Problem 710443328 Elevated liver enzymes (R74.8) Active confirmed Problem 97236856 Alcoholic liver disease (K70.9) Active confirmed Problem 71533224 Diarrhea, unspecified type (R19.7) Active confirmed Problem 85862079 Collagenous coli tis (K52.831) Active confirmed Problem Generalized abdominal pain (600215033) Abdominal pain, acute, generalized (R10.84) Active confirmed Problem 3935057 Alcoholism (F10.20) Active confirmed Vital Signs Blood pressure diastolic 00 mm Hg 08/06/2023 Height 69 in 08/06/2023 Blood pressure systolic 00 mm Hg 08/06/2023 Weight 148 lbs 08/06/2023 BMI 21.85 kg/m2 08/06/2023 Encounters Encounter Location Date Provider Diagnosis [facility] [place] [address] [place] [phone] 11/06/2023 Ronal Abraham Colon cancer screeni ng Z12.11 ; Personal history of colonic polyps Z86.010 ; Diverticulosis of large intestine without perforation or abscess without bleeding K57.30 and Other hemorrhoids K64.8 [facility] [address] [place] [address] 08/06/2023 Ronal Abraham History of adenomato us [...] FOLATE 05/01/2018 HEPATITIS B, C PROFILE 05/01/2018 [id number] (A1A) 05/01/2018 MITOCHONDRIAL AB 05/01/2018 SMOOTH MUSCLE [...] OF [place] [address] [place] [address] [id number] JOANNE HADDAD Self - patient is the insured [employer] SUPPLEMENTAL PLAN [address] [place] [id number] JOANNE HADDAD Self - patient is the insured Medical (General) History Medical History History ICD Code Anxiety Depression Denies CT,DM,CVA,Lung disease,renal dise ase Colonoscopy in 03/2006 with [...]
[2024-06-09 11:24] LABS: Cholesterol 238 mg/dL (<200); HDL Cholesterol 92 mg/dL (>40); LDL Cholesterol Calculated 133 mg/dL (<100); Triglycerides 69 mg/dL (<150)
== END 2024-06-09 09:06 | disposition home or self-care (01) ==
LOC: HO.WFDLDS 09:05
PROVIDERS: Visit Provider Nurse Practitioner Family
DX: E78.00 Pure hypercholesterolemia, unspecified (principal)
CPT/HCPCS: 36415; 80061

== ENCOUNTER 2024-07-29 09:12 | Outpatient (REF) | payer MEDICARE, SELFPAY ==
--- OUTSIDE RECORDS SUMMARY | 2024-07-29 09:32 | XMS_ITS | Patient Health Record ---
Author Organization [facility] Address [address] [place] [address] Care Team Providers Care Public Health Social Worker Name Role Phone Jimmy Tinsley N.P. Primary Care Provider Ronal Durant [phone] Allergies No Known Allergies Reason For Referral [...] Status Risk Notes Problem Colon cancer screening (832108815) Colon cancer screening (Z12.11) Active confirmed Problem History of adenomatous polyp of colon (138961942) History of adenomatous polyp of colon (Z86.010) Active confirmed Problem History of polyp of colon (situation) (608359281) Personal history of colonic polyps (Z86.010) Active confirmed Problem Pre-procedure evaluation check (212844458) Encounter for other preprocedural examination (Z01.818) Active confirmed Problem 97787449 Weight loss (R63.4) Active confirmed Problem Alcohol abuse wi th other alcohol-induced disorder (F10.188) Active confirmed Problem Diverticular disease of colon (830070371) Diverticulosis of large intestine without perforation or abscess without bleeding (K57.30) Active confirmed Problem 411209533 Nausea (R11.0) Active confirmed Problem 503633437 Gastroesophageal reflux disease without esophagitis (K21.9) Active confirmed Problem 190401550 Elevated liver enzymes (R74.8) Active confirmed Problem 80188197 Alcoholic liver disease (K70.9) Active confirmed Problem 19940256 Diarrhea, unspecified type (R19.7) Active confirmed Problem 29060478 Collagenous coli tis (K52.831) Active confirmed Problem Generalized abdominal pain (443252610) Abdominal pain, acute, generalized (R10.84) Active confirmed Problem 7998890 Alcoholism (F10.20) Active confirmed Vital Signs Blood pressure diastolic 00 mm Hg 08/06/2023 Height 69 in 08/06/2023 Blood pressure systolic 00 mm Hg 08/06/2023 Weight 148 lbs 08/06/2023 BMI 21.85 kg/m2 08/06/2023 Encounters Encounter Location Date Provider Diagnosis [facility] [place] [address] [place] [phone] 11/06/2023 Ronal Abraham Colon cancer screeni ng Z12.11 ; Personal history of colonic polyps Z86.010 ; Diverticulosis of large intestine without perforation or abscess without bleeding K57.30 and Other hemorrhoids K64.8 [facility] [address] [place] [address] 08/06/2023 Ronal Abraham History of adenomato us [...] FOLATE 05/01/2018 HEPATITIS B, C PROFILE 05/01/2018 [id number] (A1A) 05/01/2018 MITOCHONDRIAL AB 05/01/2018 SMOOTH MUSCLE [...] OF [place] [address] [place] [address] [id number] JOANNE HADDAD Self - patient is the insured [employer] SUPPLEMENTAL PLAN [address] [place] [id number] JOANNE HADDAD Self - patient is the insured Medical (General) History Medical History History ICD Code Anxiety Depression Denies [place],DM,CVA,Lung disease,renal dise ase Colonoscopy in 03/2006 with [...]
[2024-07-29 11:44] LABS: Cholesterol 172 mg/dL (<200); HDL Cholesterol 86 mg/dL (>40); LDL Cholesterol Calculated 75 mg/dL (<100); Triglycerides 55 mg/dL (<150)
== END 2024-07-29 09:13 | disposition home or self-care (01) ==
LOC: HO.WFDLDS 09:12
PROVIDERS: Visit Provider Nurse Practitioner Family
DX: E78.5 Hyperlipidemia, unspecified (principal)
CPT/HCPCS: 36415; 80061

== ENCOUNTER 2024-08-03 08:23 | Outpatient (AMB) | payer MEDICARE, SELFPAY ==
--- NOTE | 2024-08-03 08:27 | A.OFFPC_ITS ---
Vital Signs 08/03/24 08:32 Height 5 ft 9 in Weight 151 lb 2 oz BMI 22.3 BP 138/69 Blood Pressure Location Lt brachial Position Sitting Respiration 16 Pulse 86 Pulse Source Pulse Oximeter Temp 98.2 F Temp Source Oral Pulse Oximetry (%) 100 Oxygen Delivery Method Room Air Intake Visit Reasons: f/u for hyperlipidemia Intake Note: patient here for follow up on Hyperlipidemia Freight Unloader Required: No Is last menstrual period known: No Post menopausal: No Patient : No Allergies No Known Allergies Allergy (Verified 08/03/24 08:37) Tobacco use date assessed: 08/03/24 Fall risk assessment: No Falls in past year Last assessed Fall Risk: 08/03/24 Dental Screening Dental Screen Date: 08/03/24 Did you have a dental visit in the last 12 months?: Yes Did you have a dental problem in the last 6 months where you did not have access to dental care?: No Was dental information given to patient?: Patient has dentist HPI HPI Comments History of Present Illness Details 69-year-old female, accompanied by her h usband, presents for hypercholesterolemia follow-up. She admits to making healthy dietary choices and exercising routinely. She notes that her anxiety and depressive symptoms are generally well controlled. She offers no complaints and denies acute symptoms at this time. [facility] Medical History (Updated 06/05/24 @ 09:46 by Jimmy Tinsley CNP) Osteopenia Alcohol dependence Nicotine dependence, cigarettes, uncomplicated Hx of fracture of wrist Subdural hematoma Mesenteric artery thrombosis Elevated liver enzymes Hx of fracture of rib GERD (gastroesophageal reflux disease) Diabetes Arthritis Depression Anxiety Surgical History (Updated 02/24/24 @ 13:36 by Flores Tang PA-C) History of colonoscopy Hx of bilateral hip replacements History of esophagogastroduodenoscopy (EGD) History of tonsillectomy History of tubal ligation Family History Father Alzheimers disease Mother Heart disease COPD (chronic obstructive pulmonary disease) CHF (congestive heart failure) Sister Brain tumor Social History (Updated 06/05/24 @ 09:22 by Pat Farley MA) Household Members: Spouse Housing: House Alcohol intake: current Alcohol intake frequency: a few times a week Alcohol type: beer Patient Tobacco Use Status: Current everyday Tobacco user Tobacco use type: Cigarette Cigarettes Per Day: 4 Years Smoked: 45 e-Cigarette/Vaping Use: Never Used Second Hand Smoke Exposure: No service: No Current occupational status: retired Current occupational exposures/hazards: No Sexual orientation: Unable to collect Gender identity: Unable to collect Cognitive needs: No Hearing needs: No Vision needs: No Questionnaire PHQ-9 Over the last 2 weeks, how often have you been bothered by any of the following problems? 1. Little interest or pleasure in doing things: several days 2. Feeling down, depressed, or hopeless: several days 3. Trouble falling or staying asleep, or sleeping too much: several days 4. Feeling tired or having little energy: several days 5. Poor appetite or overeating: several days 6. Feeling bad about yourself - or that you are a failure or have let yourself or your family down: several days 7. Trouble concentrating on things, such as reading the newspaper or watching television: not at all 8. Moving or speaking so slowly that other people could have noticed. Or the opposite - being so fidgety or restless that you have been moving around a lot more than usual: not at all 9. Thoughts that you would be better off or of hurting yourself in some way: not at all Total score: 6 Depression Screening Interpretation: Positive Depression Screening Follow-up: Existing condition and In treatment Depression Screening Done: Yes Source: Developed by Drs. Ronal Webb, Elizabeth Davis, Ryan Calvillo and colleagues, with an educational jomar from [employer]. Thrive Questionnaire Date Thrive assessed: 06/04/24 I am a: Patient What is your living situation today?: I have a steady place to live Within the past 12 months, did the food you bought not last and you didn't have the money to get more?: Never true Within the past 12 months, did you worry whether your food would run out before you got money to buy more?: Never true Do you have trouble paying for medicines?: No Do you have trouble getting transportation to medical appointments?: I choose not to answer this question Do you have trouble paying your heating and electricity bill?: No Do you have trouble taking care of your child, family member or friend?: No Do you have trouble with day-to-day activities such as bathing, preparing meals, shopping, managing finances, etc.?: No Are you currently unemployed and looking for a job?: No Are you interested in more education?: No Please select the resources that you would like help with: None Currently or been in a relationship where the following occur: No concerns reported THRIVE Score: 0 ABDIAS-7 AMB Questionnaire ABDIAS-7 Date ABDIAS - 7 assessed: 06/05/24 Feeling nervous, anxious, or on edge: 1 = Several days Not being able to stop or control worryin = Several days Worrying too much about different things: 1 = Several days Trouble relaxin = Several days Being so restless that it is hard to sit still: 0 = Not at all Becoming easily annoyed or irritable: 1 = Several days Feeling afraid as if something awful might happen: 1 = Several days Total ABDIAS-7 score (0-4 normal; 5-9 mild; 10-14 moderate; 15-21 severe): 6 Source: Developed by Drs. Ronal Webb, Elizabeth Davis, Ryan Calvillo and colleagues, with an educational jomar from [employer]. Review of Systems Const Details: Const Denies chills, Denies fatigue, Denies fever(s), Denies headache(s) and Denies weakness ENT Denies dizziness and Denies headache(s) Card Denies chest pain, Denies lightheadedness, Denies dyspnea and Denies other (Palpitations) Resp Denies cough, Denies dyspnea, Denies wheezing and Denies other ( shortness of breath) GI Denies abdominal pain, Denies melena, Denies hematochezia, Denies change in bowel habits, Denies dyspepsia and Denies nausea Denies hematuria and Denies dysuria Musc Denies abnormal gait, Denies myalgias, Denies arthralgias, Denies numbness and Denies tingling Skin/Breast Denies rash, Denies unusual bruising and Denies wounds Neuro Denies abnormal gait, Denies dizziness, Denies headache(s), Denies memory loss, Denies numbness, Denies Sensory deficit (Neuro), Denies tingling and Denies weakness Psych Denies anxiety, Denies depression, Denies memory loss Endo Denies cold intolerance, Denies fatigue, Denies heat intolerance, Denies polydipsia and Denies polyuria Aller/Immun Denies wheezing Physical exam (Primary Care) Tobacco/Smoking Status: Tobacco use Status Tobacco use date assessed 06/05/24 08/03/24 08:29 Patient Tobacco Use Status Current everyday Tobacco 08/03/24 08:29 Tobacco use type Cigarette 08/03/24 08:29 e-Cigarette/Vaping Use Never Used 08/03/24 08:29 Depression Screening Interpretation: Positive Depression Screening Follow-up: Existing condition and In treatment Thrive Assessment: Date of Thrive Assessment Date Thrive assessed 06/04/24 08/03/24 08:29 Currently or been in a relationship where the following occur: No concerns reported Const Other: General: no acute distress and well developed Nutritional Appearance: well nourished Orientation/consciousness: patient oriented x3 HENMT Head: Yes normocephalic and Yes atraumatic Eyes General: appearance normal, both eyes and all related structures Pupils: Equal, round and reactive pupils present EOM: EOMs intact bilaterally Resp Effort & Inspection: normal respiratory effort Auscultation: clear to auscultation bilaterally Cardio Rate: regular rate Rhythm: regular rhythm Heart sounds: S1 normal heart sound present, S2 normal heart sound present, no gallops, no murmurs and no rubs GI Palpation (GI): No Abdominal aortic bruit present, Soft to palpation, nontender, No hepatosplenomegaly present and No Rebound tenderness present Auscultation: normal bowel sounds General: Yes no CVA tenderness Back/Spine/Pelvis Back: no CVA tenderness Cervical Spine: cervical ROM normal and No Cervical spine tenderness Thoracic/Lumbar Spine: thoraco-lumbar ROM normal, No pain with thoraco-lumbar ROM, No thoracic spinal tenderness and No lumbar spinal tenderness Extrem General: Yes normal to inspection, No edema and No calf tenderness Skin General: warm and dry. Normal skin color. Normal skin turgor Neuro General: patient oriented x3, gait normal and no focal neuro deficit Cranial nerves: Yes Equal, round and reactive pupils present Cognition (Neuro): normal cognition Gait exam (Neuro): Normal gait present Sensory Exam: No Sensory deficit (Neuro) Psych Appearance: grossly normal Affect: normal affect Attitude: cooperative Thought process: Normal thought process present Coding Level of Care Code Est Pt Level 3 (67050) Diagnoses Hypercholesterolemia E78.00 Anxiety and depression F41.9; F32.A Assessment & Plan Assessment & Plan (1) Hypercholesterolemia: Code(s): E78.00 - Pure hypercholesterolemia, unspecified Category: Medical Plan: Recent triglycerides/total cholesterol/LDL/HDL levels are normal, 55/172/75/86 respectively. Continue current treatment regimen. Advised to limit foods high in saturated fat and avoid foods high in trans fat. Routine exercise encouraged. Will monitor lipid panel level annually or if presents with related symptoms or concerns. Verbalized understanding and agreed with the plan. (2) Anxiety and depression: Code(s): F41.9 - Anxiety disorder, unspecified; F32.A - Depression, unspecified Category: Medical Plan: Reports controlled anxiety and depressive symptoms. PHQ-9 and ABDIAS-7 scores revealed mild depression and anxiety. Continue current treatment regimen. Routine exercise encouraged. Follow-up in 3 months or sooner with symptoms or concerns. Verbalized understanding and agreed with the treatment plan.
--- OUTSIDE RECORDS SUMMARY | 2024-08-03 08:29 | XMS_ITS | Patient Health Record ---
Author Organization [facility] Address [address] [place] [id number] Care Team Providers Care Dispute Resolution Specialist Name Role Phone Jimmy Tinsley N.P. Primary Care Provider Ronal Durant [phone] Allergies No Known Allergies Reason For Referral [...] Status Risk Notes Problem Colon cancer screening (865781343) Colon cancer screening (Z12.11) Active confirmed Problem History of adenomatous polyp of colon (911591628) History of adenomatous polyp of colon (Z86.010) Active confirmed Problem History of polyp of colon (situation) (549052400) Personal history of colonic polyps (Z86.010) Active confirmed Problem Pre-procedure evaluation check (106237223) Encounter for other preprocedural examination (Z01.818) Active confirmed Problem 30251863 Weight loss (R63.4) Active confirmed Problem Alcohol abuse wi th other alcohol-induced disorder (F10.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) Active confirmed Problem Diverticular disease of colon (628557154) Diverticulosis of large intestine without perforation or abscess without bleeding (K57.30) Active confirmed Problem 345032155 Nausea (R11.0) Active confirmed Problem 652717546 Gastroesophageal reflux disease without esophagitis (K21.9) Active confirmed Problem 479114691 Elevated liver enzymes (R74.8) Active confirmed Problem 64119781 Alcoholic liver disease (K70.9) Active confirmed Problem 99193013 Diarrhea, unspecified type (R19.7) Active confirmed Problem 79863045 Collagenous coli tis (K52.831) Active confirmed Problem Generalized abdominal pain (696592166) Abdominal pain, acute, generalized (R10.84) Active confirmed Problem 2640853 Alcoholism (F10.20) Active confirmed Vital Signs Blood pressure diastolic 00 mm Hg 08/06/2023 Height 69 in 08/06/2023 Blood pressure systolic 00 mm Hg 08/06/2023 Weight 148 lbs 08/06/2023 BMI 21.85 kg/m2 08/06/2023 Encounters Encounter Location Date Provider Diagnosis [facility] [address] [place] [phone] 11/06/2023 Ronal Abraham Colon cancer screeni ng Z12.11 ; Personal history of colonic polyps Z86.010 ; Diverticulosis of large intestine without perforation or abscess without bleeding K57.30 and Other hemorrhoids K64.8 [facility] [address] [place] [address] 08/06/2023 Ronal Abraham History of adenomato us [...] FOLATE 05/01/2018 HEPATITIS B, C PROFILE 05/01/2018 [id number] (A1A) 05/01/2018 MITOCHONDRIAL AB 05/01/2018 SMOOTH MUSCLE [...] OF [place] [address] [place] [address] [id number] JOANNE HADDAD Self - patient is the insured [employer] [address] [place] [address] [id number] JOANNE HADDAD Self - patient is the insured Medical (General) History Medical History History ICD Code Anxiety Depression Denies TN,DM,CVA,Lung disease,renal dise ase Colonoscopy in 03/2006 with [...]
[2024-08-03 08:32] VITALS: BP 138/69; PULSE 86; RESP 16; TEMP 36.8; O2SAT 100; BMI 22.3
== END 2024-08-03 08:52 | disposition home or self-care (01) ==
LOC: HO.HMCFM 08:24
PROVIDERS: PCP Nurse Practitioner Family; Visit Provider Nurse Practitioner Family
DX: E78.00 Pure hypercholesterolemia, unspecified (principal); F41.9 Anxiety disorder, unspecified; F32.A Depression, unspecified

== ENCOUNTER → 2024-08-03 08:23 | Outpatient (BNVA) | payer MEDICARE, SELFPAY | PROVIDERS: PCP Nurse Practitioner Family; Visit Provider Nurse Practitioner Family | DX: E78.00 Pure hypercholesterolemia, unspecified (principal); F41.9 Anxiety disorder, unspecified; F32.A Depression, unspecified | CPT/HCPCS: 99212 ==

== ENCOUNTER 2024-11-09 08:28 | Outpatient (AMB) | payer MEDICARE, SELFPAY ==
--- OUTSIDE RECORDS SUMMARY | 2023-11-06 04:30 | XMS_ITS ---
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 Primary Care Provider Ronal Durant [phone] REASON FOR VISIT screening,hx polyps Problems Problem Type SNOMED Code ICD Code Onset Dates Problem Status W/U Status Risk Notes Problem History of polyp of colon (situation) (154621654) Personal history of colonic polyps (Z86.010) Active confirmed Problem Diverticular disease of colon (595742797) Diverticulosis of large intestine without perforation or abscess without bleeding (K57.30) Active confirmed Encounters Encounter Location Date Provider Diagnosis [facility] [place] [address] [place] [address] [phone] 11/06/2023 Ronal Abraham Colon cancer scree rhina [...] Notes * DEVI HADDADOB:1955 (69 yo F)Acc No.[id number]:11/06/2023 COLON WITH MAC Patient: JOANNE STATON Provider: Riri Abraham MD :1955 A ge:68 Y S ex:Female Date:11/06/2023 Address:[address] [place], [place] [id number] Pcp:Jimmy Tinsley NJeanP. Subjective: * Chief Complaints: * 1 . Screening,hx polyps. * Medical History: Objective: * Vitals: Assessment: * Assessment: 1. C olon cancer screening - Z12.11 (Primary) 2 . P ersonal history of colonic polyps - Z86.010 3 . D iverticulosis of large intestine without perforation or abscess without bleeding - K57.30 4 . O ther hemorrhoids - K64.8 ? Plan: * Treatment: * Procedure Codes: G 0105 COLOREC CANCR SCR; COLNSCPY HI RISK, 0529F INTRVL 3+YRS PTS CLNSCP DOCD, 0528F RCMND FLW-UP 10 YRS DOCD, Modifiers: 1P * * The named appointment provid er may or may not be the originator of this progress note, and it is not deemed complete until electronically signed by the appointment provider. Sign off status: Pending * Provider: Riri Abraham MD Date: 0 11/06/2023 Generated for Armaan brown/Radha/Cherriitting on: 0 11/09/2024 09:31 AM EDT
--- NOTE | 2024-11-09 08:39 | MHC.PC.OV ---
Vital Signs 11/09/24 08:54 11/09/24 09:24 Height 5 ft 9 in Weight 146 lb 4 oz BMI 21.6 BP 143/71 H 110/80 Blood Pressure Location Lt brachial Lt brachial Position Sitting Sitting Respiration 16 Pulse 94 Pulse Source Pulse Oximeter Temp 98.3 F Temp Source Oral Pulse Oximetry (%) 99 Oxygen Delivery Method Room Air Intake Visit Reasons: 3 mos anxiety, depression Intake Note: patient here for 3 month follow up on anxiety and depression International Bank Manager Required: No Is last menstrual period known: No Post menopausal: No Patient : No Allergies No Known Allergies Allergy (Verified 11/09/24 09:20) Medication List - Last Reconciled 11/09/24 by Jimmy Tinsley CNP atorvastatin 20 mg PO BEDTIME 90 days cholecalciferol (vitamin D3) 75 mcg PO DAILY 90 days duloxetine 120 mg PO QAM lorazepam 1 mg PO TID PRN Tobacco use date assessed: 11/09/24 Fall risk assessment: No Falls in past year Last assessed Fall Risk: 11/09/24 Dental Screening Dental Screen Date: 11/09/24 Did you have a dental visit in the last 12 months?: Yes Did you have a dental problem in the last 6 months where you did not have access to dental care?: No Was dental information given to patient?: Patient has dentist HPI HPI Comments History of Present Illness Details 69-year-old female, accompanied by her , presents for hypercholesterolemia follow-up. She admits to taking her medications as prescribed without adverse reactions. She notes that her anxiety and depressive symptoms are generally well controlled. According to her , the patient is irritable when the sun starts to set in the evening, more often than not; patient confirms symptoms. No acute symptoms at this time.. [facility] Medical History (Updated 06/05/24 @ 09:46 by Jimmy Tinsley CNP) Osteopenia Alcohol dependence Nicotine dependence, cigarettes, uncomplicated Hx of fracture of wrist Subdural hematoma Mesenteric artery thrombosis Elevated liver enzymes Hx of fracture of rib GERD (gastroesophageal reflux disease) Diabetes Arthritis Depression Anxiety Surgical History (Updated 02/24/24 @ 13:36 by Flores Tang PA-C) History of colonoscopy Hx of bilateral hip replacements History of esophagogastroduodenoscopy (EGD) History of tonsillectomy History of tubal ligation Family History Father Alzheimers disease Mother Heart disease COPD (chronic obstructive pulmonary disease) CHF (congestive heart failure) Sister Brain tumor Social History (Updated 06/05/24 @ 09:22 by Pat Farley MA) Household Members: Spouse Housing: House Alcohol intake: current Alcohol intake frequency: a few times a week Alcohol type: beer Patient Tobacco Use Status: Current everyday Tobacco user Tobacco use type: Cigarette Cigarettes Per Day: 4 Years Smoked: 45 e-Cigarette/Vaping Use: Never Used Second Hand Smoke Exposure: No service: No Current occupational status: retired Current occupational exposures/hazards: No Sexual orientation: Unable to collect Gender identity: Unable to collect Cognitive needs: No Hearing needs: No Vision needs: No Questionnaire PHQ-9 Over the last 2 weeks, how often have you been bothered by any of the following problems? 1. Little interest or pleasure in doing things: several days 2. Feeling down, depressed, or hopeless: several days 3. Trouble falling or staying asleep, or sleeping too much: several days 4. Feeling tired or having little energy: several days 5. Poor appetite or overeating: several days 6. Feeling bad about yourself - or that you are a failure or have let yourself or your family down: several days 7. Trouble concentrating on things, such as reading the newspaper or watching television: several days 8. Moving or speaking so slowly that other people could have noticed. Or the opposite - being so fidgety or restless that you have been moving around a lot more than usual: several days 9. Thoughts that you would be better off or of hurting yourself in some way: not at all Total score: 8 Depression Screening Interpretation: Positive Depression Screening Follow-up: Existing condition and In treatment Depression Screening Done: Yes 77289 - PHQ-9 Billing: Yes Source: Developed by Drs. Ronal Webb, Elizabeth Davis, Ryan Calvillo and colleagues, with an educational jomar from [employer]. Thrive Questionnaire Date Thrive assessed: 06/04/24 I am a: Patient What is your living situation today?: I have a steady place to live Within the past 12 months, did the food you bought not last and you didn't have the money to get more?: Never true Within the past 12 months, did you worry whether your food would run out before you got money to buy more?: Never true Do you have trouble paying for medicines?: No Do you have trouble getting transportation to medical appointments?: I choose not to answer this question Do you have trouble paying your heating and electricity bill?: No Do you have trouble taking care of your child, family member or friend?: No Do you have trouble with day-to-day activities such as bathing, preparing meals, shopping, managing finances, etc.?: No Are you currently unemployed and looking for a job?: No Are you interested in more education?: No Please select the resources that you would like help with: None Currently or been in a relationship where the following occur: No concerns reported THRIVE Score: 0 ABDIAS-7 AMB Questionnaire ABDIAS-7 Date ABDIAS - 7 assessed: 11/09/24 Feeling nervous, anxious, or on edge: 1 = Several days Not being able to stop or control worryin = Several days Worrying too much about different things: 1 = Several days Trouble relaxin = Several days Being so restless that it is hard to sit still: 1 = Several days Becoming easily annoyed or irritable: 1 = Several days Feeling afraid as if something awful might happen: 1 = Several days Total ABDIAS-7 score (0-4 normal; 5-9 mild; 10-14 moderate; 15-21 severe): 7 Source: Developed by Drs. Ronal Webb, Elizabeth Davis, Ryan Calvillo and colleagues, with an educational jomar from [employer]. ABDIAS-7 Assessment Billing ABDIAS-7 Assessment Tool: ABDIAS-7 Assessment 84955 Review of Systems Const Details: Const Denies chills, Denies fatigue, Denies fever(s), Denies headache(s) and Denies weakness ENT Denies dizziness and Denies headache(s) Card Denies chest pain, Denies lightheadedness, Denies dyspnea and Denies other (Palpitations) Resp Denies cough, Denies dyspnea, Denies wheezing and Denies other ( shortness of breath) GI Denies abdominal pain, Denies melena, Denies hematochezia, Denies change in bowel habits, Denies dyspepsia and Denies nausea Denies hematuria and Denies dysuria Musc Denies abnormal gait, Denies myalgias, Denies arthralgias, Denies numbness and Denies tingling Skin/Breast Denies rash, Denies unusual bruising and Denies wounds Neuro Denies abnormal gait, Denies dizziness, Denies headache(s), Denies memory loss, Denies numbness, Denies Sensory deficit (Neuro), Denies tingling and Denies weakness Psych Denies anxiety, Denies depression, Denies memory loss Endo Denies cold intolerance, Denies fatigue, Denies heat intolerance, Denies polydipsia and Denies polyuria Aller/Immun Denies wheezing Physical exam (Primary Care) Tobacco/Smoking Status: Tobacco use Status Tobacco use date assessed 08/03/24 11/09/24 08:40 Patient Tobacco Use Status Current everyday Tobacco 11/09/24 08:40 Tobacco use type Cigarette 11/09/24 08:40 e-Cigarette/Vaping Use Never Used 11/09/24 08:40 Depression Screening Interpretation: Positive Depression Screening Follow-up: Existing condition and In treatment Thrive Assessment: Date of Thrive Assessment Date Thrive assessed 06/04/24 11/09/24 08:40 Currently or been in a relationship where the following occur: No concerns reported Const Other: General: no acute distress and well developed Nutritional Appearance: well nourished Orientation/consciousness: patient oriented x3 HENMT Head: Yes normocephalic and Yes atraumatic Eyes General: appearance normal, both eyes and all related structures Pupils: Equal, round and reactive pupils present EOM: EOMs intact bilaterally Resp Effort & Inspection: normal respiratory effort Auscultation: clear to auscultation bilaterally Cardio Rate: regular rate Rhythm: regular rhythm Heart sounds: S1 normal heart sound present, S2 normal heart sound present, no gallops, no murmurs and no rubs GI Palpation (GI): No Abdominal aortic bruit present, Soft to palpation, nontender, No hepatosplenomegaly present and No Rebound tenderness present Auscultation: normal bowel sounds General: Yes no CVA tenderness Back/Spine/Pelvis Back: no CVA tenderness Cervical Spine: cervical ROM normal and No Cervical spine tenderness Thoracic/Lumbar Spine: thoraco-lumbar ROM normal, No pain with thoraco-lumbar ROM, No thoracic spinal tenderness and No lumbar spinal tenderness Extrem General: Yes normal to inspection, No edema and No calf tenderness Skin General: warm and dry. Normal skin color. Normal skin turgor Neuro General: patient oriented x3, gait normal and no focal neuro deficit Cranial nerves: Yes Equal, round and reactive pupils present Cognition (Neuro): normal cognition Gait exam (Neuro): Normal gait present Sensory Exam: No Sensory deficit (Neuro) Psych Appearance: grossly normal Affect: normal affect Attitude: cooperative Thought process: Normal thought process present Coding Level of Care Code Est Pt Level 4 (53801) Diagnoses Anxiety and depression F41.9; F32.A Laboratory tests ordered as part of a complete physical exam (CPE) Z00.00 Additional Codes ABDIAS-7 Assessment Billing - ABDIAS-7 Assessment Tool: ABDIAS-7 Assessment 06029 ([id number]) PHQ-9 - 19349 - PHQ-9 Billing: Yes ([id number]) Assessment & Plan Assessment & Plan (1) Anxiety and depression: Code(s): F41.9 - Anxiety disorder, unspecified; F32.A - Depression, unspecified Category: Medical Plan: She notes that her anxiety and depressive symptoms are generally well controlled. According to her , the patient is irritable when the sun starts to set in the evening, more often than not; patient confirms symptoms. Trazodone 25 mg daily at bedtime ordered for sleep/agitation/likely sundowning; advised to take as prescribed. Instructed on the risks, benefits, and potential adverse reactions of the medication. Continue to take duloxetine and lorazepam as prescribed. Perform lab work before next visit. Follow-up in 3 months for an extended physical exam, anxiety, depression, and labs review. Return sooner with symptoms or concerns. Verbalized understanding and agreed with the plan. (2) Laboratory tests ordered as part of a complete physical exam (CPE): Code(s): Z00.00 - Encounter for general adult medical examination without abnormal findings Category: Medical Plan: Fasting labs ordered as part of a complete physical exam. Advised to fast for at least 10 hours before getting labs drawn. May drink water Verbalized understanding and agreed with treatment plan. Orders: Orders Comprehensive [place]. Panel Fast 3 Months Z00.00 - Encounter for general adult medical examination without abnormal findings Microalbumin, Random (w Creat) 3 Months Z00.00 - Encounter for general adult medical examination without abnormal findings Complete Blood Count Auto Diff 3 Months Z00.00 - Encounter for general adult medical examination without abnormal findings Lipid Panel 3 Months Z00.00 - Encounter for general adult medical examination without abnormal findings TSH reflex Free T4 3 Months Z00.00 - Encounter for general adult medical examination without abnormal findings UA CC w/rflx Micro + Cult 3 Months Z00.00 - Encounter for general adult medical examination without abnormal findings Vitamin D 25-OH Total 3 Months Z00.00 - Encounter for general adult medical examination without abnormal findings Medications: New trazodone 25 mg (1/2 x 50 mg) PO BEDTIME 15 tabs 3RF sleep/agitation 30 days
[2024-11-09 08:54] VITALS: BP 143/71; PULSE 94; RESP 16; TEMP 36.8; O2SAT 99; BMI 21.6
[2024-11-09 09:24] VITALS: BP 110/80
--- OUTSIDE RECORDS SUMMARY | 2024-11-09 09:31 | XMS_ITS | Patient Health Record ---
Author Organization [facility] Address [address] [place] [address] Care Team Providers Care Air Quality Instrument Specialist Name Role Phone Jimmy Tinsley N.P. Primary Care Provider Ronal Durant [phone] Allergies No Known Allergies Reason For Referral [...] Status Risk Notes Problem Colon cancer screening (089984359) Colon cancer screening (Z12.11) Active confirmed Problem History of adenomatous polyp of colon (134104834) History of adenomatous polyp of colon (Z86.010) Active confirmed Problem History of polyp of colon (situation) (842679051) Personal history of colonic polyps (Z86.010) Active confirmed Problem Pre-procedure evaluation check (254491259) Encounter for other preprocedural examination (Z01.818) Active confirmed Problem 23164726 Weight loss (R63.4) Active confirmed Problem Alcohol abuse wi th other alcohol-induced disorder (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) Active confirmed Problem Diverticular disease of colon (577074045) Diverticulosis of large intestine without perforation or abscess without bleeding (K57.30) Active confirmed Problem 169946239 Nausea (R11.0) Active confirmed Problem 459768404 Gastroesophageal reflux disease without esophagitis (K21.9) Active confirmed Problem 315930637 Elevated liver enzymes (R74.8) Active confirmed Problem 28735116 Alcoholic liver disease (K70.9) Active confirmed Problem 01227985 Diarrhea, unspecified type (R19.7) Active confirmed Problem 91525787 Collagenous coli tis (K52.831) Active confirmed Problem Generalized abdominal pain (722463398) Abdominal pain, acute, generalized (R10.84) Active confirmed Problem 2350970 Alcoholism (F10.20) Active confirmed Plan Of Treatment Pending Test Test Name Order Date LIVER PROFILE 05/01/2018 IRON + IBC (FE) 05/01/2018 FERRITIN 05/01/2018 VITAMIN B12 AND FOLATE 05/01/2018 HEPATITIS B, C PROFILE 05/01/2018 [id number] (A1A) 05/01/2018 MITOCHONDRIAL AB 05/01/2018 SMOOTH MUSCLE [...] MEDICARE OF [place] [address] [place] [address] [id number] JOANNE HADDAD Self - patient is the insured [facility] [employer] [address] [place] [address] [id number] JOANNE HADDAD Self - patient is the insured Medical (General) History Medical History History ICD Code Anxiety Depression Denies NH,DM,CVA,Lung disease,renal dise ase Colonoscopy in 03/2006 with [...]
== END 2024-11-09 09:30 | disposition home or self-care (01) ==
LOC: HO.HMCFM 08:29
PROVIDERS: PCP Nurse Practitioner Family; Visit Provider Nurse Practitioner Family
DX: F41.9 Anxiety disorder, unspecified (principal); F32.A Depression, unspecified; Z00.00 Encounter for general adult medical examination without abnormal findings

== ENCOUNTER → 2024-11-09 08:28 | Outpatient (BNVA) | payer MEDICARE, SELFPAY | PROVIDERS: PCP Nurse Practitioner Family; Visit Provider Nurse Practitioner Family | DX: Z00.00 Encounter for general adult medical examination without abnormal findings (principal); F32.A Depression, unspecified; F41.9 Anxiety disorder, unspecified; E78.00 Pure hypercholesterolemia, unspecified | CPT/HCPCS: 96127; 99212 ==

== ENCOUNTER 2025-02-02 09:12 | Outpatient (REF) | payer MEDICARE, SELFPAY ==
[2025-02-02 10:58] LABS: MANUAL DIFF FLAG NO
[2025-02-02 11:02] LABS: Hematocrit 49.8 % (37.0-47.0); Hemoglobin 16.7 g/dl (12.0-16.0); Imm Gran Abs Auto 0.01 X10*3/uL (0.00-0.03); Imm Gran Pct Auto 0.2 % (0.0-0.4); Lymphocytes Absolute Auto 1.5 X10*3/uL (1.2-4.9); Mean Corpuscular HGB Conc 33.5 g/dl (31.0-35.0); Mean Corpuscular Hemoglobin 35.0 pg (27.0-33.0); Mean Corpuscular Volume 104.4 fL (80.0-98.0); NRBC Abs Auto 0.000 X10*3/uL (0.0-0.012); NRBC Pct Auto 0.0 /100WBC (0.0-0.2); Platelet Count 264 X10*3/uL (160-400); Red Blood Count 4.77 X10*6/uL (4.20-5.50); White Blood Count 6.5 X10*3/uL (4.8-10.8)
[2025-02-02 11:21] LABS: Alanine Aminotransferase 12 U/L (0-31); Albumin Level 4.4 g/dL (3.5-5.0); Alkaline Phosphatase 81 U/L (39-117); Anion Gap 13 (12-20); Aspartate Amino Transferase 24 U/L (5-31); Blood Urea Nitrogen 9 mg/dL (9-16); Calcium 9.7 mg/dL (8.4-10.2); Carbon Dioxide 29 mmol/L (22-29); Chloride 107 mmol/L (96-108); Cholesterol 230 mg/dL (<200); Estimated Glomerular Filt Rate > 60; HDL Cholesterol 90 mg/dL (>40); Potassium 4.6 mmol/L (3.3-5.1); Sodium 144 mmol/L (135-145); Total Protein 6.8 g/dL (6.5-8.0); Triglycerides 84 mg/dL (<150)
== END 2025-02-02 09:13 | disposition home or self-care (01) ==
LOC: HO.WFDLDS 09:12
PROVIDERS: Visit Provider Nurse Practitioner Family
DX: Z00.00 Encounter for general adult medical examination without abnormal findings (principal); Z13.6 Encounter for screening for cardiovascular disorders; Z13.21 Encounter for screening for nutritional disorder; Z13.29 Encounter for screening for other suspected endocrine disorder
CPT/HCPCS: 36415; 80053; 80061; 82306; 84443; 85025

== ENCOUNTER 2025-02-09 12:29 | Outpatient (AMB) | payer MEDICARE, SELFPAY ==
--- OUTSIDE RECORDS SUMMARY | 2023-11-06 03:30 | XMS_ITS ---
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 Primary Care Provider Ronal Durant [phone] REASON FOR VISIT screening,hx polyps Problems Problem Type SNOMED Code ICD Code Onset Dates Problem Status W/U Status Risk Notes Problem History of polyp of colon (situation) (816395439) Personal history of colonic polyps (Z86.010) Active confirmed Problem Diverticular disease of colon (122352230) Diverticulosis of large intestine without perforation or abscess without bleeding (K57.30) Active confirmed Encounters Encounter Location Date Provider Diagnosis [facility] [place] Outpatient [address] [place] [address] [phone] 11/06/2023 Ronal Abraham Colon cancer scree rhina Z12.11 ; Personal history of colonic polyps Z86.010 ; Diverticulosis of large intestine without perforation or abscess without bleeding K57.30 and Other hemorrhoids K64.8 Assessments Encounter Date Diagnosis (ICD Code) Assessment Notes Treatment Notes Treatment Clinical Notes Section Notes 11/06/2023 Colon cancer screening (ICD-10 - Z12.11) 11/06/2023 Personal history of colonic polyps (ICD-10 - Z86.010) 11/06/2023 Diverticulosis of large intestine without perforation or abscess without bleeding (ICD-10 - K57.30) 11/06/2023 Other hemorrhoids (ICD-10 - K64.8) Plan Of Treatment No Information Progress Notes * DEVI HADDADOB:1955 (69 yo F)Acc No.[id number]:11/06/2023 COLON WITH MAC Patient: JOANNE STATON Provider: Riri Abraham MD :1955 A ge:68 Y S ex:Female Date:11/06/2023 Address:[address] [place] [address] Pcp:Jimmy Tinsley NJeanP. Subjective: * Chief Complaints: * S creening,hx polyps Assessment: * Assessment: 1. C olon cancer screening - Z12.11 (Primary) 2 . P ersonal history of colonic polyps - Z86.010 3 . D iverticulosis of large intestine without perforation or abscess without bleeding - K57.30 4 . O ther hemorrhoids - K64.8 ? Plan: * Procedure Codes: G 0105 COLOREC CANCR SCR; COLNSCPY HI [id number] INTRVL 3+YRS PTS CLNSCP [id number] RCMND FLW-UP 10 YRS DOCD, Modifiers: 1P Billing Information: * Procedure Codes: G0105 COLOREC CANCR SCR; COLNSCPY HI RISK. 0529F INTRVL 3+YRS PTS CLNSCP DOCD. 0528F RCMND FLW-UP 10 YRS DOCD. Modifiers: 1P * The named appointment provid er may or may not be the originator of this progress note, and it is not deemed complete until electronically signed by the appointment provider. Sign off status: Pending * Provider: Riri Abraham MD Date: 0 11/06/2023 Generated for Armaan brown/Radha/Rulasmitting on: 1 04/12/2024 04:17 PM EST
--- NOTE | 2025-02-09 12:39 | A.OFFPC_ITS ---
Vital Signs 02/09/25 12:43 02/09/25 13:11 Height 5 ft 9 in Weight 148 lb 2 oz BMI 21.9 BP 147/64 H 140/90 H Blood Pressure Location Rt brachial Rt brachial Position Sitting Sitting Respiration 12 Pulse 99 Pulse Source Pulse Oximeter Temp 97.5 F Temp Source Temporal Artery Scan Pulse Oximetry (%) 99 Oxygen Delivery Method Room Air Intake Visit Reasons: 3 mos CPE, anx, dep, labs review Intake Note: CPE and review labs Server Security Administrator Required: No Allergies No Known Allergies Allergy (Verified 02/09/25 12:48) Medication List - Last Reconciled 02/09/25 by Jimmy Tinsley CNP atorvastatin 20 mg PO BEDTIME 90 days cholecalciferol (vitamin D3) 75 mcg PO DAILY 90 days duloxetine 120 mg PO QAM lorazepam 1 mg PO TID PRN trazodone 25 mg (1/2 x 50 mg) PO BEDTIME 30 days Tobacco use date assessed: 02/09/25 Fall risk assessment: No Falls in past year Last assessed Fall Risk: 02/09/25 Dental Screening Dental Screen Date: 02/09/25 Did you have a dental visit in the last 12 months?: Yes Did you have a dental problem in the last 6 months where you did not have access to dental care?: No Was dental information given to patient?: Patient has dentist HPI HPI Comments History of Present Illness Details 69-year-old female, accompanied by her h usband, presents for an extended physical exam and review of recent lab results. She admits to taking her medications as prescribed without adverse reactions. She notes that her mood is generally stable. Her notes that she starts to get grumpy in the evening, but happy light seems to help. Acute issue(s) - None Past Medical History - Seizure, arthritis of both hips, tobac co dependence, alcohol dependence, fatty liver, hypercholesterolemia, anxiety, and depression. Social History - Smokes 4 cigarettes daily, have been s moking since she was 16 y/o. Does not vape. Drinks 1 beer + 2-3 shots of whisky daily, has been drinking since age 30. Denies recreational drug use - Has been making healthy dietary choice s. Active but does not exercise. Generally sleep well Health maintenance - Last eye exam was 6-[address] Royal - Last dental visit was last week - Last Tdap vaccine was in 05/06/2017 - She is up-to-date on the pneumonia and shingles vaccines - Has not been vaccinated for the flu season; declines vaccination - Last pap smear test was 6 years ago: Normal. She no longer performs Pap smear test - Last mammogram was in 04/29/2024: Negat claire - [place] [facility] [place] Diverticulosis, internal hemorrhoids. Recommended repeat colonoscopy in 5 years - Last dexa scan was in 02/12/2023: Oste openia - Last LDCT was in 04/23/2024: [facility] - Followed by psychiatry every 2-3 month s via telehealth [facility] Medical History (Updated 02/09/25 @ 13:32 by Jimmy Tinsley CNP) Osteopenia Alcohol dependence Nicotine dependence, cigarettes, uncomplicated Hx of fracture of wrist Subdural hematoma Mesenteric artery thrombosis Elevated liver enzymes Hx of fracture of rib GERD (gastroesophageal reflux disease) Diabetes Arthritis Depression Anxiety Surgical History (Updated 02/24/24 @ 13:36 by Flores Tang PA-C) History of colonoscopy Hx of bilateral hip replacements History of esophagogastroduodenoscopy (EGD) History of tonsillectomy History of tubal ligation Family History Father Alzheimers disease Mother Heart disease COPD (chronic obstructive pulmonary disease) CHF (congestive heart failure) Sister Brain tumor Social History (Updated 06/05/24 @ 09:22 by Pat Farley MA) Household Members: Spouse Housing: House Alcohol intake: current Alcohol intake frequency: a few times a week Alcohol type: beer Patient Tobacco Use Status: Current everyday Tobacco user Tobacco use type: Cigarette Cigarettes Per Day: 4 Years Smoked: 45 e-Cigarette/Vaping Use: Never Used Second Hand Smoke Exposure: No service: No Current occupational status: retired Current occupational exposures/hazards: No Sexual orientation: Unable to collect Gender identity: Unable to collect Cognitive needs: No Hearing needs: No Vision needs: No Questionnaire PHQ-9 Over the last 2 weeks, how often have you been bothered by any of the following problems? 1. Little interest or pleasure in doing things: several days 2. Feeling down, depressed, or hopeless: more than half the days 3. Trouble falling or staying asleep, or sleeping too much: more than half the days 4. Feeling tired or having little energy: several days 5. Poor appetite or overeating: not at all 6. Feeling bad about yourself - or that you are a failure or have let yourself or your family down: several days 7. Trouble concentrating on things, such as reading the newspaper or watching television: not at all 8. Moving or speaking so slowly that other people could have noticed. Or the opposite - being so fidgety or restless that you have been moving around a lot more than usual: not at all 9. Thoughts that you would be better off or of hurting yourself in some way: not at all Total score: 7 Depression Screening Interpretation: Positive Depression Screening Follow-up: Existing condition and In treatment Depression Screening Done: Yes 48736 - PHQ-9 Billing: Yes Source: Developed by Drs. Ronal Webb, Elizabeth Davis, Ryan Calvillo and colleagues, with an educational jomar from [employer]. Thrive Questionnaire Date Thrive assessed: 02/09/25 I am a: Patient What is your living situation today?: I have a steady place to live Within the past 12 months, did the food you bought not last and you didn't have the money to get more?: Never true Within the past 12 months, did you worry whether your food would run out before you got money to buy more?: Never true Do you have trouble paying for medicines?: No Do you have trouble getting transportation to medical appointments?: I choose not to answer this question Do you have trouble paying your heating and electricity bill?: No Do you have trouble taking care of your child, family member or friend?: No Do you have trouble with day-to-day activities such as bathing, preparing meals, shopping, managing finances, etc.?: No Are you currently unemployed and looking for a job?: No Are you interested in more education?: No Please select the resources that you would like help with: None Currently or been in a relationship where the following occur: No concerns reported THRIVE Score: 0 AUDIT C Alcohol Use Questionnaire (AUDIT-C) 1. How often do you have a drink containing alcohol?: Never 3. How often do you have six or more drinks on one occasion?: Never Total Score: 0 Score Reviewed/Action Taken: Yes ABDIAS-7 AMB Questionnaire ABDIAS-7 Date ABDIAS - 7 assessed: 02/09/25 Feeling nervous, anxious, or on edge: 2 = More than half the days Not being able to stop or control worryin = More than half the days Worrying too much about different things: 1 = Several days Trouble relaxin = More than half the days Being so restless that it is hard to sit still: 1 = Several days Becoming easily annoyed or irritable: 1 = Several days Feeling afraid as if something awful might happen: 1 = Several days Total ABDIAS-7 score (0-4 normal; 5-9 mild; 10-14 moderate; 15-21 severe): 10 Source: Developed by Drs. Ronal Webb, Elizabeth Davis, Ryan Calvillo and colleagues, with an educational jomar from [employer]. ABDIAS-7 Assessment Billing ABDIAS-7 Assessment Tool: ABDIAS-7 Assessment 29672 Review of Systems Const Details: Denies chills, Denies fatigue, Denies fever(s), Denies headache(s) and Denies weakness HEENT Denies change in vision, Denies dizziness, Denies headache(s), Denies hearing loss, Denies nasal congestion, Denies sinus pain, Denies sinus pressure and Denies sore throat Card Denies chest pain, Denies lightheadedness, Denies dyspnea and Denies other (palpitations) Resp Denies cough, Denies dyspnea and Denies wheezing GI Denies abdominal pain, Denies melena, Denies hematochezia, Denies change in bowel habits, Denies dyspepsia and Denies nausea Denies hematuria and Denies dysuria Musc Denies abnormal gait, Denies myalgias, Denies arthralgias, Denies numbness and Denies tingling Skin/Breast Denies rash, Denies unusual bruising and Denies wounds Neuro Denies abnormal gait, Denies dizziness, Denies headache(s), Denies memory loss, Denies numbness, Denies Sensory deficit (Neuro), Denies tingling and Denies weakness Psych Denies anxiety, Denies depression and Denies memory loss Endo Denies cold intolerance, Denies fatigue, Denies heat intolerance, Denies polydipsia and Denies polyuria Andrade/Lymph Denies easy bleeding and Denies easy bruising Aller/Immun Denies wheezing Physical exam (Primary Care) Vital Signs: Last Vital Signs Temp 97.5 F 02/09/25 12:43 Pulse 99 02/09/25 12:43 Resp 12 02/09/25 12:43 BP 140/90 H 02/09/25 13:11 Pulse Ox 99 02/09/25 12:43 Oxygen Delivery Method Room Air 02/09/25 12:43 BMI result Body Mass Index 21.9 Tobacco/Smoking Status: Tobacco use Status Tobacco use date assessed 02/09/25 02/09/25 12:42 Patient Tobacco Use Status Current everyday Tobacco 02/09/25 12:40 Tobacco use type Cigarette 02/09/25 12:40 e-Cigarette/Vaping Use Never Used 02/09/25 12:40 PHQ-9: PHQ-9 Score PHQ-9: Total score 7 02/09/25 12:57 Depression Screening Interpretation: Positive Depression Screening Follow-up: Existing condition and In treatment Thrive Assessment: Date of Thrive Assessment Date Thrive assessed 02/09/25 02/09/25 12:40 Currently or been in a relationship where the following occur: No concerns reported Const Other: General: no acute distress, well developed, alert and awake Nutritional Appearance: well nourished Orientation/consciousness: patient oriented x3 HENMT Head: Yes normocephalic and Yes atraumatic Ears: hearing grossly normal bilaterally and TM's normal bilaterally General nose exam: Normal external nose present and Normal nares present Mouth: Normal oral and palatal mucosa present and moist mucous membranes Teeth and gingiva: dentition normal Throat: Yes oropharynx normal Eyes Pupils: Equal, round and reactive pupils present and Pupil accommodation reflex normal EOM: EOMs intact bilaterally Neck Neck: Yes normal visual inspection, Yes no lymphadenopathy and Yes trachea midline Thyroid: Thyroid normal Carotids: no bruits Lymphatic: no lymphadenopathy noted Chest Chest palpation & inspection: normal inspection of the chest Resp Effort & Inspection: normal respiratory effort Auscultation: clear to auscultation bilaterally Cardio Rate: regular rate Rhythm: regular rhythm Heart sounds: S1 normal heart sound present, S2 normal heart sound present, no gallops, no murmurs and no rubs Bruits: no abdominal aortic bruits and no carotid bruits GI Palpation (GI): No Abdominal aortic bruit present, Soft to palpation, nontender, No hepatosplenomegaly present and No Rebound tenderness present Auscultation: normal bowel sounds General: Yes no CVA tenderness Back/Spine/Pelvis Back: no CVA tenderness Cervical Spine: cervical ROM normal and No Cervical spine tenderness Thoracic/Lumbar Spine: thoraco-lumbar ROM normal, No pain with thoraco-lumbar ROM, No thoracic spinal tenderness and No lumbar spinal tenderness Skin General: warm and dry. Normal skin color. Normal skin turgor Lesions: no lesions Rashes: no rashes Trauma: no lacerations or abrasions Wounds: no wounds Nails: normal Neuro General: patient oriented x3, gait normal and CN's II-XI intact bilaterally Cranial nerves: Yes Equal, round and reactive pupils present Cognition (Neuro): normal cognition Gait exam (Neuro): Normal gait present Motor exam (neuro): 5/5 motor strength present throughout Sensory Exam: No Sensory deficit (Neuro) Deep tendon reflexes (DTR's): Right patellar reflex intensity grade: 2+ and Left patellar reflex intensity grade: 2+ Extrem General: Yes normal to inspection, No edema and No calf tenderness Psych Appearance: grossly normal Affect: normal affect Attitude: cooperative Thought process: Normal thought process present Coding Level of Care Code Est Pt Level 3 (87459) Est Pt Prev Care >65y(33902) Diagnoses Normal physical examination, routine Z00.00 Hyperlipidemia E78.5 Elevated fasting glucose R73.01 Nicotine dependence, cigarettes, uncomplicated F17.210 Additional Codes ABDIAS-7 Assessment Billing - ABDIAS-7 Assessment Tool: ABDIAS-7 Assessment 73848 ([id number]) PHQ-9 - 64840 - PHQ-9 Billing: Yes ([id number]) Assessment & Plan Assessment & Plan (1) Normal physical examination, routine: Code(s): Z00.00 - Encounter for general adult medical examination without abnormal findings Category: Medical Plan: Tandem gait is slightly impaired, otherwise no functional limitation noted. Continue current treatment regimen. Healthy diet and routine exercise encouraged. Encouraged to cut down on local intake; no more than 2 drinks daily or 5 weekly. Perform fasting lab work before next visit. Follow-up in 2-3 months for transfer of care with a new provider within the practice. Return sooner with symptoms or concerns. Verbalized understanding and agreed with the plan. (2) Hyperlipidemia: Code(s): E78.5 - Hyperlipidemia, unspecified Category: Medical Plan: Recent total cholesterol and LDL levels the elevated, 230 and 124 respectively, previous levels were 172 and 75 respectively. Triglycerides and HDL levels are normal. Continue current treatment regimen. Advised to limit foods high in saturated fat and avoid foods high in trans fat. Routine exercise encouraged. Fast for 10-12 hours, may drink water, and perform lipid panel blood work a few days before next visit. Follow-up in 2-3 months. Return sooner with symptoms or concerns. Verbalized understanding and agreed with the plan. (3) Elevated fasting glucose: Code(s): R73.01 - Impaired fasting glucose Category: Medical Plan: Recent fasting glucose is slightly elevated, 109. Healthy diet, including low carbs encouraged. Will recheck fasting glucose. Verbalized understanding and agreed with the plan. (4) Nicotine dependence, cigarettes, uncomplicated: Comment: (onset 16 for 52 years at 1/2 ppd, now 4cig/day, 25pyh) Code(s): F17.210 - Nicotine dependence, cigarettes, uncomplicated Category: Medical Plan: She smokes 4 cigarettes daily, have been smoking since she was 16 y/o. Last LDCT was in 04/23/2024: Benign. Declines medication treatment for nicotine dependence at this time. Instructed on the health risks and complications of cigarette smoking and cessation encouraged. Follow-up as needed. Verbalized understanding and agreed with the plan. Orders: Orders Lipid Panel 2 Months E78.5 - Hyperlipidemia, unspecified Glucose Fasting 2 Months R73.01 - Impaired fasting glucose
[2025-02-09 12:43] VITALS: BP 147/64; PULSE 99; RESP 12; TEMP 36.4; O2SAT 99; BMI 21.9
[2025-02-09 13:11] VITALS: BP 140/90
--- OUTSIDE RECORDS SUMMARY | 2025-02-09 16:18 | XMS_ITS | Patient Health Record ---
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 Primary Care Provider Ronal Durant Unavailable [phone] Allergies No Known Allergies Reason For Referral No Information Medications Medication SIG (Take, Route, Frequency, Duration) Notes Start Date End Date Status Entocort EC 3 MG Capsule Delayed Release Particles 3 pills QD for 2months, then 2 pills QD Orally QD 05/02/2018 Not-Taking/PRN DULoxetine HCl 60 MG Capsule Delayed Release Particles 2 capsule Orally Once a day Active LORazepam 1 MG Tablet 1 tablet Orally 3 times a day/prn Active Immunizations Vaccine Route Administration Date Status Comme nts Influenza Unknown 11/25/2017 Administered Influenza Unknown 11/05/2018 Administered Influenza Unknown 11/25/2021 Administered Social History Tobacco Use: Social History Observation Description Date Details (start date - stop date) Current Smoker NA - NA Social History Drugs/Alcohol: Social Info Question Answer Notes Alcohol Screen Did you have a drink containing alcohol in the past year? Yes How often did you have a drink containing alcohol in the past year? 2 to 3 times a week (3 points) How many drinks did you have on a typical day when you were drinking in the past year? 1 or 2 drinks (0 point) How often did you have 6 or more drinks on one occasion in the past year? Never (0 point) Points 3 Interpretation Positive Tobacco Use: Social Info Question Answer Notes Tobacco Use/Smoking Patient is a current smoker How often do you smoke cigarettes? every day How many cigarettes a day do you smoke? 5 or less How soon after you wake up do you smoke your first cigarette? 31-60 minutes Are you interested in quitting? Thinking about quitting Additional Details Category Social Info Options Details Miscellaneous: Marital status: Occupation: unemployed Section Notes: Smoker; 2 drinks about 3 [...] Status Risk Notes Problem Colon cancer screening (813595325) Colon cancer screening (Z12.11) Active confirmed Problem History of adenomatous polyp of colon (561462542) History of adenomatous polyp of colon (Z86.010) Active confirmed Problem History of polyp of colon (situation) (659612398) Personal history of colonic polyps (Z86.010) Active confirmed Problem Pre-procedure evaluation check (651744512) Encounter for other preprocedural examination (Z01.818) Active confirmed Problem Weight loss (358448894) Weight loss (R63.4) Active confirmed Problem Alcohol induced disorder co-occurrent and due to alcohol dependence (disorder) (915954882774690) 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) Active confirmed Problem Diverticular disease of colon (056777286) Diverticulosis of large intestine without perforation or abscess without bleeding (K57.30) Active confirmed Problem Nausea (078811809) Nausea (R11.0) Active confir med Problem Gastroesophageal reflux disease without esophagitis (334913592) Gastroesophageal reflux disease without esophagitis (K21.9) Active confirmed Problem Elevated liver enzymes level (553399850) Elevated liver enzymes (R74.8) Active confirmed Problem Alcoholic liver disease (11372736) Alcoholic liver disease (K70.9) Active confirmed Problem Diarrhea (01150180) Diarrhea, unspecified type (R19.7) Active confirmed Problem Collagenous colitis (96954679) Collagenous colitis (K52.831) Active confirmed Problem Generalized abdominal pain (557025056) Abdominal pain, acute, generalized (R10.84) Active confirmed Problem Alcoholism (7567631) Alcoholism (F10.20) Active confirmed Plan Of Treatment Pending Test Test Name Order Date LIVER PROFILE 05/01/2018 IRON + IBC (FE) 05/01/2018 FERRITIN 05/01/2018 VITAMIN B12 AND FOLATE 05/01/2018 HEPATITIS B, C PROFILE 05/01/2018 [id number] (A1A) 05/01/2018 MITOCHONDRIAL AB 05/01/2018 SMOOTH MUSCLE [...] Date MEDICARE OF [place] [address] [facility] [place] [address] [id number] JOANNE HADDAD Self - patient is the insured [facility] [employer] [address] [place] [address] [phone] [id number] JOANNE HADDAD Self - patient is the [...]
== END 2025-02-09 13:29 | disposition home or self-care (01) ==
LOC: HO.HMCFM 12:30
PROVIDERS: PCP Nurse Practitioner Family; Visit Provider Nurse Practitioner Family
DX: Z00.00 Encounter for general adult medical examination without abnormal findings (principal); E78.5 Hyperlipidemia, unspecified; R73.01 Impaired fasting glucose; F17.210 Nicotine dependence, cigarettes, uncomplicated

== ENCOUNTER → 2025-02-09 12:29 | Outpatient (BNVA) | payer MEDICARE, SELFPAY | PROVIDERS: PCP Nurse Practitioner Family; Visit Provider Nurse Practitioner Family | DX: Z00.00 Encounter for general adult medical examination without abnormal findings (principal); E78.5 Hyperlipidemia, unspecified; R73.01 Impaired fasting glucose; F17.210 Nicotine dependence, cigarettes, uncomplicated; Z13.31 Encounter for screening for depression; Z13.39 Encounter for screening examination for other mental health and behavioral disorders | CPT/HCPCS: 96127; 99397 ==